=== PATIENT | male | born 1995 | race Caucasian/White ===

== ENCOUNTER 2016-11-01 18:47 | Inpatient (IN) | payer OTHER ==
[~2016-11-01] VITALS: Ht 175.3 cm; Wt 64.5 kg
[2016-11-01] MEDS ORDERED: ACETAMINOPHEN 500 MG TAB PO STA (19:19)
[2016-11-01] MEDS ORDERED: SODIUM CHLORIDE 0.9% 1000ML 1,000 ML IV STA (19:19)
[2016-11-01] MEDS ORDERED: DEXT1LIQ36 PO (19:24)
--- NOTE | 2016-11-01 19:40 | EMERGENCY ROOM VISIT NOTE ---
History First contact with patient: 19:04 Chief Complaint: FEVER Stated Complaint: SWOLLEN FEET History of Present Illness The patient is a 21 year old male who presents to the Emergency Room with complaints of a 4 day history of lower extremity swelling. He noticed that his legs were first swollen on Saturday and have been getting progressively more swollen over the last few days. This afternoon he went to [facility] that found the patient was febrile and recommended he come to the Emergency department. The patient denies any feelings of fever, shortness of breath, chills, chest pain, nausea, vomiting, abdominal pain, muscle pain, diarrhea, dysuria, or any other symptoms. He denies any trauma or abrasions to his feet. He denies any recent travel or sick contacts. The patient was born in [place] and has no history of childhood diseases. Review of Systems See HPI for pertinent positives and negatives. A total of ten systems were reviewed and were otherwise negative. Past Medical/Surgical History Medical Problems: (1) Hypoalbuminemia (2) Neutropenic fever (3) No Known Active Medical Problems Social History Smoking Status: Never Smoker Smokeless Tobacco Use: No Alcohol Use: occasionally Drug Use: none Current/Historical Medications Scheduled PRN Otrcjexsokjnhkid-Fejtffmbko-Ey (Vicks Nyquil Cold & Flu), 1 DOSE PO HS PRN for COLD SYMPTOMS Physical Exam Vital Signs Date Time Temp Pulse Resp B/P (MAP) Pulse Ox O2 Delivery O2 Flow Rate FiO2 11/01/16 22:08 36.9 92 16 99/51 99 Room Air 11/01/16 20:36 37.7 101 18 105/50 99 Room Air 11/01/16 20:05 39.0 11/01/16 18:55 39.5 123 18 110/58 96 Room Air Physical Exam GENERAL: Awake, alert, well-appearing, in no distress HENT: Normocephalic, atraumatic. Oropharynx unremarkable. EYES: Normal conjunctiva. Sclera non-icteric. NECK: Supple. No nuchal rigidity. Trachea midline. RESPIRATORY: Clear to auscultation. CARDIAC: Regular rate, normal rhythm. Extremities warm and well perfused. Pulses equal. ABDOMEN: Soft, non-distended. No tenderness to palpation. No rebound or guarding. No masses. RECTAL: Deferred. MUSCULOSKELETAL: Chest examination reveals no tenderness. The back is symmetrical on inspection without obvious abnormality. There is no CVA tenderness to palpation. No joint edema. LOWER EXTREMITIES: Bilateral extremity swelling, nonpitting edema, warm to touch , no visible abrasions or erythema NEURO: Normal sensorium. No sensory or motor deficits noted. SKIN: No rash or jaundice noted. Medical Decision & Procedures Laboratory Results 11/01/16 19:30 Red Blood Count 2.80, Mean Corpuscular Volume 87.9, Mean Corpuscular Hemoglobin 29.3, Mean Corpuscular Hemoglobin Concent 33.3, Mean Platelet Volume 9.9, Neutrophils (%) (Auto) 53.6, Lymphocytes (%) (Auto) 35.4, Monocytes (%) (Auto) 10.2, Eosinophils (%) (Auto) 0.0, Basophils (%) (Auto) 0.8, Neutrophils # (Auto ) 0.68, Lymphocytes # (Auto) 0.45, Monocytes # (Auto) 0.13, Eosinophils # (Auto ) 0.00, Basophils # (Auto) 0.01 11/01/16 19:30 Test 11/01/16 00:00 11/01/16 19:30 11/01/16 19:35 11/01/16 21:53 Urine Color DK YELLOW Urine Appearance CLEAR (CLEAR) Urine pH 6.5 (4.5-7.5) Urine Specific [place] 1.022 (1.000-1.030) Urine Protein NEG (NEG) Urine Glucose (UA) NEG (NEG) Urine Ketones TRACE (NEG) Urine Occult Blood NEG (NEG) Urine Nitrite NEG (NEG) Urine Bilirubin NEG (NEG) Urine Urobilinogen POS (NEG) Urine Leukocyte Esterase NEG (NEG) Urine WBC (Auto) 0 /hpf (0-5) Urine RBC (Auto) 0-4 /hpf (0-4) Urine Hyaline Casts (Auto) 0 /lpf (0-5) Urine Epithelial Cells (Auto) 5-10 /lpf (0-5) Urine Bacteria (Auto) NEG (NEG) White Blood Count 1.27 K/uL (4.8-10.8) Red Blood Count 2.80 M/uL (4.7-6.1) Hemoglobin 8.2 g/dL (14.0-18.0) Hematocrit 24.6 % (42-52) Mean Corpuscular Volume 87.9 fL (80-100) Mean Corpuscular Hemoglobin 29.3 pg (25-34) Mean Corpuscular Hemoglobin Concent 33.3 g/dl (32-36) Platelet Count 130 K/uL (130-400) Mean Platelet Volume 9.9 fL (7.4-10.4) Neutrophils (%) (Auto) 53.6 % Lymphocytes (%) (Auto) 35.4 % Monocytes (%) (Auto) 10.2 % Eosinophils (%) (Auto) 0.0 % Basophils (%) (Auto) 0.8 % Neutrophils # (Auto) 0.68 K/uL (1.4-6.5) Lymphocytes # (Auto) 0.45 K/uL (1.2-3.4) Monocytes # (Auto) 0.13 K/uL (0.11-0.59) Eosinophils # (Auto) 0.00 K/uL (0-0.5) Basophils # (Auto) 0.01 K/uL (0-0.2) RDW Standard Deviation 57.5 fL (36.4-46.3) RDW Coefficient of Variation 17.8 % (11.5-14.5) Immature Granulocyte % (Auto) 0.0 % Immature Granulocyte # (Auto) 0.00 K/uL (0.00-0.02) Nucleated RBC Absolute Count (auto) 0.02 K/uL (0-0) Nucleated Red Blood Cells % 1.3 % Large Platelets 1+ Polychromasia 1+ Hypochromasia PRESENT Ovalocytes 1+ Erythrocyte Sedimentation Rate 2 mm/hr (0-14) Prothrombin Time 15.7 SECONDS (9.0-12.0) Prothromb Time International Ratio 1.4 (0.9-1.1) Activated Partial Thromboplast Time 31.3 SECONDS (21.0-31.0) Partial Thromboplastin Ratio 1.2 Anion Gap 8.0 mmol/L (3-11) Est Creatinine Clear Calc Drug Dose 96.3 ml/min Estimated GFR () 109.1 Estimated GFR (Non- 94.1 BUN/Creatinine Ratio 12.1 (10-20) Calcium Level 7.4 mg/dl (8.5-10.1) Total Bilirubin 1.6 mg/dl (0.2-1) Direct Bilirubin 0.8 mg/dl (0-0.2) Aspartate Amino Transf (AST/SGOT) 121 U/L (15-37) Alanine Aminotransferase (ALT/SGPT) 110 U/L (12-78) Alkaline Phosphatase 64 U/L (45-117) Total Creatine Kinase 66 U/L (39-308) Creatine Kinase MB < 0.5 ng/ml (0.5-3.6) Creatine Kinase MB Ratio (0-3.0) Troponin I < 0.015 ng/ml (0-0.045) C-Reactive Protein 1.55 mg/dl (0-0.29) Total Protein 6.6 gm/dl (6.4-8.2) Albumin 3.0 gm/dl (3.4-5.0) Lipase 126 U/L (73-393) Lyme Disease IgG Antibody NEG (NEG) Lyme Disease IgM Antibody NEG (NEG) Hepatitis B Surface Antigen NEG (NEG) Hepatitis C Antibody NEG (NEG) Influenza Type A Antigen Neg for Influ A (NEG) Influenza Type B Antigen Neg for Influ B (NEG) Test 11/01/16 22:02 Medications Administered Medications (Trade) Dose Ordered Sig/Ahsan Route Start Time Stop Time Status Last Admin Dose Admin Sodium Chloride 1,000 ml @ 999 mls/hr Q1H1M STAT IV 11/01/16 19:19 11/01/16 20:19 DC 11/01/16 19:19 999 MLS/HR Acetaminophen (Tylenol Tab) 1,000 mg NOW STAT PO 11/01/16 19:19 11/01/16 19:21 DC 11/01/16 19:31 1,000 MG Piperacillin Sod/ Tazobactam Sod (Zosyn Iv) 4.5 gm NOW STAT IV 11/01/16 21:23 11/01/16 21:24 DC 11/01/16 22:06 4.5 GM Medical Decision Patient is a 21 year old male that presents with a 4 day history of lower extremity swelling Differential Diagnosis: Cellulitis, Influenza Virus, Viral Illness, Myocarditis , Pericarditis, Bacterial Infection, Renal Disease Labs Ordered: Blood Culture, CBC, BMP, Liver Profile, ESR, CRP, Lyme, Troponin, CKMB, CK Imaging: Chest Xray, EKG - CBC - Low WBC, RBC, Hgb and Neutropenic - Elevated liver function tests including AST, ALT, and Bili Based on findings discussed case with Dr. Jain who agreed to see the patient and evaluate Impression Primary Impression: Neutropenic fever Additional Impressions: Swelling of lower extremity Elevated liver enzymes Departure Information Dispostion Admitted as an inpatient Condition FAIR Referrals No Doctor, Assigned (PCP) Patient Instructions [facility] Problem Qualifiers
--- NOTE | 2016-11-01 20:01 | DIAGNOSTIC IMAGING REPORT ---
CHEST ONE VIEW PORTABLE HISTORY: Evaluate Fever/Sepsis COMPARISON: None. FINDINGS: The lungs are clear. Cardiac silhouette is normal in size. No pleural effusions. No pneumothorax. IMPRESSION: No acute process. Electronically signed by: Nasir Laboy M.D. 11/01/2016 8:00 PM Dictated Date/Time: 11/01/2016 7:58 PM
[2016-11-01 20:11] LABS: HEMATOCRIT 24.6 % (42-52); MEAN CELL VOLUME 87.9 fL (80-100); MEAN CORPUSCULAR HEMOGLOBIN 29.3 pg (25-34); MEAN CORPUSCULAR HGB CONC 33.3 g/dl (32-36); MEAN PLATELET VOLUME 9.9 fL (7.4-10.4); PLATELET COUNT 130 K/uL (130-400); WHITE BLOOD COUNT 1.27 K/uL (4.8-10.8)
[2016-11-01 20:14] LABS: INR 1.4 (0.9-1.1); PARTIAL THROMBOPLASTIN RATIO 1.2; PROTHROMBIN TIME (PATIENT) 15.7 SECONDS (9.0-12.0)
[2016-11-01 20:19] LABS: BUN/CREATININE RATIO 12.1 (10-20); CALCIUM 7.4 mg/dl (8.5-10.1); CREATININE 1.1 mg/dl (0.60-1.40)
[2016-11-01 20:45] LABS: BASO % 0.8 %; BASO ABS # 0.01 K/uL (0-0.2); COMPLETE YES; HYPOCHROMIA PRESENT; LARGE PLATELETS 1+; LYMPH % 35.4 %; LYMPH ABS # 0.45 K/uL (1.2-3.4); MONO % 10.2 %; NEUT % 53.6 %; OVALOCYTES 1+; POLYCHROMASIA 1+
[2016-11-01 20:54] LABS: LYME DISEASE AB IGG NEG (NEG); LYME DISEASE AB IGM NEG (NEG)
[2016-11-01 20:59] LABS: C-REACTIVE PROTEIN 1.55 mg/dl (0-0.29)
[2016-11-01 21:06] LABS: URINE APPEARANCE CLEAR (CLEAR); URINE BILIRUBIN NEG (NEG); URINE COLOR DK YELLOW; URINE NITRITE NEG (NEG); URINE PH 6.5 (4.5-7.5); URINE SPECIFIC GRAVITY 1.022 (1.000-1.030); UROBILINOGEN POS (NEG); ZZUR CULT IF INDIC CLEAN CATCH NO
[2016-11-01 21:10] LABS: MANUAL MICROSCOPIC REQUIRED? NO; REVIEW REQ? NO
[2016-11-01] MEDS ORDERED: PIPERACILLIN/TAZOBACTAM 3.375 GM/100ML D5W IV STA (21:19)
[2016-11-01] MEDS ORDERED: PIPERACILLIN/TAZOBACTAM 4.5 GM/100ML D5W IV STA (21:23)
[2016-11-01] MEDS ORDERED: MAGNESIUM HYDROXIDE SUSP 30 ML UDC PO PRN (22:00)
[2016-11-01] MEDS ORDERED: ALUMINUM/MAGNESIUM/SIMETH (MAALOX MAX) 30 ML UDC PO PRN (22:00)
[2016-11-01] MEDS ORDERED: ONDANSETRON INJ 2 MG/ML 2 ML VIAL IV PRN (22:00)
[2016-11-01 22:28] LABS: MAGNESIUM 2.3 mg/dl (1.8-2.4); PHOSPHORUS 2.6 mg/dl (2.5-4.9)
[2016-11-01] MEDS ORDERED: PATIENT'S ALLERGY INFO NEEDS ENTERED SCH (22:30)
[2016-11-01 23:24] VITALS: BP 11/67; PULSE 98; TEMP 36.8; O2SAT 99; Ht 175.3 cm; Wt 64.5 kg
[2016-11-02] VITALS (7 sets, daily range): BP systolic 110–111; BP diastolic 62–71; PULSE 97–100; TEMP 36.8–38.3; O2SAT 96–100
[2016-11-02] MEDS: LEVOFLOXACIN / D5W 750 MG in PREMIXED IN D5W 150 ML IV SCH ×2 (00:09→22:27)
--- NOTE | 2016-11-02 01:59 | History and Physical ---
History & Physical Date & Time of Service: Nov 02, 2016 at 01:40 Chief Complaint: Hypoalbuminemia, Neutropenic Fever Primary Care Physician: No Doctor, Assigned History of Present Illness Source: patient This is a 21 yo m with a f[place] background that it presenting to us with bilat LE edema. He states that on Saturday he started to notice this lower extremity edema. Initially it would improve however more recently it has sustained and it concerned him so he came to the ED for evaluation. While here he was found to be febrile, pancytopenic and with +4 bilat LE edema. He was unaware of the fever. He denies chest pain, SOB, presyncope, headache, tinnitus, myalgias, change in urine or bowel habits. 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 He is originally from [place]. No recent changes at home except he recently ended a relationship. He does not know of any blood disorders in the family and denies any medical problems. Very occasional alcohol use and denies using any supplements or drugs. Past Medical/Surgical History NIl Family History Patient reports no known family medical history. Social History Smoking Status: Never Smoker Smokeless Tobacco Use: No Alcohol Use: occasionally Drug Use: none Marital Status: single Occupational Status: [employer] student Allergies Coded Allergies: No Known Allergies (Unverified , 11/01/16) Home Medications Scheduled PRN Citsffuyndfislje-Ptgacbszey-Wq (Vicks Nyquil Cold & Flu), 1 DOSE PO HS PRN for COLD SYMPTOMS Review of Systems Constitutional: + fever, No chills Eyes: No worsening of vision ENT: No hearing loss Respiratory: No cough, No sputum, No wheezing, No shortness of breath, No dyspnea on exertion, No dyspnea at rest Cardiovascular: No chest pain Abdomen: No pain, No nausea, No vomiting, No diarrhea, No constipation Musculoskeletal: + swelling (bilat LE edema), No joint pain, No muscle pain Genitourinary - Male: No hematuria, No dysuria Neurologic: No weakness, No numbness/tingling, No balance problems Psychiatric: No depression symptoms Endocrine: No fatigue Hematologic / Lymphatic: No abnormal bleeding/bruising Integumentary: No rash Physical Exam Vital Signs Date Time Temp Pulse Resp B/P (MAP) Pulse Ox O2 Delivery O2 Flow Rate FiO2 11/01/16 23:24 36.8 98 18 11/ 99 Room Air 11/01/16 22:42 37.2 92 20 107/66 100 Room Air 11/01/16 22:08 36.9 92 16 99/51 99 Room Air 11/01/16 20:36 37.7 101 18 105/50 99 Room Air 11/01/16 20:05 39.0 11/01/16 18:55 39.5 123 18 110/58 96 Room Air General Appearance: no apparent distress, + thin Head: normocephalic, atraumatic Eyes: normal inspection ENT: normal ENT inspection Neck: supple Respiratory/Chest: normal breath sounds, no respiratory distress, no accessory muscle use Cardiovascular: regular rate, rhythm, no murmur Abdomen/GI: normal bowel sounds, non tender, soft Extremities/Musculoskelatal: normal inspection, no calf tenderness, + pedal edema (+4 bilat pedal edema, warm to touch but no erythema) Neurologic/Psych: alert, normal mood/affect, oriented x 3 Skin: normal color, warm/dry, no rash Lymphatic: no adenopathy Diagnostics Laboratory Results Results Past 24 Hours Test 11/01/16 19:30 11/01/16 19:35 11/01/16 22:20 11/02/16 00:00 Range/Units White Blood Count 1.27 4.8-10.8 K/uL Red Blood Count 2.80 4.7-6.1 M/uL Hemoglobin 8.2 14.0-18.0 g/dL Hematocrit 24.6 42-52 % Mean Corpuscular Volume 87.9 80-100 fL Mean Corpuscular Hemoglobin 29.3 25-34 pg Mean Corpuscular Hemoglobin Concent 33.3 32-36 g/dl Platelet Count 130 130-400 K/uL Mean Platelet Volume 9.9 7.4-10.4 fL Neutrophils (%) (Auto) 53.6 % Lymphocytes (%) (Auto) 35.4 % Monocytes (%) (Auto) 10.2 % Eosinophils (%) (Auto) 0.0 % Basophils (%) (Auto) 0.8 % Neutrophils # (Auto) 0.68 1.4-6.5 K/uL Lymphocytes # (Auto) 0.45 1.2-3.4 K/uL Monocytes # (Auto) 0.13 0.11-0.59 K/uL Eosinophils # (Auto) 0.00 0-0.5 K/uL Basophils # (Auto) 0.01 0-0.2 K/uL RDW Standard Deviation 57.5 36.4-46.3 fL RDW Coefficient of Variation 17.8 11.5-14.5 % Immature Granulocyte % (Auto) 0.0 % Immature Granulocyte # (Auto) 0.00 0.00-0.02 K/uL Nucleated RBC Absolute Count (auto) 0.02 0-0 K/uL Nucleated Red Blood Cells % 1.3 % Large Platelets 1+ Polychromasia 1+ Hypochromasia PRESENT Ovalocytes 1+ Erythrocyte Sedimentation Rate 2 0-14 mm/hr Absolute Reticulocyte Count 0.08 0.02-0.10 10^6/uL Percent Reticulocyte Count 3.0 0.5-2.0 % Prothrombin Time 15.7 9.0-12.0 SECONDS Prothromb Time International Ratio 1.4 0.9-1.1 Activated Partial Thromboplast Time 31.3 21.0-31.0 SECONDS Partial Thromboplastin Ratio 1.2 Sodium Level 134 136-145 mmol/L Potassium Level 4.0 3.5-5.1 mmol/L Chloride Level 99 98-107 mmol/L Carbon Dioxide Level 27 21-32 mmol/L Anion Gap 8.0 3-11 mmol/L Blood Urea Nitrogen 13 7-18 mg/dl Creatinine 1.10 0.60-1.40 mg/dl Est Creatinine Clear Calc Drug Dose 96.3 ml/min Estimated GFR () 109.1 Estimated GFR (Non- 94.1 BUN/Creatinine Ratio 12.1 10-20 Random Glucose 92 70-99 mg/dl Calcium Level 7.4 8.5-10.1 mg/dl Phosphorus Level 2.6 2.5-4.9 mg/dl Magnesium Level 2.3 1.8-2.4 mg/dl Total Bilirubin 1.6 0.2-1 mg/dl Direct Bilirubin 0.8 0-0.2 mg/dl Aspartate Amino Transf (AST/SGOT) 121 15-37 U/L Alanine Aminotransferase (ALT/SGPT) 110 12-78 U/L Alkaline Phosphatase 64 45-117 U/L Total Creatine Kinase 66 39-308 U/L Creatine Kinase MB < 0.5 0.5-3.6 ng/ml Creatine Kinase MB Ratio 0-3.0 Troponin I < 0.015 0-0.045 ng/ml C-Reactive Protein 1.55 0-0.29 mg/dl Total Protein 6.6 6.4-8.2 gm/dl Albumin 3.0 3.4-5.0 gm/dl Lipase 126 73-393 U/L Lyme Disease IgG Antibody NEG NEG Lyme Disease IgM Antibody NEG NEG Hepatitis B Surface Antigen NEG NEG Hepatitis C Antibody NEG NEG Influenza Type A Antigen Neg for Influ A NEG Influenza Type B Antigen Neg for Influ B NEG Monoscreen NEG NEG Acetaminophen Level 10 10-30 ug/ml Microbiology Results 11/01/16 Blood Culture, Received Pending 11/01/16 Blood Culture, Received Pending Diagnostic Radiology [~ rep ct add3]] CHEST ONE VIEW PORTABLE HISTORY: Evaluate Fever/Sepsis COMPARISON: None. FINDINGS: The lungs are clear. Cardiac silhouette is normal in size. No pleural effusions. No pneumothorax. IMPRESSION: No acute process. Impression Assessment and Plan This is a 21 yo m suffering from pancytopenia, neutropenic fever, elevated liver enzymes and bilat LE edema Pancytopenia; neutropenic fever - viral vs malignancy vs toxin - medsurg admission with neutropenic cautions - Zosyn/ Levaquin empirically - Tylenol for fever control - There is some thought that considering his [facility] background he is potentially sickle celled and if this was secondary to parvovirus - Parvovirus, CMV, EBV, hepatitis and Lyme - consider sickle w/u after clinical improvement - hem/ onc consult - lead levels - peripheral smear - ID consult Elevated LFT; hypoalbuminemia and Coag - USG of abd - consider CT abd if USG is equivocal and worsening LFT - Follow coag closely DVT Prophylaxis - Elevated INR, will use SCD FULL CODE Please call parents with updates: Mother- Carolyn [phone] Father- Angelo - [phone] Level of Care Med/Surg Advanced Directives Existing Living Will: No Existing Power of Windows Consultant: No Resuscitation Status FULL RESUSCITATION VTE Prophylaxis VTE Risk Assessment Done? Y/N: Yes Risk Level: Low Given or contraindicated: SCD's Social Service Consult None Apply Note Total Time: Critical Care 30 - 74 minutes Assessment and Plan Attending Addendum: I have physically seen and examined this patient, have directed their medical care, have supervised the medical residents activities, and agree with the H&P as noted above, with the following changes: NONE
[2016-11-02] MEDS ORDERED: PIPERACILL/TAZOBAC IV 4.5 GM in DEXTROSE 5% 100ML 100 ML IV SCH (02:00)
--- NOTE | 2016-11-02 07:55 | DIAGNOSTIC IMAGING REPORT ---
ABDOMEN COMPLETE (US) CLINICAL HISTORY: Neutropenia and elevated liver function tests. COMPARISON STUDY: No previous studies for comparison. FINDINGS: The liver is mildly enlarged and heterogeneous. No well-defined hepatic lesions are present but small hepatic lesions would be difficult to exclude on this study. There is a small amount of abdominal ascites. There is no biliary ductal dilatation. Moderate gallbladder wall thickening is noted. There was no sonographic Horne sign. A small amount of pericholecystic fluid is noted. Echogenic nonmobile structures adherent to the gallbladder wall suggest polyps. There is no pancreatic ductal dilatation. Peripancreatic hypoechoic structures likely reflect enlarged lymph nodes which measure up to 4.2 x 1.2 x 3.3 cm. Enlarged lymph nodes within the splenic hilum are noted as well as within the holly hepatis. The spleen is moderately enlarged, measuring 16.9 cm in maximal dimension. There is an equivocal 4 cm splenic lesion. There are innumerable hypoechoic splenic lesions which measure up to 8 mm. There is no hydronephrosis. The right kidney measures 10.9 x 4.2 x 6.5 cm and left measures 11.5 x 5.6 x 3.8 cm. The caliber of the abdominal aorta is normal. IMPRESSION: 1. Moderate hepatosplenomegaly with innumerable small splenic lesions and possible small hepatic lesions. Apparent 4 cm splenic mass may reflect a portion of the spleen. Moderate abdominal lymphadenopathy. Overall, an infectious process is favored. However, lymphoma/leukemia could appear similar. 2. Trace abdominal ascites. 3. Moderate gallbladder wall thickening, a nonspecific finding. No convincing evidence for acute cholecystitis. Multiple small gallbladder polyps. No shadowing gallstones. Electronically signed by: Otto Guzman M.D. 11/02/2016 7:54 AM Dictated Date/Time: 11/02/2016 7:36 AM
[2016-11-02 08:35] LABS: INR 1.6 (0.9-1.1); PARTIAL THROMBOPLASTIN RATIO 1.4; PROTHROMBIN TIME (PATIENT) 16.9 SECONDS (9.0-12.0)
[2016-11-02] MEDS: ACETAMINOPHEN 325 MG TAB PO PRN ×3 (08:49→22:27)
[2016-11-02 08:52] LABS: BUN/CREATININE RATIO 11.4 (10-20); CREATININE 0.96 mg/dl (0.60-1.40); POTASSIUM 3.6 mmol/L (3.5-5.1)
[2016-11-02 08:55] LABS: ALB/GLOB RATIO 0.7 (0.9-2); CALCIUM 7.4 mg/dl (8.5-10.1)
--- NOTE | 2016-11-02 09:06 | ONCOLOGY CONSULTATION ---
DATE OF CONSULTATION: 11/02/2016 REASON FOR CONSULTATION: Pancytopenia. HISTORY OF PRESENT ILLNESS: Carson is a pleasant 21-year-old gentleman with patient background, who presented to the Emergency Room with subacute onset bilateral lower extremity edema. For the most part had felt well, but he noticed on Saturday of this week, increased swelling of his feet. He had contacted his parents seeking advice. Interestingly, he is asymptomatic otherwise, continued to work at the [employer] without difficulty. 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 He denies any recent travels. He recently became sexually active, but is no longer in relations with that partner. He admits to protected sex. On admission, his physical exam was remarkable for lower extremity edema. Laboratory results on admission reflect pancytopenia and elevated liver transaminases and hypoalbuminemia. Ultrasound of the abdomen confirmed hepatosplenomegaly with multiple splenic lesions. Regional lymph nodes were also noted. PAST MEDICAL HISTORY: Negative. FAMILY HISTORY: Negative. MEDICATIONS: Was utilizing Nyquil p.r.n. for cold symptoms. ALLERGIES: No known drug allergies. SOCIAL HISTORY: Again, he is single, [employer] student. Occasionally consumes alcohol. Nonsmoker and non-illicit drug user. REVIEW OF SYSTEMS: Positive for low grade fever. He denies weight loss or anorexia. HEENT: Negative for headaches, lightheadedness or dizziness. No dysphagia or sore throat. No sinus symptoms notable. LYMPH: Positive for axillary lymphadenopathy. CARDIAC: Negative for coronary artery disease. No current angina or palpitations. PULMONARY: Negative for COPD. No shortness of breath, dyspnea or orthopnea. No cough or hemoptysis. GASTROINTESTINAL: Negative for abdominal pain, nausea, vomiting, diarrhea or constipation, hematochezia or melena stools. GENITOURINARY: No hematuria, dysuria, urinary incontinence. PSYCHIATRIC: Negative for anxiety or depression by history. ENDOCRINE: Negative for diabetes or thyroid by history. NEUROLOGIC: Negative for seizure, stroke, or migraine headaches by history. HEMATOLOGIC: Positive for pancytopenia. PHYSICAL EXAMINATION: GENERAL: Very pleasant 21-year-old gentleman, in no acute distress. VITAL SIGNS: Temperature of 37.9, pulse 100, respirations 18, blood pressure 111/62. SKIN: Without rash or lesion. No evidence of petechiae or ecchymosis. HEAD: Atraumatic, normocephalic. EYES: PERRLA, EOMI. Sclerae nonicteric. No conjunctival injection. Nares are patent without rhinorrhea or discharge. Throat is clear. Tongue is midline. Mucous membranes are moist. NECK: Supple without JVD or thyromegaly. LYMPH: Palpable right-sided axillary lymphadenopathy. HEART: Regular rate and rhythm. No clicks, rubs, murmurs or gallops. LUNGS: Clear to auscultation bilaterally. ABDOMEN: Palpable hepatosplenomegaly. No rigidity or guarding. Bowel sounds are active. EXTREMITIES: Equal strength and pulses. Clearly, there is 1-2+ peripheral edema of his lower extremities. NEUROLOGICALLY: The patient is awake, alert, and oriented x3. Cranial nerves II-XII are intact. There are no motor or sensory deficits. LABORATORY DATA: From admission, WBC count 1270, hemoglobin 8.2, platelet count 130,000, absolute neutrophil count 680. His reticulocytes 3%. Sodium 134, potassium 4.0, chloride 99, carbon dioxide 27, BUN 13, creatinine 1.1, AST 121, ALT 110. Direct bili 0.8, total bili 1.6, albumin 3. IMAGING: Ultrasound of the abdomen confirms moderate hepatosplenomegaly with innumerable small splenic lesions and possible small hepatic lesions. A 4 cm splenic mass thought to reflect portion of the spleen, moderate abdominal lymphadenopathy is also noted. Moderate gallbladder wall thickening, and trace abdominal ascites. IMPRESSION: 1. Pancytopenia. 2. Hypoalbuminemia. 3. Elevated liver transaminases. 4. Neutropenic fever. PLAN: I had the pleasure of visiting with Renataael at bedside. I am amazed that he is not more symptomatic based on his radiographic and laboratory findings. I believe his myelosuppression is most likely due to an infectious (viral) process. I agree with the current workup and empiric antibiotics. I will take the liberty of ordering a CT scan of the chest, abdomen and pelvis to further characterize lymphadenopathy. There is a palpable axillary lymph node which could be removed for analysis, if believed he may be suffering from a lymphoproliferative process. With the subacute onset, however, I would favor an infectious etiology versus neoplastic. He is asymptomatic at present. I will recommend monitoring his counts on a daily basis and review titer results as they become available. Thank you very much for allowing me to participate in his care. If you have any questions or concerns, feel free to contact me at any time. YE
[2016-11-02] MEDS ORDERED: VANCOMYCIN CONSULT ACTIVE PRN (09:15)
[2016-11-02] MEDS ORDERED: PIPERACILL/TAZOBAC CONSULT ACTIVE PRN (09:15)
[2016-11-02] MEDS ORDERED: VANCOMYCIN INJ 1,600 MG in SODIUM CHLORIDE 0.9% 500ML 500 ML IV ONE (09:30)
[2016-11-02 09:39] LABS: HEMATOCRIT 23.2 % (42-52); MEAN CELL VOLUME 88.5 fL (80-100); MEAN CORPUSCULAR HEMOGLOBIN 27.5 pg (25-34); MEAN PLATELET VOLUME 9.6 fL (7.4-10.4); PLATELET COUNT 126 K/uL (130-400); RED BLOOD COUNT 2.62 M/uL (4.7-6.1); WHITE BLOOD COUNT 0.97 K/uL (4.8-10.8)
[2016-11-02] MEDS: PIPERACILL/TAZOBAC IV 3.375 GM in DEXTROSE 5% 100ML IV SCH ×2 (09:40→18:26)
[2016-11-02 10:37] LABS: BASO ABS # 0.01 K/uL (0-0.2); COMPLETE YES; LYMPH ABS # 0.31 K/uL (1.2-3.4); MONO % 9.3 %; NEUT % 56.7 %
[2016-11-02 10:44] LABS: ANISOCYTOSIS PRESENT; GIANT PLATELETS 1+; LARGE PLATELETS 2+; POIKILOCYTOSIS PRESENT
[2016-11-02 11:11] LABS: FERRITIN 4428.6 ng/ml (8.0-388.0); THYROID STIMULATING HORMONE 2.44 uIu/ml (0.300-4.500)
--- NOTE | 2016-11-02 12:12 | Progress Note ---
Progress Note Date of Service Nov 02, 2016. Progress Note ID Consult Dictated # [id number] A/P: 1. Febrile neutropenia - infectious vs heme source 2. Transaminitis -continue abx for now, will add doxy ? tick borne illness -Check tick borne serologies, lyme screen negative -Parvo pending, cmv, ebv pending, add toxo -HIV negative, doubt acute retroviral syndrome -ct abd/pelvis, follow results -will follow, thank you
--- NOTE | 2016-11-02 12:27 | Family Medicine Progress Note ---
Progress Note Date of Service Nov 02, 2016. Subjective Pt evaluation today including: conversation w/ patient, physical exam, chart review, lab review Pain: None PO Intake: Good Voiding: no voiding problems Doing well at this time Re-capped patient history. Has had 2 days of lower extremity swelling. No pain. No recent travel or immobility. Denies chest pain or orthopnea. Denies any coughing or sputum production. Weight has been stable. No constitutional symptoms. This has never happened to him before. First sexual encounter 1 month ago, wore condom. No other sexual contacts. Denies drug use. No issues since admission. Constitutional: No fever, No sweats Eyes: No worsening of vision, No eye pain, No redness ENT: No hearing loss, No unusual epistaxis, No nasal symptoms, No sore throat Respiratory: No cough, No sputum, No wheezing, No shortness of breath Cardiovascular: No chest pain, No orthopnea, No palpitations Abdomen: No pain, No nausea, No vomiting, No diarrhea, No constipation Male : No dysuria, No urinary frequency, No incontinence Neurologic: No weakness, No numbness/tingling, No vertigo Heme: No clotting problems, No swollen lymph nodes Endo: No fatigue, No excessive thirst, No excessive urination Skin: No rash, No new/changing skin lesions, No color change All Other Systems: Reviewed and Negative Medications Current Inpatient Medications Medications (Trade) Dose Ordered Sig/Ahsan Route Start Time Stop Time Status Last Admin Dose Admin Acetaminophen (Tylenol Tab) 650 mg Q4H PRN PO 11/01/16 22:00 12/01/16 21:59 11/02/16 08:49 650 MG Al Hydrox/Mg Hydrox/Simethicone (Maalox Max Susp) 15 ml Q4H PRN PO 11/01/16 22:00 12/01/16 21:59 Magnesium Hydroxide (Milk Of Magnesia Susp) 30 ml Q6H PRN PO 11/01/16 22:00 12/01/16 21:59 Ondansetron HCl (Zofran Inj) 4 mg Q6H PRN IV 11/01/16 22:00 12/01/16 21:59 Levofloxacin 750 mg/Prmx 150 ml @ 100 mls/hr Q24H IV 11/01/16 23:00 11/03/16 22:59 11/02/16 00:09 100 MLS/HR Vancomycin HCl (Consult) 1 ea UD PRN N/A 11/02/16 09:15 12/02/16 09:14 Piperacillin Sod/ Tazobactam Sod (Consult) 1 ea UD PRN N/A 11/02/16 09:15 12/02/16 09:14 Piperacillin Sod/ Tazobactam Sod 3.375 gm/Dextrose 115 ml @ 28.75 mls/ hr Q8@0200,1000,1800 IV 11/02/16 10:00 11/04/16 01:59 11/02/16 09:40 28.75 MLS/HR Vancomycin HCl 1000 mg/Sodium Chloride 270 ml @ 125 mls/hr Q8@0200,1000,1800 IV 11/02/16 18:00 11/04/16 09:59 Objective Vital Signs Date Time Temp Pulse Resp B/P (MAP) Pulse Ox O2 Delivery O2 Flow Rate FiO2 11/02/16 08:30 100 Room Air 11/02/16 07:21 37.9 100 18 111/62 (78) 100 Room Air 11/01/16 23:24 36.8 98 18 11/67 99 Room Air 11/01/16 22:42 37.2 92 20 107/66 100 Room Air 11/01/16 22:08 36.9 92 16 99/51 99 Room Air 11/01/16 20:36 37.7 101 18 105/50 99 Room Air 11/01/16 20:05 39.0 11/01/16 18:55 39.5 123 18 110/58 96 Room Air Physical Exam General Appearance: WD/WN, no apparent distress, + thin Eyes: normal inspection, EOMI ENT: hearing grossly normal, pharynx normal Neck: supple, no adenopathy, no JVD Respiratory/Chest: lungs clear, no respiratory distress Cardiovascular: regular rate, rhythm, no gallop, no murmur Abdomen: non tender, soft, + hepatomegaly Extremities: non-tender, + swelling (1+ pitting, a third way up legs bilaterlly ; non-tender, negative kristine') Neurologic/Psychiatric: alert, normal mood/affect, oriented x 3 Skin: normal color, warm/dry, no rash Laboratory Results Last 24 Hours Test 11/01/16 19:30 11/01/16 19:35 11/01/16 22:20 11/02/16 00:00 White Blood Count 1.27 K/uL Red Blood Count 2.80 M/uL Hemoglobin 8.2 g/dL Hematocrit 24.6 % Mean Corpuscular Volume 87.9 fL Mean Corpuscular Hemoglobin 29.3 pg Mean Corpuscular Hemoglobin Concent 33.3 g/dl Platelet Count 130 K/uL Mean Platelet Volume 9.9 fL Neutrophils (%) (Auto) 53.6 % Lymphocytes (%) (Auto) 35.4 % Monocytes (%) (Auto) 10.2 % Eosinophils (%) (Auto) 0.0 % Basophils (%) (Auto) 0.8 % Neutrophils # (Auto) 0.68 K/uL Lymphocytes # (Auto) 0.45 K/uL Monocytes # (Auto) 0.13 K/uL Eosinophils # (Auto) 0.00 K/uL Basophils # (Auto) 0.01 K/uL RDW Standard Deviation 57.5 fL RDW Coefficient of Variation 17.8 % Immature Granulocyte % (Auto) 0.0 % Immature Granulocyte # (Auto) 0.00 K/uL Nucleated RBC Absolute Count (auto) 0.02 K/uL Nucleated Red Blood Cells % 1.3 % Large Platelets 1+ Polychromasia 1+ Hypochromasia PRESENT Ovalocytes 1+ Peripheral Blood Smear Path Consult Erythrocyte Sedimentation Rate 2 mm/hr Absolute Reticulocyte Count 0.08 10^6/uL Percent Reticulocyte Count 3.0 % Prothrombin Time 15.7 SECONDS Prothromb Time International Ratio 1.4 Activated Partial Thromboplast Time 31.3 SECONDS Partial Thromboplastin Ratio 1.2 Sodium Level 134 mmol/L Potassium Level 4.0 mmol/L Chloride Level 99 mmol/L Carbon Dioxide Level 27 mmol/L Anion Gap 8.0 mmol/L Blood Urea Nitrogen 13 mg/dl Creatinine 1.10 mg/dl Est Creatinine Clear Calc Drug Dose 96.3 ml/min Estimated GFR () 109.1 Estimated GFR (Non- 94.1 BUN/Creatinine Ratio 12.1 Random Glucose 92 mg/dl Calcium Level 7.4 mg/dl Phosphorus Level 2.6 mg/dl Magnesium Level 2.3 mg/dl Total Bilirubin 1.6 mg/dl Direct Bilirubin 0.8 mg/dl Aspartate Amino Transf (AST/SGOT) 121 U/L Alanine Aminotransferase (ALT/SGPT) 110 U/L Alkaline Phosphatase 64 U/L Total Creatine Kinase 66 U/L Creatine Kinase MB < 0.5 ng/ml Creatine Kinase MB Ratio Troponin I < 0.015 ng/ml C-Reactive Protein 1.55 mg/dl Total Protein 6.6 gm/dl Albumin 3.0 gm/dl Lipase 126 U/L Lyme Disease IgG Antibody NEG Lyme Disease IgM Antibody NEG Hepatitis B Surface Antigen NEG Hepatitis C Antibody NEG Influenza Type A Antigen Neg for Influ A Influenza Type B Antigen Neg for Influ B Monoscreen NEG Acetaminophen Level 10 ug/ml Test 11/02/16 07:54 11/02/16 09:36 11/02/16 12:12 White Blood Count 0.97 K/uL Red Blood Count 2.62 M/uL Hemoglobin 7.2 g/dL Hematocrit 23.2 % Mean Corpuscular Volume 88.5 fL Mean Corpuscular Hemoglobin 27.5 pg Mean Corpuscular Hemoglobin Concent 31.0 g/dl Platelet Count 126 K/uL Mean Platelet Volume 9.6 fL Neutrophils (%) (Auto) 56.7 % Lymphocytes (%) (Auto) 32.0 % Monocytes (%) (Auto) 9.3 % Eosinophils (%) (Auto) 1.0 % Basophils (%) (Auto) 1.0 % Neutrophils # (Auto) 0.55 K/uL Lymphocytes # (Auto) 0.31 K/uL Monocytes # (Auto) 0.09 K/uL Eosinophils # (Auto) 0.01 K/uL Basophils # (Auto) 0.01 K/uL RDW Standard Deviation 58.4 fL RDW Coefficient of Variation 18.0 % Immature Granulocyte % (Auto) 0.0 % Immature Granulocyte # (Auto) 0.00 K/uL Large Platelets 2+ Giant Platelets 1+ Poikilocytosis PRESENT Anisocytosis PRESENT Prothrombin Time 16.9 SECONDS Prothromb Time International Ratio 1.6 Activated Partial Thromboplast Time 36.4 SECONDS Partial Thromboplastin Ratio 1.4 Sodium Level 136 mmol/L Potassium Level 3.6 mmol/L Chloride Level 100 mmol/L Carbon Dioxide Level 26 mmol/L Anion Gap 10.0 mmol/L Blood Urea Nitrogen 11 mg/dl Creatinine 0.96 mg/dl Est Creatinine Clear Calc Drug Dose 109.2 ml/min Estimated GFR () 128.6 Estimated GFR (Non- 111.0 BUN/Creatinine Ratio 11.4 Random Glucose 88 mg/dl Calcium Level 7.4 mg/dl Total Bilirubin 1.5 mg/dl Aspartate Amino Transf (AST/SGOT) 98 U/L Alanine Aminotransferase (ALT/SGPT) 93 U/L Alkaline Phosphatase 48 U/L Total Protein 5.7 gm/dl Albumin 2.4 gm/dl Globulin 3.3 gm/dl Albumin/Globulin Ratio 0.7 Iron Level 44 mcg/dl Total Iron Binding Capacity 145 mcg/dl Ferritin 4428.6 ng/ml Vitamin B12 Level 299 pg/mL Folate 15.27 ng/mL Thyroid Stimulating Hormone (TSH) 2.440 uIu/ml HIV (1&2) Ab and P24 Ag, 4th Gener NEG Assessment and Plan 21 year old male presenting with new onset lower extremity edema bilaterally x 2 days. Evaluation in the ER reveals neutropenia and anemia. He is admitted for further work-up. Pancytopenia - Neutropenia with Normocytic Anemia - DDx: Hematological malignancy vs BM suppression 2/2 self-limited viral infection - Keep on Neutropenic precautions - Empiric antibiotics: Zosyn, Levaquin and Vancomycin - Hematological evaluation Peripheral smear pending; elevated bilirubin may suggest hemolysis Elevated reticulocyte count suggesting increasing BM output and expected elevated RDW Abdominal US suggests liver and splenic lesions: these favor infective process, though malignancy process could not be excluded Per Hematology, CT scan of chest and abdomen/pelvis pending - Infection Panel evaluation CMV, Parvovirus and EBV serologies are pending HIV is negative - Other infection: Lyme pending, influenza negative - Rheumatological evaluation AMADEO pending ESR normal - Nutritional Evaluation Iron studies: normal iron, elevated ferritin and TIBC Normal B12 and Folate - Endocrine Normal TSH - Toxic: pending lead level Elevated LFT; hypoalbuminemia and Coag - Liver U/S notes innumerable hepatic and splenic lesions - INR increased to 1.6 this morning - T bili 1.5 this morning - Mild transaminitis resolving - Per Hematology/Oncology; CT pending, will further characterize hepatosplenic lesions Bilateral pedal edema - ? sec to hypoalbuminemia. follow. - No protein in urine DVT Prophylaxis - SCD - Physiologically anticoagulated at this time; no pharmacological prophylaxis Disposition - Med/Surg - Needs to remain in hospital due to neutropenia and need for CBC monitoring and neutropenic precautiosn Continued [facility] stay due to: other (immunosuppressed) Discharge planning: home Reviewed: Pt Seen/Exam by Me History 21 y/o admitted overnight for fever and noted to be neutropenic denies any other concerns EENTM: denies: eye pain, blurred vision Respiratory: negative: short of breath Cardiovascular: denies chest pain Gastrointestinal/Abdominal: negative: abdominal pain Musculoskeletal: negative: back pain Neurological/Psych: negative: headache General Appearance: no apparent distress Respiratory: lungs clear, no respiratory distress Cardiovascular: regular rate, rhythm Gastrointestinal: normal bowel sounds, non tender, soft Extremities: pedal edema Neurologic/Psychiatric: alert, oriented x 3 Skin Characteristics: warm/dry Assessment/Plan I have reviewed the medical record and performed a history and physical examination of this patient today. I have discussed the case with Dr Cates. The above note reflects my findings, conclusions, and recommendations.
[2016-11-02] MEDS ORDERED: OPTIRAY 320 IV PRN (12:45)
--- NOTE | 2016-11-02 12:46 | DIAGNOSTIC IMAGING REPORT ---
CT OF THE CHEST WITH IV CONTRAST CLINICAL HISTORY: lymph node enlargement COMPARISON STUDY: Chest x-ray dated 11/01/2016 TECHNIQUE: Following the IV administration of 93 mL of Optiray-320, CT of the thorax was performed from the thoracic inlet to the lung bases. Images are reviewed in the axial, sagittal, and coronal planes. IV contrast was administered without complication. CT DOSE: 501.21 mGy.cm FINDINGS: Thyroid: Imaged portions of the thyroid gland are normal in appearance. Thoracic aorta: The thoracic aorta is normal in course and caliber, noting standard 3-vessel arch anatomy. No aneurysm or dissection is seen. Pulmonary vasculature: The pulmonary trunk is normal in caliber. There are no central filling defects identified to suggest pulmonary embolus. Note that this examination was not protocoled for the evaluation of pulmonary emboli. HEART: The heart is normal in size and configuration, without pericardial effusion. Lungs and pleural spaces: There is a small right pleural effusion and trace left pleural effusion. There are minor right basilar atelectatic changes. There are no areas of parenchymal consolidation to indicate a pneumonia. Mediastinum: There is no mediastinal lymphadenopathy. Teena: Clear. Axilla: There is moderate right axillary lymphadenopathy. There is a borderline-enlarged left subclavicular lymph node. Upper abdomen: There is heterogeneous hepatic enhancement. The spleen appears enlarged with multiple splenic nodules. Skeletal structures: There are no lytic or blastic osseous lesions. IMPRESSION: 1. Small right pleural effusion and trace left pleural effusion 2. Moderate right axillary lymphadenopathy 3. No evidence of focal parenchymal consolidation. No suspicious pulmonary masses. 4. Heterogeneous hepatic enhancement 5. Splenomegaly. Multiple splenic nodules. Electronically signed by: Srikanth Hester M.D. 11/02/2016 12:45 PM Dictated Date/Time: 11/02/2016 12:39 PM
--- NOTE | 2016-11-02 13:09 | DIAGNOSTIC IMAGING REPORT ---
ABDOMEN AND PELVIS CT WITH IV AND ORAL CONTRAST CT DOSE: HISTORY: Lymphadenopathy TECHNIQUE: Multiaxial CT images of the abdomen and pelvis were performed following the use of intravenous and oral contrast. COMPARISON STUDY: None. FINDINGS: Small right pleural effusion. Trace left pleural effusion. The liver is diffusely heterogeneous. This is likely due to multiple small hepatic lesions. These lesions are subcentimeter in size with the largest in the right hepatic lobe measuring 9 mm. The spleen is enlarged measuring 16 cm in length. The liver measures 21 cm in length. The main portal vein and hepatic veins are patent. The gallbladder is decompressed. The spleen is also heterogeneous. There appear to be a multiple scattered splenic hypodense lesions. Dominant lesion anteriorly measures 2.9 cm. An 8 mm hypodense lesion within the right kidney is too small to characterize. Normal left kidney. Small amount of ascites. Normal bladder. No bowel wall thickening or obstruction. The pancreas is unremarkable. Periportal lymphadenopathy. Dominant periportal lymph node measures 2.6 cm. A few mildly enlarged right anterior diaphragmatic lymph nodes measuring 11 mm. IMPRESSION: 1. Hepatosplenomegaly with multiple scattered lesions seen throughout the liver and spleen. This can be seen in the setting of leukemia/lymphoma or an atypical infectious process. 2. Periportal lymphadenopathy. There are few mildly enlarged right anterior diaphragmatic lymph nodes. 3. Small amount of ascites. 4. Small right and trace left pleural effusion. Electronically signed by: Nasir Laboy M.D. 11/02/2016 1:07 PM Dictated Date/Time: 11/02/2016 12:56 PM
--- NOTE | 2016-11-02 13:13 | Pharmacy Progress Note ---
Pharmacy Abx Initial Consult Date of Service Nov 02, 2016. Pharmacy Dosing Scope Date of Consult: 11/02/16 Consultation requested by: Dr. Cates Pharmacy is consulted to initiate vancomycin and Zosyn IV dosing therapy, order appropriate labs and adjust drug dose/frequency. Subjective The patient is a 21 year old male admitted on Nov 01, 2016 at 22:00 for pancytopenia, neutropenic fever. No pertinent PMH. Objective Height (Feet): 5 Height (Inches): 9.00 Weight (Kilograms): 64.500 Vital Signs (Past 12Hrs) Vital Signs Past 12 Hours Date Time Temp Pulse Resp B/P (MAP) Pulse Ox O2 Delivery O2 Flow Rate FiO2 11/02/16 08:30 100 Room Air 11/02/16 07:21 37.9 100 18 111/62 (78) 100 Room Air Lab Results (24Hrs) Test 11/01/16 19:30 11/01/16 19:35 11/01/16 22:20 11/02/16 00:00 White Blood Count 1.27 K/uL (4.8-10.8) Red Blood Count 2.80 M/uL (4.7-6.1) Hemoglobin 8.2 g/dL (14.0-18.0) Hematocrit 24.6 % (42-52) Mean Corpuscular Volume 87.9 fL (80-100) Mean Corpuscular Hemoglobin 29.3 pg (25-34) Mean Corpuscular Hemoglobin Concent 33.3 g/dl (32-36) Platelet Count 130 K/uL (130-400) Mean Platelet Volume 9.9 fL (7.4-10.4) Neutrophils (%) (Auto) 53.6 % Lymphocytes (%) (Auto) 35.4 % Monocytes (%) (Auto) 10.2 % Eosinophils (%) (Auto) 0.0 % Basophils (%) (Auto) 0.8 % Neutrophils # (Auto) 0.68 K/uL (1.4-6.5) Lymphocytes # (Auto) 0.45 K/uL (1.2-3.4) Monocytes # (Auto) 0.13 K/uL (0.11-0.59) Eosinophils # (Auto) 0.00 K/uL (0-0.5) Basophils # (Auto) 0.01 K/uL (0-0.2) RDW Standard Deviation 57.5 fL (36.4-46.3) RDW Coefficient of Variation 17.8 % (11.5-14.5) Immature Granulocyte % (Auto) 0.0 % Immature Granulocyte # (Auto) 0.00 K/uL (0.00-0.02) Nucleated RBC Absolute Count (auto) 0.02 K/uL (0-0) Nucleated Red Blood Cells % 1.3 % Large Platelets 1+ Polychromasia 1+ Hypochromasia PRESENT Ovalocytes 1+ Peripheral Blood Smear Path Consult Erythrocyte Sedimentation Rate 2 mm/hr (0-14) Absolute Reticulocyte Count 0.08 10^6/uL (0.02-0.10) Percent Reticulocyte Count 3.0 % (0.5-2.0) Prothrombin Time 15.7 SECONDS (9.0-12.0) Prothromb Time International Ratio 1.4 (0.9-1.1) Activated Partial Thromboplast Time 31.3 SECONDS (21.0-31.0) Partial Thromboplastin Ratio 1.2 Sodium Level 134 mmol/L (136-145) Potassium Level 4.0 mmol/L (3.5-5.1) Chloride Level 99 mmol/L (98-107) Carbon Dioxide Level 27 mmol/L (21-32) Anion Gap 8.0 mmol/L (3-11) Blood Urea Nitrogen 13 mg/dl (7-18) Creatinine 1.10 mg/dl (0.60-1.40) Est Creatinine Clear Calc Drug Dose 96.3 ml/min Estimated GFR () 109.1 Estimated GFR (Non- 94.1 BUN/Creatinine Ratio 12.1 (10-20) Random Glucose 92 mg/dl (70-99) Calcium Level 7.4 mg/dl (8.5-10.1) Phosphorus Level 2.6 mg/dl (2.5-4.9) Magnesium Level 2.3 mg/dl (1.8-2.4) Total Bilirubin 1.6 mg/dl (0.2-1) Direct Bilirubin 0.8 mg/dl (0-0.2) Aspartate Amino Transf (AST/SGOT) 121 U/L (15-37) Alanine Aminotransferase (ALT/SGPT) 110 U/L (12-78) Alkaline Phosphatase 64 U/L (45-117) Total Creatine Kinase 66 U/L (39-308) Creatine Kinase MB < 0.5 ng/ml (0.5-3.6) Creatine Kinase MB Ratio (0-3.0) Troponin I < 0.015 ng/ml (0-0.045) C-Reactive Protein 1.55 mg/dl (0-0.29) Total Protein 6.6 gm/dl (6.4-8.2) Albumin 3.0 gm/dl (3.4-5.0) Lipase 126 U/L (73-393) Lyme Disease IgG Antibody NEG (NEG) Lyme Disease IgM Antibody NEG (NEG) Hepatitis B Surface Antigen NEG (NEG) Hepatitis C Antibody NEG (NEG) Influenza Type A Antigen Neg for Influ A (NEG) Influenza Type B Antigen Neg for Influ B (NEG) Monoscreen NEG (NEG) Acetaminophen Level 10 ug/ml (10-30) Test 11/02/16 07:54 11/02/16 09:36 11/02/16 12:12 White Blood Count 0.97 K/uL (4.8-10.8) Red Blood Count 2.62 M/uL (4.7-6.1) Hemoglobin 7.2 g/dL (14.0-18.0) Hematocrit 23.2 % (42-52) Mean Corpuscular Volume 88.5 fL (80-100) Mean Corpuscular Hemoglobin 27.5 pg (25-34) Mean Corpuscular Hemoglobin Concent 31.0 g/dl (32-36) Platelet Count 126 K/uL (130-400) Mean Platelet Volume 9.6 fL (7.4-10.4) Neutrophils (%) (Auto) 56.7 % Lymphocytes (%) (Auto) 32.0 % Monocytes (%) (Auto) 9.3 % Eosinophils (%) (Auto) 1.0 % Basophils (%) (Auto) 1.0 % Neutrophils # (Auto) 0.55 K/uL (1.4-6.5) Lymphocytes # (Auto) 0.31 K/uL (1.2-3.4) Monocytes # (Auto) 0.09 K/uL (0.11-0.59) Eosinophils # (Auto) 0.01 K/uL (0-0.5) Basophils # (Auto) 0.01 K/uL (0-0.2) RDW Standard Deviation 58.4 fL (36.4-46.3) RDW Coefficient of Variation 18.0 % (11.5-14.5) Immature Granulocyte % (Auto) 0.0 % Immature Granulocyte # (Auto) 0.00 K/uL (0.00-0.02) Large Platelets 2+ Giant Platelets 1+ Poikilocytosis PRESENT Anisocytosis PRESENT Prothrombin Time 16.9 SECONDS (9.0-12.0) Prothromb Time International Ratio 1.6 (0.9-1.1) Activated Partial Thromboplast Time 36.4 SECONDS (21.0-31.0) Partial Thromboplastin Ratio 1.4 Sodium Level 136 mmol/L (136-145) Potassium Level 3.6 mmol/L (3.5-5.1) Chloride Level 100 mmol/L (98-107) Carbon Dioxide Level 26 mmol/L (21-32) Anion Gap 10.0 mmol/L (3-11) Blood Urea Nitrogen 11 mg/dl (7-18) Creatinine 0.96 mg/dl (0.60-1.40) Est Creatinine Clear Calc Drug Dose 109.2 ml/min Estimated GFR () 128.6 Estimated GFR (Non- 111.0 BUN/Creatinine Ratio 11.4 (10-20) Random Glucose 88 mg/dl (70-99) Calcium Level 7.4 mg/dl (8.5-10.1) Total Bilirubin 1.5 mg/dl (0.2-1) Aspartate Amino Transf (AST/SGOT) 98 U/L (15-37) Alanine Aminotransferase (ALT/SGPT) 93 U/L (12-78) Alkaline Phosphatase 48 U/L (45-117) Total Protein 5.7 gm/dl (6.4-8.2) Albumin 2.4 gm/dl (3.4-5.0) Globulin 3.3 gm/dl (2.5-4.0) Albumin/Globulin Ratio 0.7 (0.9-2) Iron Level 44 mcg/dl (35-175) Total Iron Binding Capacity 145 mcg/dl (250-450) Ferritin 4428.6 ng/ml (8.0-388.0) Vitamin B12 Level 299 pg/mL (211-911) Folate 15.27 ng/mL (>5.38) Thyroid Stimulating Hormone (TSH) 2.440 uIu/ml (0.300-4.500) HIV (1&2) Ab and P24 Ag, 4th Gener NEG (NEG) Micro Results Date/Time Source Procedure Growth Status 11/02/16 12:12 Blood Acid Fast Stain Pending Ordered 11/02/16 12:12 Blood Mycobacterial Culture Pending Ordered 11/01/16 19:45 Blood Blood Culture Pending Received 11/01/16 19:30 Blood Blood Culture Pending Received Assessment & Plan Assessment 21 year old male with neutropenic fever, started on broad-spectrum antibiotics ( vancomycin + Levaquin + Zosyn) Empiric 48hr dosing for all 3 at this point so will need to re-evaluate if they will be continued past 48 hours Plan Vancomycin IV * Loading dose: 1600 mg (25 mg/kg) * Maintenance dose: 1000 mg IV (15 mg/kg) every 8 hours * Goal trough level for neutropenic fever : 15 to 20 mcg/mL * Trough level ordered for 11/03/16 prior to the 10 am dose Piperacillin/tazobactam * 4.5 g bolus administered over 30 minutes (was given last evening), then 3.375 g IV extended infusion every 8 hours for CrCl greater than 20 mL/min OR every 12 hours for CrCl 20 mL/min or less and dialysis. Pharmacy will continue to follow and will adjust dose/frequency as necessary. Thank you.
[2016-11-02] MEDS: DOXYCYCLINE HYCLATE 100 MG CAP PO SCH ×2 (14:21→20:00)
[2016-11-02] MEDS: VANCOMYCIN INJ 1,000 MG in SODIUM CHLORIDE 0.9% 250ML 250 ML IV SCH (18:26)
--- NOTE | 2016-11-02 18:53 | INFECT. DISEASE CONSULTATION ---
DATE OF CONSULTATION: 11/02/2016 REQUESTING PHYSICIAN: Dr. Gibbs. HISTORY OF PRESENT ILLNESS: This is a 21-year-old gentleman who was admitted with lower extremity edema which was worsening as an outpatient. He was found to be febrile upon admission to the hospital with pancytopenia. However, according to ER records, he was unaware of his fever. He currently is a student at [employer] and also is employed by the [employer]. He is of descent and is permanently located in [place] at this time. On my examination, he is mailing on the phone with his mother who I have spoken to regarding his illness. Because of his neutropenia and fevers he was placed on broad-spectrum antibiotics and he appears to be tolerating these well. He is stating to his mother that he does feel that he should be prepared for discharge within the next day. He did have a T-max of 39.5. His current temperature is 37.9. He is comfortable. Per the H&P, there is no family history of any known blood disorders or any other significant family history that the patient is aware of. The patient does not report any past medical or surgical history. There is no known family history. SOCIAL HISTORY: Negative for tobacco use and drug use. He drinks occasionally. He is a student at [employer]. Remaining social history as above. ALLERGIES: No known drug allergies. CURRENT MEDICATIONS: Include vancomycin, Zosyn, levofloxacin, Tylenol, Maalox, milk of magnesia and Zofran. PHYSICAL EXAMINATION: VITAL SIGNS: Current temperature is 37.9, T-max was 39.5 on admission to the hospital; pulse 100, respiratory rate 18, blood pressure is 111/62, oxygen saturation is 100% on room air. GENERAL: The patient is awake, alert and oriented x3, he does not appear to be in any distress. HEENT: Mucous membranes are moist. Extraocular muscles are intact. There is no jaundice. He is moving all extremities without difficulty. SKIN: With rash. There is no discoloration. I am unable to perform the remaining physical exam as the patient prefers to discuss his case with family members. LABORATORY STUDIES: CBC today reveals a white blood cell count of 0.97, hemoglobin 7.2, hematocrit 23.2 and platelets are 126. Yesterday, white blood cell count was 1.27 with an ANC of 680. Chemistry panel was most recently done this morning, sodium 136, potassium 3.6, chloride 100, bicarbonate 26, BUN is 11, creatinine 0.9, glucose is 88. Iron studies are abnormal, ferritin level is 4428, total bilirubin is 1.5, AST 98, ALT 93. CRP is mildly elevated at 1.5. LFTs have improved since admission. Initially AST was 121, ALT was 110. Urinalysis is unremarkable. Lyme titers are negative, hepatitis B and C screens are negative. Parvovirus is pending. Flu swab is negative. HIV is negative. Glascock is negative. CMV and Shameka-Ibanez are pending. Blood cultures are pending. Abdominal ultrasound shows moderate hepatosplenomegaly with small splenic lesions and possible small hepatic lesions. A 4 cm splenic mass may reflect portion of the spleen. There is abdominal lymphadenopathy, infectious processes is favored, Lymphoma leukemia could appear the same. Chest x-ray shows clear lungs and no acute process. ASSESSMENT AND PLAN: 1. Febrile neutropenia, certainly this could be an infectious process, parvovirus certainly could be likely. Lyme is pending. 05:57 will be checked as well, although there is no known history of recent tick bite. However, the patient has been here recently as a student and I will add doxycycline to our current antibiotics. Blood cultures are pending. I will follow the results of those. A CAT scan of the abdomen and pelvis are pending as well and I will follow the results of those. If there is a large splenic lesion, biopsy may be indicated. A blood culture for AFB will be done as well, and QuantiFERON will be checked, a toxoplasmosis antibody will be checked as well as this can cause an acute mononucleosis like syndrome. We will follow along with you. Thank you for this consultation. YE
[2016-11-03] VITALS (16 sets, daily range): BP systolic 89–128; BP diastolic 48–80; PULSE 85–119; TEMP 36.4–39; O2SAT 96–100
[2016-11-03] MEDS: PIPERACILL/TAZOBAC IV 3.375 GM in DEXTROSE 5% 100ML IV SCH ×3 (02:12→18:02)
[2016-11-03] MEDS: VANCOMYCIN INJ 1,000 MG in SODIUM CHLORIDE 0.9% 250ML 250 ML IV SCH ×3 (02:12→18:02)
[2016-11-03 07:00] LABS: INR 1.5 (0.9-1.1); PARTIAL THROMBOPLASTIN RATIO 1.4; PROTHROMBIN TIME (PATIENT) 16.4 SECONDS (9.0-12.0)
[2016-11-03 07:23] LABS: BUN/CREATININE RATIO 11.2 (10-20); CALCIUM 7.1 mg/dl (8.5-10.1); CREATININE 0.77 mg/dl (0.60-1.40)
[2016-11-03 07:26] LABS: ALB/GLOB RATIO 0.8 (0.9-2)
[2016-11-03 07:28] LABS: MEAN CORPUSCULAR HGB CONC 31.4 g/dl (32-36); MEAN PLATELET VOLUME 9.2 fL (7.4-10.4); PLATELET COUNT 108 K/uL (130-400)
[2016-11-03 07:42] LABS: HEMATOCRIT 20.7 % (42-52); MEAN CELL VOLUME 88.1 fL (80-100); MEAN CORPUSCULAR HEMOGLOBIN 27.7 pg (25-34); RED BLOOD COUNT 2.35 M/uL (4.7-6.1); WHITE BLOOD COUNT 0.84 K/uL (4.8-10.8)
[2016-11-03 07:45] LABS: ANISOCYTOSIS PRESENT; BASO % 1.2 %; BASO ABS # 0.01 K/uL (0-0.2); COMPLETE YES; EOS % 1.2 %; LYMPH % 35.7 %; MONO % 9.5 %; NEUT % 52.4 %; POIKILOCYTOSIS PRESENT; STOMATOCYTE 2+; TEAR DROP CELLS 1+
[2016-11-03] MEDS: DOXYCYCLINE HYCLATE 100 MG CAP PO SCH ×2 (07:55→19:53)
[2016-11-03] MEDS: ACETAMINOPHEN 325 MG TAB PO PRN ×4 (07:56→23:24)
[2016-11-03] MEDS ORDERED: VANCOMYCIN TROUGH SCH (09:30)
[2016-11-03] MEDS ORDERED: ACYCLOVIR SOD INJ 500 MG in DEXTROSE 5% 100ML 100 ML IV SCH (11:00)
--- NOTE | 2016-11-03 12:02 | HEME/ONC PROGRESS NOTE ---
DATE: 11/03/2016 DATE: 11/03/2016. DIAGNOSES: 1. Pancytopenia. 2. Hyperferritinemia. 3. Elevated liver transaminases. 4. Edema bilateral extremities. HOSPITAL COURSE: Carson is a pleasant 21-year-old gentleman I met via consultation yesterday with subacute onset bilateral lower extremity edema and pancytopenia. Viral titers are pending. He does admit to me today he did travel to [facility] last summer. I also spoke to his father who plans on flying to [employer] from [place], [place]. He continues to be relatively asymptomatic with the exception of intermittent low-grade fever. I spoke to the primary team today and collectively we will continue to observe him and provide transfusional support. I have also suggested initiating granulocyte colony stimulating growth factor. PHYSICAL EXAMINATION: GENERAL: He is in no acute distress. VITAL SIGNS: Temperature 36.8, pulse 107, respiratory rate 16, blood pressure 95/55. SKIN: Without rash or lesion. HEAD, EYES, EARS, NOSE, AND THROAT: Oral mucosa without erythema or ulceration. NECK: Supple. The lymph node previously palpated has gone down in size within the right axilla. HEART: Regular rate and rhythm. LUNGS: Clear to auscultation bilaterally. ABDOMEN: Soft, nontender. Palpable hepatosplenomegaly. EXTREMITIES: Trace peripheral edema bilaterally. NEUROLOGIC EXAMINATION: Grossly intact. LABORATORY DATA: WBC count 840, hemoglobin 6.5, platelet count 108,000, absolute neutrophil count 440. Chemistries -- sodium 136, potassium 4.0, chloride 103, carbon dioxide 25, BUN 9, creatinine 0.77. Ferritin 4,428. Total bilirubin down slightly to 1.4. AST down slightly from 98 to 81, total protein 5.1, albumin 2.2. IMPRESSIONS: 1. Neutropenic fever. 2. Pancytopenia. 3. Hypoalbuminemia. 4. Elevated liver transaminases. 5. Lymphadenopathy. ASSESSMENT AND PLAN: Again, visited with Carson at bedside today. Amazingly seems to be doing well clinically with the exception of intermittent low-grade fever. Infectious disease is on consult; however, unfortunately return of titer results is slow in coming. I still believe an underlying viral syndrome is the running diagnosis, but certainly lymphoproliferative process is not exclusively ruled out. Recommend transfusional support to begin with administration of 2 units packed RBCs. We will also incorporate Neupogen 480 mcg subQ daily x2. The patient's father is flying in from [facility]. If clinically possible would hold off on transfer unless he deteriorates rapidly. I will continue to follow him closely during his hospital stay. I have nothing further to add at this point. Thank you again for allowing me to participate in the care of this very pleasant gentleman.
--- NOTE | 2016-11-03 12:18 | Family Medicine Progress Note ---
Progress Note Date of Service Nov 03, 2016. Subjective Pt evaluation today including: conversation w/ patient, conversation w/ family , physical exam, chart review, lab review, review of studies, conversation w/ digital marketing consultant Pain: 0/10 PO Intake: WNL Voiding: no voiding problems improvement in the LE edema, he continues to feel well with minimal complaints We also discussed the patient's ongoing and worsening pancytopenia and how the patient would benefit from a tertiary center which was discussed with hem/ onc as well. As the father is coming tonight from [place] and if clinically possible we will hope to keep him until tomorrow Constitutional: No fever Eyes: No worsening of vision ENT: No hearing loss Respiratory: No cough, No sputum, No wheezing, No shortness of breath, No dyspnea on exertion Cardiovascular: No chest pain Abdomen: No pain, No nausea, No vomiting, No diarrhea, No constipation Musculoskeletal: + swelling (bilat lE edema), No joint pain, No muscle pain Neurologic: No weakness, No balance problems Psychiatric: No depression symptoms Endo: No fatigue Skin: No rash Medications Medications Administered Medications (Trade) Dose Ordered Sig/Ahsan Route Start Time Stop Time Status Last Admin Dose Admin Sodium Chloride 1,000 ml @ 999 mls/hr Q1H1M STAT IV 11/01/16 19:19 11/01/16 20:19 DC 11/01/16 19:19 999 MLS/HR Acetaminophen (Tylenol Tab) 1,000 mg NOW STAT PO 11/01/16 19:19 11/01/16 19:21 DC 11/01/16 19:31 1,000 MG Piperacillin Sod/ Tazobactam Sod (Zosyn Iv) 4.5 gm NOW STAT IV 11/01/16 21:23 11/01/16 21:24 DC 11/01/16 22:06 4.5 GM Acetaminophen (Tylenol Tab) 650 mg Q4H PRN PO 11/01/16 22:00 12/01/16 21:59 11/03/16 07:56 650 MG Piperacillin Sod/ Tazobactam Sod 4.5 gm/Dextrose 120 ml @ 30 mls/hr Q8H IV 11/02/16 02:00 11/02/16 09:10 DC 11/02/16 01:46 30 MLS/HR Levofloxacin 750 mg/Prmx 150 ml @ 100 mls/hr Q24H IV 11/01/16 23:00 11/03/16 22:59 11/02/16 22:27 100 MLS/HR Vancomycin HCl 1600 mg/Sodium Chloride 532 ml @ 200 mls/hr TODAY@0930 ONCE IV 11/02/16 09:30 11/02/16 12:09 DC 11/02/16 09:40 200 MLS/HR Piperacillin Sod/ Tazobactam Sod 3.375 gm/Dextrose 115 ml @ 28.75 mls/ hr Q8@0200,1000,1800 IV 11/02/16 10:00 11/04/16 01:59 11/03/16 09:25 28.75 MLS/HR Vancomycin HCl 1000 mg/Sodium Chloride 270 ml @ 125 mls/hr Q8@0200,1000,1800 IV 11/02/16 18:00 11/04/16 09:59 11/03/16 09:24 125 MLS/HR Doxycycline Hyclate (Vibramycin Cap) 100 mg BID PO 11/02/16 13:00 11/12/16 12:59 11/03/16 07:55 100 MG Acyclovir Sodium 500 mg/Dextrose 110 ml @ 110 mls/hr Q8H IV 11/03/16 11:00 11/05/16 10:59 11/03/16 11:33 110 MLS/HR Objective Vital Signs Date Time Temp Pulse Resp B/P (MAP) Pulse Ox O2 Delivery O2 Flow Rate FiO2 11/03/16 09:05 36.8 107 16 95/55 (68) 11/03/16 08:00 100 Room Air 11/03/16 07:51 39.0 119 18 98/48 (65) 97 Room Air 11/03/16 00:10 36.9 101 20 97/61 (73) 100 Room Air 11/02/16 23:59 Room Air 11/02/16 20:55 38.3 11/02/16 18:40 37.8 11/02/16 16:00 100 Room Air 11/02/16 15:35 36.8 97 18 110/71 (84) 96 Room Air Physical Exam General Appearance: no apparent distress Eyes: normal inspection ENT: normal ENT inspection Neck: supple Respiratory/Chest: normal breath sounds, no respiratory distress, no accessory muscle use Cardiovascular: regular rate, rhythm, no murmur Abdomen: normal bowel sounds, non tender, soft Extremities: normal range of motion, non-tender, normal inspection, no calf tenderness, + pedal edema (+2 pedal edema) Neurologic/Psychiatric: alert, normal mood/affect, oriented x 3 Skin: normal color, warm/dry, no rash Lymphatic: no adenopathy Laboratory Results Results Past 24 Hours Test 11/02/16 14:55 11/03/16 06:27 11/03/16 09:22 11/03/16 09:59 Range/Units White Blood Count 0.84 4.8-10.8 K/uL Red Blood Count 2.35 4.7-6.1 M/uL Hemoglobin 6.5 14.0-18.0 g/dL Hematocrit 20.7 42-52 % Mean Corpuscular Volume 88.1 80-100 fL Mean Corpuscular Hemoglobin 27.7 25-34 pg Mean Corpuscular Hemoglobin Concent 31.4 32-36 g/dl Platelet Count 108 130-400 K/uL Mean Platelet Volume 9.2 7.4-10.4 fL Neutrophils (%) (Auto) 52.4 % Lymphocytes (%) (Auto) 35.7 % Monocytes (%) (Auto) 9.5 % Eosinophils (%) (Auto) 1.2 % Basophils (%) (Auto) 1.2 % Neutrophils # (Auto) 0.44 1.4-6.5 K/uL Lymphocytes # (Auto) 0.30 1.2-3.4 K/uL Monocytes # (Auto) 0.08 0.11-0.59 K/uL Eosinophils # (Auto) 0.01 0-0.5 K/uL Basophils # (Auto) 0.01 0-0.2 K/uL RDW Standard Deviation 59.0 36.4-46.3 fL RDW Coefficient of Variation 18.1 11.5-14.5 % Immature Granulocyte % (Auto) 0.0 % Immature Granulocyte # (Auto) 0.00 0.00-0.02 K/uL Poikilocytosis PRESENT Anisocytosis PRESENT Tear Drop Cells 1+ Stomatocytes 2+ Prothrombin Time 16.4 9.0-12.0 SECONDS Prothromb Time International Ratio 1.5 0.9-1.1 Activated Partial Thromboplast Time 37.3 21.0-31.0 SECONDS Partial Thromboplastin Ratio 1.4 Sodium Level 136 136-145 mmol/L Potassium Level 4.0 3.5-5.1 mmol/L Chloride Level 103 98-107 mmol/L Carbon Dioxide Level 25 21-32 mmol/L Anion Gap 8.0 3-11 mmol/L Blood Urea Nitrogen 9 7-18 mg/dl Creatinine 0.77 0.60-1.40 mg/dl Est Creatinine Clear Calc Drug Dose 136.1 ml/min Estimated GFR () 148.2 Estimated GFR (Non- 127.9 BUN/Creatinine Ratio 11.2 10-20 Random Glucose 88 70-99 mg/dl Calcium Level 7.1 8.5-10.1 mg/dl Total Bilirubin 1.4 0.2-1 mg/dl Aspartate Amino Transf (AST/SGOT) 81 15-37 U/L Alanine Aminotransferase (ALT/SGPT) 77 12-78 U/L Alkaline Phosphatase 49 45-117 U/L Total Protein 5.1 6.4-8.2 gm/dl Albumin 2.2 3.4-5.0 gm/dl Globulin 2.9 2.5-4.0 gm/dl Albumin/Globulin Ratio 0.8 0.9-2 Vancomycin Level Trough 13.4 SEE COMMENT mcg/ml Test 11/03/16 10:06 Range/Units Microbiology Results 11/02/16 Acid Fast Stain, Received Pending 11/02/16 Mycobacterial Culture, Received Pending Assessment and Plan 21 year old male presenting with new onset lower extremity edema bilaterally x 2 days. The patient has ongoing neutropenia and anemia and concerning. He would benefit from tertiary center however if clinically able to will wait until tomorrow so father can arrive. Pancytopenia - DDx: Hematological malignancy vs BM suppression 2/2 self-limited viral infection - Keep on Neutropenic precautions - Empiric antibiotics: Zosyn, Levaquin and Vancomycin - Will initiate Neupogen and transfuse 2 unit PRC irradiated - Hematological evaluation Peripheral smear - essentially pancytopenic with no overt process; elevated bilirubin may suggest hemolysis Elevated reticulocyte count suggesting increasing BM output and expected elevated RDW Abdominal US suggests liver and splenic lesions: these favor infective process, though malignancy process could not be excluded--> CT scan revealed similar findings and malignancy could not be excluded -- ID recommends biopsy of these lesions - Will review further. - Infection Panel evaluation CMV, Parvovirus and EBV serologies are pending AFB culture and gold interferon test pending. Toxoplasma antibody pending HIV is negative - Other infection: Lyme negative, influenza negative - Rheumatological evaluation AMADEO pending ESR normal - Nutritional Evaluation Iron studies: normal iron, elevated ferritin and TIBC Normal B12 and Folate - Endocrine Normal TSH - Toxic: pending lead level Hyperferritinemia - Work up as above Elevated LFT; hypoalbuminemia and Coag - Liver U/S notes innumerable hepatic and splenic lesions as well as CT abd - INR continues to remain slightly elevated - Mild transaminitis resolving - Hepatitis panel results pending Bilateral pedal edema - ? sec to hypoalbuminemia. - No protein in urine - Check prealbumin DVT Prophylaxis - SCD - Physiologically anticoagulated at this time; no pharmacological prophylaxis Disposition - Med/Surg - Needs to remain in hospital due to neutropenia and need for CBC monitoring and neutropenic precautions, pending transfer to tertiary center Continued [facility] stay due to: fever, other Discharge planning: uncertain Reviewed: Pt Seen/Exam by Me History denies any concerns leg edema improved Constitutional: denies: fever Respiratory: negative: short of breath Cardiovascular: denies chest pain Gastrointestinal/Abdominal: negative: abdominal pain General Appearance: no apparent distress Respiratory: lungs clear, no respiratory distress Cardiovascular: regular rate, rhythm Gastrointestinal: normal bowel sounds, non tender, soft Neurologic/Psychiatric: alert, oriented x 3 Skin Characteristics: warm/dry Comments lymphadenopathy on left axilla Assessment/Plan I have reviewed the medical record and performed a history and physical examination of this patient today. I have discussed the case with Dr Jain. The above note reflects my findings, conclusions, and recommendations.
[2016-11-03] MEDS: FILGRASTIM 480 MCG/1.6 ML VIAL SC SCH (12:20)
--- NOTE | 2016-11-03 16:15 | Pharmacy Progress Note ---
Pharmacy Abx Dose Progress Nt Date of Service Nov 03, 2016. Pharmacy Dosing Scope The patient is currently receiving the following antimicrobial agents per Pharmacy consult: Vancomycin & Zosyn IV. Pt is also ordered Acyclovir IV, Levaquin, & Doxycycline. Objective Height (Feet): 5 Height (Inches): 9.00 Weight (Kilograms): 64.500 Vital Signs (Past 12Hrs) Vital Signs Past 12 Hours Date Time Temp Pulse Resp B/P (MAP) Pulse Ox O2 Delivery O2 Flow Rate FiO2 11/03/16 15:57 36.7 93 18 103/60 (74) 99 Room Air 11/03/16 15:55 36.8 92 16 97/61 100 11/03/16 14:45 36.9 92 16 89/54 99 11/03/16 14:30 36.9 96 16 102/58 99 11/03/16 14:14 36.8 100 18 92/56 100 11/03/16 13:45 36.4 94 18 90/51 11/03/16 09:05 36.8 107 16 95/55 (68) 11/03/16 08:00 100 Room Air 11/03/16 07:51 39.0 119 18 98/48 (65) 97 Room Air Lab Results (24Hrs) Test 11/03/16 06:27 11/03/16 09:22 11/03/16 09:59 11/03/16 10:06 White Blood Count 0.84 K/uL (4.8-10.8) Red Blood Count 2.35 M/uL (4.7-6.1) Hemoglobin 6.5 g/dL (14.0-18.0) Hematocrit 20.7 % (42-52) Mean Corpuscular Volume 88.1 fL (80-100) Mean Corpuscular Hemoglobin 27.7 pg (25-34) Mean Corpuscular Hemoglobin Concent 31.4 g/dl (32-36) Platelet Count 108 K/uL (130-400) Mean Platelet Volume 9.2 fL (7.4-10.4) Neutrophils (%) (Auto) 52.4 % Lymphocytes (%) (Auto) 35.7 % Monocytes (%) (Auto) 9.5 % Eosinophils (%) (Auto) 1.2 % Basophils (%) (Auto) 1.2 % Neutrophils # (Auto) 0.44 K/uL (1.4-6.5) Lymphocytes # (Auto) 0.30 K/uL (1.2-3.4) Monocytes # (Auto) 0.08 K/uL (0.11-0.59) Eosinophils # (Auto) 0.01 K/uL (0-0.5) Basophils # (Auto) 0.01 K/uL (0-0.2) RDW Standard Deviation 59.0 fL (36.4-46.3) RDW Coefficient of Variation 18.1 % (11.5-14.5) Immature Granulocyte % (Auto) 0.0 % Immature Granulocyte # (Auto) 0.00 K/uL (0.00-0.02) Poikilocytosis PRESENT Anisocytosis PRESENT Tear Drop Cells 1+ Stomatocytes 2+ Prothrombin Time 16.4 SECONDS (9.0-12.0) Prothromb Time International Ratio 1.5 (0.9-1.1) Activated Partial Thromboplast Time 37.3 SECONDS (21.0-31.0) Partial Thromboplastin Ratio 1.4 Sodium Level 136 mmol/L (136-145) Potassium Level 4.0 mmol/L (3.5-5.1) Chloride Level 103 mmol/L (98-107) Carbon Dioxide Level 25 mmol/L (21-32) Anion Gap 8.0 mmol/L (3-11) Blood Urea Nitrogen 9 mg/dl (7-18) Creatinine 0.77 mg/dl (0.60-1.40) Est Creatinine Clear Calc Drug Dose 136.1 ml/min Estimated GFR () 148.2 Estimated GFR (Non- 127.9 BUN/Creatinine Ratio 11.2 (10-20) Random Glucose 88 mg/dl (70-99) Calcium Level 7.1 mg/dl (8.5-10.1) Total Bilirubin 1.4 mg/dl (0.2-1) Aspartate Amino Transf (AST/SGOT) 81 U/L (15-37) Alanine Aminotransferase (ALT/SGPT) 77 U/L (12-78) Alkaline Phosphatase 49 U/L (45-117) Total Protein 5.1 gm/dl (6.4-8.2) Albumin 2.2 gm/dl (3.4-5.0) Globulin 2.9 gm/dl (2.5-4.0) Albumin/Globulin Ratio 0.8 (0.9-2) Vancomycin Level Trough 13.4 mcg/ml (SEE COMMENT) Test 11/03/16 15:00 Micro Results Date/Time Source Procedure Growth Status 11/02/16 14:55 Blood Acid Fast Stain Pending Received 11/02/16 14:55 Blood Mycobacterial Culture Pending Received 11/01/16 19:45 Blood Blood Culture - Preliminary NO GROWTH TO DATE. Resulted 11/01/16 19:30 Blood Blood Culture - Preliminary NO GROWTH TO DATE. Resulted Assessment & Plan Assessment 21 year old male receiving Vancomycin, Acyclovir, Levaquin, Zosyn, and Doxycycline for treatment of neutropenia/fever of unknown source. Day # 2 of antimicrobial therapy - abx indication is "empiric" but per provider pt to receive 10 day course of abx unless otherwise specified. Plan Vancomycin IV * Trough level of 13.4 mcg/mL is near-therapeutic/slightly subtherapeutic. However, this level was drawn prior to steady state. Likely, vancomycin will accumulate with repeated dosing. * Continue dose of 1,000 mg IV every 8 hours * Goal trough level for fever/neutropenia : 15 to 20 mcg/mL * Trough or random level ordered for: 11/05/16 @ 0200 Piperacillin/tazobactam * Continue 3.375 g IV extended infusion every 8 hours for CrCl greater than 20 mL/min Abx not per pharmacy consult: * Acyclovir 700mg (10mg/kg IBW) IV Q8hrs * Levaquin 750mg IV Q24hrs * Doxycycline 100mg PO BID Pharmacy will continue to follow and will adjust dose/frequency as necessary. Thank you.
[2016-11-03] MEDS: ACYCLOVIR SOD IV SCH (19:54)
[2016-11-03] MEDS: DEXTROSE 5% IV SCH (19:54)
[2016-11-03 20:00] LABS: HEMATOCRIT 30.4 % (42-52)
[2016-11-03 20:04] LABS: IMMUNOGLOBULN M 31.6 mg/dL (40-230)
[2016-11-03] MEDS: LEVOFLOXACIN / D5W 750 MG in PREMIXED IN D5W 150 ML IV SCH (23:24)
[2016-11-04 00:03] VITALS: BP 94/57; PULSE 101; TEMP 37.6; O2SAT 99
[2016-11-04 00:39] VITALS: O2SAT 100
[2016-11-04] MEDS: VANCOMYCIN INJ 1,000 MG in SODIUM CHLORIDE 0.9% 250ML 250 ML IV SCH ×3 (01:41→19:23)
[2016-11-04] MEDS: PIPERACILL/TAZOBAC IV 3.375 GM in DEXTROSE 5% 100ML IV SCH ×3 (01:41→19:23)
[2016-11-04] MEDS: ACYCLOVIR SOD IV SCH ×3 (03:20→20:28)
[2016-11-04] MEDS: DEXTROSE 5% IV SCH ×3 (03:20→20:28)
[2016-11-04 05:52] LABS: HEMATOCRIT 23.3 % (42-52); MEAN CELL VOLUME 86.9 fL (80-100); MEAN CORPUSCULAR HEMOGLOBIN 30.2 pg (25-34); MEAN CORPUSCULAR HGB CONC 34.8 g/dl (32-36); RED BLOOD COUNT 2.68 M/uL (4.7-6.1); WHITE BLOOD COUNT 2.53 K/uL (4.8-10.8)
[2016-11-04 06:20] LABS: BUN/CREATININE RATIO 10.1 (10-20); CREATININE 0.94 mg/dl (0.60-1.40); POTASSIUM 4.3 mmol/L (3.5-5.1)
[2016-11-04 06:28] LABS: ALB/GLOB RATIO 0.8 (0.9-2)
[2016-11-04 07:14] LABS: MEAN PLATELET VOLUME 9.9 fL (7.4-10.4); PLATELET COUNT 94 K/uL (130-400)
[2016-11-04 07:15] LABS: ANISOCYTOSIS PRESENT; BASO % 0.4 %; BASO ABS # 0.01 K/uL (0-0.2); COMPLETE YES; EOS % 0.4 %; IG% 0.8 %; LYMPH % 20.9 %; LYMPH ABS # 0.53 K/uL (1.2-3.4); NEUT % 73.5 %; OVALOCYTES 1+; TEAR DROP CELLS OCCASIONAL
[2016-11-04] MEDS: FILGRASTIM 480 MCG/1.6 ML VIAL SC SCH (07:48)
[2016-11-04] MEDS: DOXYCYCLINE HYCLATE 100 MG CAP PO SCH ×2 (07:48→20:25)
[2016-11-04 08:00] VITALS: O2SAT 100
[2016-11-04 08:02] VITALS: BP 103/58; PULSE 113; TEMP 38.9; O2SAT 96
--- NOTE | 2016-11-04 09:04 | Progress Note ---
Subjective Date of Service: Nov 04, 2016. Subjective Pt evaluation today including: conversation w/ patient, physical exam, chart review, lab review pt seen in followup, feeling well. has no complaints. wbc continued to drop, h/ h also. was given g csf and wbc increased to 2.5 today, ANC >1000. remains on multiple abx for neutropenic fever. blood cultures negative to date. Isolated fever last night, min shakes assoc with this. He is overall feeling better. tolerating abx, eating well. Denies abd pain, no n/v/d. no cp, no sob, no cough. Born in [place], has traveled to [facility] with family, last trip one year ago for 2 weeks. No known TB contacts. no previous testing, IGRA pending. No other travel, has been student for 3 years. No known tick bites/rashes. serologies pending, lyme screen negative, on doxy emperically. ct chest abd/ pelvis reviewed, multiple nodules in liver and spleen, axillary lymph nodes noted as well. No complaints this am. remaining ros reviewed. LFTS improving, counts improving but was given g csf. cultures negative to date. Fever curve improving. Problem List Medical Problems: (1) Elevated liver enzymes Status: Acute (2) Swelling of lower extremity Status: Acute Objective Vital Signs Date Time Temp Pulse Resp B/P (MAP) Pulse Ox O2 Delivery O2 Flow Rate FiO2 11/04/16 08:02 38.9 113 16 103/58 (73) 96 Room Air 11/04/16 00:39 100 Room Air 11/04/16 00:03 37.6 101 18 94/57 (69) 99 Room Air 11/03/16 20:35 100 Room Air 11/03/16 19:38 36.8 101 18 128/80 (96) 96 Room Air 11/03/16 17:00 36.8 87 16 99/64 100 11/03/16 16:35 36.7 91 18 103/64 97 11/03/16 16:20 36.7 85 18 108/70 100 11/03/16 16:00 100 Room Air 11/03/16 15:57 36.7 93 18 103/60 (74) 99 Room Air 11/03/16 15:55 36.8 92 16 97/61 100 11/03/16 14:45 36.9 92 16 89/54 99 11/03/16 14:30 36.9 96 16 102/58 99 11/03/16 14:14 36.8 100 18 92/56 100 11/03/16 13:45 36.4 94 18 90/51 11/03/16 09:05 36.8 107 16 95/55 (68) Physical Exam General Appearance: WD/WN, no apparent distress Eyes: normal inspection, EOMI ENT: pharynx normal Neck: supple Respiratory/Chest: lungs clear, normal breath sounds, no respiratory distress Cardiovascular: regular rate, rhythm, no edema Abdomen: non tender, soft Extremities: non-tender, normal inspection, no pedal edema Neurologic/Psychiatric: alert, oriented x 3 Skin: normal color Laboratory Results Item Value Date Time Blood Culture - Preliminary Resulted 11/01/161944 Blood NO GROWTH TO DATE. Blood Culture - Preliminary Resulted 11/01/161929 Blood NO GROWTH TO DATE. Last 24 Hours Test 11/03/16 09:22 11/03/16 19:02 11/04/16 05:22 Vancomycin Level Trough 13.4 mcg/ml Hemoglobin 9.9 g/dL 8.1 g/dL Hematocrit 30.4 % 23.3 % Prealbumin 5.1 mg/dl Immunoglobulin G 1500.0 mg/dL Immunoglobulin A 188.0 mg/dL Immunoglobulin M 31.6 mg/dL White Blood Count 2.53 K/uL Red Blood Count 2.68 M/uL Mean Corpuscular Volume 86.9 fL Mean Corpuscular Hemoglobin 30.2 pg Mean Corpuscular Hemoglobin Concent 34.8 g/dl Platelet Count 94 K/uL Mean Platelet Volume 9.9 fL Neutrophils (%) (Auto) 73.5 % Lymphocytes (%) (Auto) 20.9 % Monocytes (%) (Auto) 4.0 % Eosinophils (%) (Auto) 0.4 % Basophils (%) (Auto) 0.4 % Neutrophils # (Auto) 1.86 K/uL Lymphocytes # (Auto) 0.53 K/uL Monocytes # (Auto) 0.10 K/uL Eosinophils # (Auto) 0.01 K/uL Basophils # (Auto) 0.01 K/uL RDW Standard Deviation 57.0 fL RDW Coefficient of Variation 18.0 % Immature Granulocyte % (Auto) 0.8 % Immature Granulocyte # (Auto) 0.02 K/uL Anisocytosis PRESENT Tear Drop Cells OCCASIONAL Ovalocytes 1+ Sodium Level 136 mmol/L Potassium Level 4.3 mmol/L Chloride Level 103 mmol/L Carbon Dioxide Level 27 mmol/L Anion Gap 6.0 mmol/L Blood Urea Nitrogen 10 mg/dl Creatinine 0.94 mg/dl Est Creatinine Clear Calc Drug Dose 111.5 ml/min Estimated GFR () 131.9 Estimated GFR (Non- 113.8 BUN/Creatinine Ratio 10.1 Random Glucose 92 mg/dl Calcium Level 7.0 mg/dl Total Bilirubin 2.2 mg/dl Aspartate Amino Transf (AST/SGOT) 88 U/L Alanine Aminotransferase (ALT/SGPT) 72 U/L Alkaline Phosphatase 64 U/L Total Protein 4.9 gm/dl Albumin 2.1 gm/dl Globulin 2.8 gm/dl Albumin/Globulin Ratio 0.8 Assessment and Plan (1) Neutropenic fever Assessment & Plan: neutropenia resolved. will continue IV abx for additional 24 hours, if cultures remain negative and wbc remains elevated, will stop. will continue doxy pending tick borne serologies. IGRA pending, parvo pending. lyme negative, hepatitis negative. No clear risk for TB. AFB blood cultures pending as well. Unfortunately, may take time to receive results from these tests. Blood born malignancy also to be considered, ? biopsy of axillary nodes, if so would send for routine, afb, fungal culture, as well as cytology. will continue to follow. (2) Elevated liver enzymes Continued [facility] stay due to: fever, other Discharge planning: uncertain
[2016-11-04] MEDS: ACETAMINOPHEN 325 MG TAB PO PRN ×2 (09:38→23:42)
--- NOTE | 2016-11-04 10:02 | HEME/ONC PROGRESS NOTE ---
DATE: 11/04/2016 DIAGNOSES: 1. Pancytopenia. 2. Hyperferritinemia. 3. Elevated liver transaminases. 4. Bilateral lower extremity edema. 5. Lymphadenopathy. HOSPITAL COURSE: Carson is a pleasant 21-year-old gentleman who is now in hospital day #3 with subacute onset bilateral lower extremity edema and pancytopenia. Viral titers are pending. Reviewed the most recent hospitalist and infectious disease notes. The patient received Neupogen 480 mcg subQ q., along with 2 units of packed RBCs. Peripheral counts today reflect those interventions. Platelet count continues to fall modestly; however, not in a critical state presently. The patient still feels relatively well except for some mild nausea, I suspect brought on by antimicrobial therapy. Nursing reports no overnight issues. PHYSICAL EXAMINATION: GENERAL: He is in no acute distress. VITAL SIGNS: His fever is up a bit today 38.9, pulse 113, respirations 16, blood pressure 103/58. SKIN: Without rash or lesion. HEENT: Oral mucosa without erythema or ulceration. NECK: Supple. HEART: Regular rate and rhythm. No clicks, rubs or murmurs. LUNGS: Clear to auscultation bilaterally. ABDOMEN: Soft, nontender, nondistended, palpable hepatomegaly, splenic tip is also felt on palpation. EXTREMITIES: Edema seems to be a bit better in his lower extremities bilaterally. NEUROLOGIC: Grossly intact. LABORATORY DATA: WBC count 2530, hemoglobin 8.1, platelet count 94,000, absolute neutrophil count 1.86. Occasional teardrops and ovalocytes are seen on peripheral smear. Chemistries 136, potassium 4.3, chloride 103, carbon dioxide 27, BUN 10, creatinine 0.94, AST 88, total bilirubin 2.2, albumin 2.1. IMPRESSION: 1. Neutropenic fever. 2. Pancytopenia. 3. Hypoalbuminemia. 4. Elevated liver transaminases. 5. Hyperbilirubinemia. 6. Lymphadenopathy. PLAN: Again, examined Carson at bedside today. Seems to be holding his own clinically; however, I do note his fever is up a bit today. I spoke with infectious disease and running diagnosis remains possible infection (viral syndrome). He received Neupogen and packed RBCs yesterday, both reflected in today's result. However, his bilirubin and transaminases seemed to be on the rise again. Again, I will defer the medical team regarding transferring to a tertiary center. Clearly establishing the diagnosis locally may prove to be daunting. I will leave the hospitalist service and sign out Stacey Martina to Dr. Bunn who will take over Saturday. Thank you again for allowing us to participate in the care of this very interesting gentleman.
--- NOTE | 2016-11-04 10:49 | Family Medicine Progress Note ---
Progress Note Date of Service Nov 04, 2016. Subjective Pt evaluation today including: conversation w/ patient, physical exam, chart review, lab review, review of studies, conversation w/ organizational effectiveness consultant Pain: 0/10 PO Intake: WNL Voiding: no voiding problems Patient continues to feel well however ongoing spike of fever in the am His father will be here at approx 1430 this afternoon Constitutional: + fever (38.9 this am) Eyes: No worsening of vision ENT: No hearing loss Respiratory: No cough, No sputum, No wheezing, No shortness of breath, No dyspnea on exertion Cardiovascular: No chest pain Abdomen: No pain, No nausea, No vomiting, No diarrhea, No constipation Musculoskeletal: + swelling (ongoing improvement in swellng), No joint pain , No muscle pain Neurologic: No weakness, No balance problems Psychiatric: No depression symptoms Heme: No abnormal bleeding/bruising Endo: No fatigue Skin: No rash Medications Medications Administered Medications (Trade) Dose Ordered Sig/Ahsan Route Start Time Stop Time Status Last Admin Dose Admin Sodium Chloride 1,000 ml @ 999 mls/hr Q1H1M STAT IV 11/01/16 19:19 11/01/16 20:19 DC 11/01/16 19:19 999 MLS/HR Acetaminophen (Tylenol Tab) 1,000 mg NOW STAT PO 11/01/16 19:19 11/01/16 19:21 DC 11/01/16 19:31 1,000 MG Piperacillin Sod/ Tazobactam Sod (Zosyn Iv) 4.5 gm NOW STAT IV 11/01/16 21:23 11/01/16 21:24 DC 11/01/16 22:06 4.5 GM Acetaminophen (Tylenol Tab) 650 mg Q4H PRN PO 11/01/16 22:00 12/01/16 21:59 11/04/16 09:38 650 MG Piperacillin Sod/ Tazobactam Sod 4.5 gm/Dextrose 120 ml @ 30 mls/hr Q8H IV 11/02/16 02:00 11/02/16 09:10 DC 11/02/16 01:46 30 MLS/HR Levofloxacin 750 mg/Prmx 150 ml @ 100 mls/hr Q24H IV 11/01/16 23:00 11/11/16 22:59 11/03/16 23:24 100 MLS/HR Vancomycin HCl 1600 mg/Sodium Chloride 532 ml @ 200 mls/hr TODAY@0930 ONCE IV 11/02/16 09:30 11/02/16 12:09 DC 11/02/16 09:40 200 MLS/HR Piperacillin Sod/ Tazobactam Sod 3.375 gm/Dextrose 115 ml @ 28.75 mls/ hr Q8@0200,1000,1800 IV 11/02/16 10:00 11/11/16 09:59 11/04/16 09:37 28.75 MLS/HR Vancomycin HCl 1000 mg/Sodium Chloride 270 ml @ 125 mls/hr Q8@0200,1000,1800 IV 11/02/16 18:00 11/12/16 17:59 11/04/16 09:37 125 MLS/HR Doxycycline Hyclate (Vibramycin Cap) 100 mg BID PO 11/02/16 13:00 11/12/16 12:59 11/04/16 07:48 100 MG Acyclovir Sodium 500 mg/Dextrose 110 ml @ 110 mls/hr Q8H IV 11/03/16 11:00 11/03/16 16:08 DC 11/03/16 11:33 110 MLS/HR Filgrastim (Neupogen Sq) 480 mcg TODAY@0800,1200 SC 11/03/16 12:00 11/04/16 09:00 DC 11/04/16 07:48 480 MCG Acyclovir Sodium 700 mg/Dextrose 114 ml @ 110 mls/hr Q8H IV 11/03/16 19:00 11/13/16 18:59 11/04/16 03:20 110 MLS/HR Objective Vital Signs Date Time Temp Pulse Resp B/P (MAP) Pulse Ox O2 Delivery O2 Flow Rate FiO2 11/04/16 08:02 38.9 113 16 103/58 (73) 96 Room Air 11/04/16 08:00 100 Room Air 11/04/16 00:39 100 Room Air 11/04/16 00:03 37.6 101 18 94/57 (69) 99 Room Air 11/03/16 20:35 100 Room Air 11/03/16 19:38 36.8 101 18 128/80 (96) 96 Room Air 11/03/16 17:00 36.8 87 16 99/64 100 11/03/16 16:35 36.7 91 18 103/64 97 6/3/17 16:20 36.7 85 18 108/70 100 11/03/16 16:00 100 Room Air 11/03/16 15:57 36.7 93 18 103/60 (74) 99 Room Air 11/03/16 15:55 36.8 92 16 97/61 100 11/03/16 14:45 36.9 92 16 89/54 99 11/03/16 14:30 36.9 96 16 102/58 99 11/03/16 14:14 36.8 100 18 92/56 100 11/03/16 13:45 36.4 94 18 90/51 Physical Exam General Appearance: no apparent distress Eyes: normal inspection ENT: normal ENT inspection Neck: supple Respiratory/Chest: normal breath sounds, no respiratory distress, no accessory muscle use Cardiovascular: regular rate, rhythm, no murmur Abdomen: normal bowel sounds, non tender, soft Extremities: non-tender, normal inspection, no calf tenderness, + pedal edema ( +2 bilat R>L) Neurologic/Psychiatric: alert, normal mood/affect, oriented x 3 Skin: normal color, warm/dry, no rash Laboratory Results Results Past 24 Hours Test 11/03/16 19:02 11/04/16 05:22 11/04/16 09:44 Range/Units Hemoglobin 9.9 8.1 14.0-18.0 g/dL Hematocrit 30.4 23.3 42-52 % Prealbumin 5.1 20-40 mg/dl Immunoglobulin G 1500.0 700-1600 mg/dL Immunoglobulin A 188.0 70-400 mg/dL Immunoglobulin M 31.6 40-230 mg/dL White Blood Count 2.53 4.8-10.8 K/uL Red Blood Count 2.68 4.7-6.1 M/uL Mean Corpuscular Volume 86.9 80-100 fL Mean Corpuscular Hemoglobin 30.2 25-34 pg Mean Corpuscular Hemoglobin Concent 34.8 32-36 g/dl Platelet Count 94 130-400 K/uL Mean Platelet Volume 9.9 7.4-10.4 fL Neutrophils (%) (Auto) 73.5 % Lymphocytes (%) (Auto) 20.9 % Monocytes (%) (Auto) 4.0 % Eosinophils (%) (Auto) 0.4 % Basophils (%) (Auto) 0.4 % Neutrophils # (Auto) 1.86 1.4-6.5 K/uL Lymphocytes # (Auto) 0.53 1.2-3.4 K/uL Monocytes # (Auto) 0.10 0.11-0.59 K/uL Eosinophils # (Auto) 0.01 0-0.5 K/uL Basophils # (Auto) 0.01 0-0.2 K/uL RDW Standard Deviation 57.0 36.4-46.3 fL RDW Coefficient of Variation 18.0 11.5-14.5 % Immature Granulocyte % (Auto) 0.8 % Immature Granulocyte # (Auto) 0.02 0.00-0.02 K/uL Anisocytosis PRESENT Tear Drop Cells OCCASIONAL Ovalocytes 1+ Sodium Level 136 136-145 mmol/L Potassium Level 4.3 3.5-5.1 mmol/L Chloride Level 103 98-107 mmol/L Carbon Dioxide Level 27 21-32 mmol/L Anion Gap 6.0 3-11 mmol/L Blood Urea Nitrogen 10 7-18 mg/dl Creatinine 0.94 0.60-1.40 mg/dl Est Creatinine Clear Calc Drug Dose 111.5 ml/min Estimated GFR () 131.9 Estimated GFR (Non- 113.8 BUN/Creatinine Ratio 10.1 10-20 Random Glucose 92 70-99 mg/dl Calcium Level 7.0 8.5-10.1 mg/dl Total Bilirubin 2.2 0.2-1 mg/dl Aspartate Amino Transf (AST/SGOT) 88 15-37 U/L Alanine Aminotransferase (ALT/SGPT) 72 12-78 U/L Alkaline Phosphatase 64 45-117 U/L Total Protein 4.9 6.4-8.2 gm/dl Albumin 2.1 3.4-5.0 gm/dl Globulin 2.8 2.5-4.0 gm/dl Albumin/Globulin Ratio 0.8 0.9-2 Bartonella henselae IgG Ab Titer Bartonella henselae IgM Ab Titer Bartonella anglin IgG Ab Titer Bartonella anglin IgM Ab Titer Assessment and Plan 21 year old male presenting with new onset lower extremity edema bilaterally x 2 days. The patient has ongoing neutropenia and anemia and concerning. Pancytopenia - DDx: Hematological malignancy vs BM suppression 2/2 self-limited viral infection - After addition of Neupogen there is improvement, can d/c neutropenic precautions for now - Empiric antibiotics: Zosyn, Levaquin and Vancomycin, plan to d/c if neutrophils remain elevated tomorrow - received 2 units of prbc - Hematological evaluation Peripheral smear - essentially pancytopenic with no overt process; elevated bilirubin may suggest hemolysis Elevated reticulocyte count suggesting increasing BM output and expected elevated RDW Abdominal US suggests liver and splenic lesions: these favor infective process, though malignancy process could not be excluded--> CT scan revealed similar findings and malignancy could not be excluded -- ID recommends biopsy of these lesions/ axillary node - Will review further. - Infection Panel evaluation CMV, Parvovirus and EBV serologies are pending AFB culture and gold interferon test pending. Toxoplasma antibody pending B. henselae pending - hepatitis neg HIV is negative - Other infection: Lyme negative, influenza negative - Rheumatological evaluation AMADEO pending ESR normal - IgM low, IgG WNL - Nutritional Evaluation Iron studies: normal iron, elevated ferritin and TIBC Normal B12 and Folate - Endocrine Normal TSH - Toxic: pending lead level Hyperferritinemia - Work up as above Elevated LFT; hypoalbuminemia and Coag - Liver U/S notes innumerable hepatic and splenic lesions as well as CT abd, may need splenic biopsy - INR continues to remain slightly elevated - Mild transaminitis increasing - Hepatitis panel negative Bilateral pedal edema- improving - ? sec to hypoalbuminemia. - No protein in urine - prealbumin- low DVT Prophylaxis - SCD - Physiologically anticoagulated at this time; no pharmacological prophylaxis Disposition - Med/Surg - Needs to remain in hospital due to neutropenia and need for CBC monitoring and neutropenic precautions, pending potential transfer to tertiary center. After transfusion which was per hem/ onc there was some improvement however continues to decrease. Discussed transfer with attending and ID/ Hemm onc and plan per them is to hold until tomorrow and potentially transfer tomorrow. Family was agreeable to this. Continued [facility] stay due to: other Discharge planning: uncertain Reviewed: Pt Seen/Exam by Me History denies any concerns Constitutional: denies: fever Respiratory: negative: short of breath Cardiovascular: denies chest pain Gastrointestinal/Abdominal: negative: abdominal pain, nausea General Appearance: no apparent distress (sitting in bed comfortably) Respiratory: lungs clear, no respiratory distress Cardiovascular: regular rate, rhythm Gastrointestinal: normal bowel sounds, non tender, soft Neurologic/Psychiatric: alert, oriented x 3 Assessment/Plan I have reviewed the medical record and performed a history and physical examination of this patient today. I have discussed the case with Dr Jain. The above note reflects my findings, conclusions, and recommendations.
[2016-11-04 13:26] LABS: BENZODIAZEPINE, URINE NEG (NEG); COCAINE,URINE NEG (NEG); PHENCYCLIDINE, URINE NEG (NEG)
[2016-11-04 15:14] VITALS: BP 100/65; PULSE 88; TEMP 36.6; O2SAT 99
--- NOTE | 2016-11-04 18:30 | Gastroenterology Progress Note ---
Progress Note Date of Service: Nov 04, 2016 Subjective Pt evaluation today including: conversation w/ patient, conversation w/ family (father), physical exam, chart review (no Genie chart could be found), lab review, review of studies, review of inpatient medication list Medications Current Inpatient Medications Medications (Trade) Dose Ordered Sig/Ahsan Route Start Time Stop Time Status Last Admin Dose Admin Acetaminophen (Tylenol Tab) 650 mg Q4H PRN PO 11/01/16 22:00 12/01/16 21:59 11/04/16 09:38 650 MG Al Hydrox/Mg Hydrox/Simethicone (Maalox Max Susp) 15 ml Q4H PRN PO 11/01/16 22:00 12/01/16 21:59 Magnesium Hydroxide (Milk Of Magnesia Susp) 30 ml Q6H PRN PO 11/01/16 22:00 12/01/16 21:59 Ondansetron HCl (Zofran Inj) 4 mg Q6H PRN IV 11/01/16 22:00 12/01/16 21:59 Levofloxacin 750 mg/Prmx 150 ml @ 100 mls/hr Q24H IV 11/01/16 23:00 11/11/16 22:59 11/03/16 23:24 100 MLS/HR Vancomycin HCl (Consult) 1 ea UD PRN N/A 11/02/16 09:15 12/02/16 09:14 Piperacillin Sod/ Tazobactam Sod (Consult) 1 ea UD PRN N/A 11/02/16 09:15 12/02/16 09:14 Piperacillin Sod/ Tazobactam Sod 3.375 gm/Dextrose 115 ml @ 28.75 mls/ hr Q8@0200,1000,1800 IV 11/02/16 10:00 11/11/16 09:59 11/04/16 09:37 28.75 MLS/HR Vancomycin HCl 1000 mg/Sodium Chloride 270 ml @ 125 mls/hr Q8@0200,1000,1800 IV 11/02/16 18:00 11/12/16 17:59 11/04/16 09:37 125 MLS/HR Doxycycline Hyclate (Vibramycin Cap) 100 mg BID PO 11/02/16 13:00 11/12/16 12:59 11/04/16 07:48 100 MG Ioversol (Optiray 320) 111 ml UD PRN IV 11/02/16 12:45 11/06/16 12:44 Acyclovir Sodium 700 mg/Dextrose 114 ml @ 110 mls/hr Q8H IV 11/03/16 19:00 11/13/16 18:59 11/04/16 10:56 110 MLS/HR Objective Vital Signs Date Time Temp Pulse Resp B/P (MAP) Pulse Ox O2 Delivery O2 Flow Rate FiO2 11/04/16 16:00 Room Air 11/04/16 15:14 36.6 88 18 100/65 (77) 99 Room Air 11/04/16 08:02 38.9 113 16 103/58 (73) 96 Room Air 11/04/16 08:00 100 Room Air 11/04/16 00:39 100 Room Air 11/04/16 00:03 37.6 101 18 94/57 (69) 99 Room Air 11/03/16 20:35 100 Room Air 11/03/16 19:38 36.8 101 18 128/80 (96) 96 Room Air Physical Exam Abdomen: normal bowel sounds, non tender, soft Laboratory Results Last 24 Hours Test 11/03/16 19:02 11/04/16 00:00 11/04/16 05:22 11/04/16 09:44 Hemoglobin 9.9 g/dL 8.1 g/dL Hematocrit 30.4 % 23.3 % Prealbumin 5.1 mg/dl Immunoglobulin G 1500.0 mg/dL Immunoglobulin A 188.0 mg/dL Immunoglobulin M 31.6 mg/dL Urine Random Microalbumin < 5.0 mg/L Urine Opiates Screen NEG Urine Methadone, Qualitative NEG Urine Barbiturates NEG Urine Phencyclidine (PCP) Level NEG Ur Amphetamine/Methamphetamine NEG MDMA (Ecstasy) Screen NEG Urine Benzodiazepines Screen NEG Urine Cocaine Metabolite NEG Urine Marijuana (THC) NEG White Blood Count 2.53 K/uL Red Blood Count 2.68 M/uL Mean Corpuscular Volume 86.9 fL Mean Corpuscular Hemoglobin 30.2 pg Mean Corpuscular Hemoglobin Concent 34.8 g/dl Platelet Count 94 K/uL Mean Platelet Volume 9.9 fL Neutrophils (%) (Auto) 73.5 % Lymphocytes (%) (Auto) 20.9 % Monocytes (%) (Auto) 4.0 % Eosinophils (%) (Auto) 0.4 % Basophils (%) (Auto) 0.4 % Neutrophils # (Auto) 1.86 K/uL Lymphocytes # (Auto) 0.53 K/uL Monocytes # (Auto) 0.10 K/uL Eosinophils # (Auto) 0.01 K/uL Basophils # (Auto) 0.01 K/uL RDW Standard Deviation 57.0 fL RDW Coefficient of Variation 18.0 % Immature Granulocyte % (Auto) 0.8 % Immature Granulocyte # (Auto) 0.02 K/uL Anisocytosis PRESENT Tear Drop Cells OCCASIONAL Ovalocytes 1+ Sodium Level 136 mmol/L Potassium Level 4.3 mmol/L Chloride Level 103 mmol/L Carbon Dioxide Level 27 mmol/L Anion Gap 6.0 mmol/L Blood Urea Nitrogen 10 mg/dl Creatinine 0.94 mg/dl Est Creatinine Clear Calc Drug Dose 111.5 ml/min Estimated GFR () 131.9 Estimated GFR (Non- 113.8 BUN/Creatinine Ratio 10.1 Random Glucose 92 mg/dl Calcium Level 7.0 mg/dl Total Bilirubin 2.2 mg/dl Aspartate Amino Transf (AST/SGOT) 88 U/L Alanine Aminotransferase (ALT/SGPT) 72 U/L Alkaline Phosphatase 64 U/L Total Protein 4.9 gm/dl Albumin 2.1 gm/dl Globulin 2.8 gm/dl Albumin/Globulin Ratio 0.8 Bartonella henselae IgG Ab Titer Bartonella henselae IgM Ab Titer Bartonella anglin IgG Ab Titer Bartonella anglin IgM Ab Titer Assessment and Plan GI consult dictated, [id number] Elevated LFTS--TB worse since admit but AST and ALT overall better. I suspect the overall process is infectious or lymphoproliferative with secondary involvement of the liver versus a primary liver process. Caldwell is negative but awaiting EBV and CMV which can cause systemic process and elevated LFTs. While a primary liver process is in the differential I would suspect AST/ALT in 500 range or above in acute hepatitis. Coagulopathy--elevated PT could be secondary to diffuse liver process--follow Liver and spleen lesions--likely from infectious of lymphoproliferative process elevated ferritin 4428--Fe sat normal--definitely needs followed as outpt to make sure just acute phase reactant At this point no additional testing recommended from GI standpoint but would follow LFT and PT. Further workup of infectious or lymphoproliferative process per ID and oncology. Will follow. I am going off service tomorrow 11/05/16 at 0800 and will be signing out to DR Garcia.
[2016-11-04 19:15] LABS: HEMATOCRIT 25.6 % (42-52); MEAN CELL VOLUME 86.2 fL (80-100); MEAN CORPUSCULAR HEMOGLOBIN 29.3 pg (25-34); MEAN PLATELET VOLUME 9.3 fL (7.4-10.4); PLATELET COUNT 106 K/uL (130-400); RED BLOOD COUNT 2.97 M/uL (4.7-6.1); WHITE BLOOD COUNT 2.88 K/uL (4.8-10.8)
[2016-11-04 19:30] LABS: INR 1.4 (0.9-1.1); PROTHROMBIN TIME (PATIENT) 15.2 SECONDS (9.0-12.0)
[2016-11-04 20:02] LABS: BASO % 0.3 %; BASO ABS # 0.01 K/uL (0-0.2); COMPLETE YES; HYPOCHROMIA PRESENT; IG% 0.7 %; LYMPH % 18.1 %; LYMPH ABS # 0.52 K/uL (1.2-3.4); MONO % 2.8 %; NEUT % 78.1 %; OVALOCYTES 1+; POLYCHROMASIA 1+
[2016-11-04] MEDS: LEVOFLOXACIN / D5W 750 MG in PREMIXED IN D5W 150 ML IV SCH (22:48)
[2016-11-04 23:55] VITALS: BP 91/50; PULSE 116; TEMP 39.5; O2SAT 100
[2016-11-05 00:47] VITALS: TEMP 37
[2016-11-05] MEDS ORDERED: VANCOMYCIN TROUGH SCH (01:30)
[2016-11-05] MEDS: VANCOMYCIN INJ 1,000 MG in SODIUM CHLORIDE 0.9% 250ML 250 ML IV SCH ×2 (02:02→09:56)
[2016-11-05] MEDS: PIPERACILL/TAZOBAC IV 3.375 GM in DEXTROSE 5% 100ML IV SCH ×2 (02:02→09:56)
[2016-11-05] MEDS: DEXTROSE 5% IV SCH ×2 (03:20→12:15)
[2016-11-05] MEDS: ACYCLOVIR SOD IV SCH ×2 (03:20→12:15)
[2016-11-05 05:47] LABS: HEMATOCRIT 25.9 % (42-52); MEAN CELL VOLUME 87.8 fL (80-100); MEAN CORPUSCULAR HEMOGLOBIN 28.5 pg (25-34); MEAN CORPUSCULAR HGB CONC 32.4 g/dl (32-36); MEAN PLATELET VOLUME 9.4 fL (7.4-10.4); PLATELET COUNT 103 K/uL (130-400); RED BLOOD COUNT 2.95 M/uL (4.7-6.1); WHITE BLOOD COUNT 2.78 K/uL (4.8-10.8)
[2016-11-05 06:00] LABS: INR 1.4 (0.9-1.1); PROTHROMBIN TIME (PATIENT) 15.5 SECONDS (9.0-12.0)
[2016-11-05 06:19] LABS: BUN/CREATININE RATIO 10.9 (10-20); CALCIUM 7.2 mg/dl (8.5-10.1); CREATININE 0.83 mg/dl (0.60-1.40)
[2016-11-05 06:21] LABS: ALB/GLOB RATIO 0.8 (0.9-2)
[2016-11-05 06:27] LABS: BASO % 0.4 %; BASO ABS # 0.01 K/uL (0-0.2); COMPLETE YES; DOHLE BODIES 3+; EOS % 0.4 %; IG% 2.5 %; LYMPH % 16.5 %; LYMPH ABS # 0.46 K/uL (1.2-3.4); MONO % 6.1 %; NEUT % 74.1 %; OVALOCYTES 1+; POLYCHROMASIA 1+; TEAR DROP CELLS OCCASIONAL; VACUOLIZATION 2+
[2016-11-05 07:35] VITALS: BP 111/65; PULSE 107; TEMP 39.1; O2SAT 100
--- NOTE | 2016-11-05 07:56 | GASTROINTESTINAL CONSULTATION ---
DATE OF CONSULTATION: 11/04/2016 CONSULTATION REQUESTED BY: Dr. Gisele Jain CHIEF COMPLAINT: The patient has lower extremity swelling. HISTORY OF PRESENT ILLNESS: The patient went to [facility] last summer and did ostensibly fine during that trip and afterwards. Apparently, around May he had some flu-like illness, muscle aches, pains and maybe a couple of bouts of that. He did not think otherwise of having any particular problems although he recently noted to have lower extremity swelling and presented to the Emergency Room for that, was subsequently admitted and noted to have neutropenia, fever and anemia . Also was noted to have some elevated LFTs with normal alkaline phosphatase, AST 121, ALT 110 and total bilirubin 1.6. Today his total bilirubin is higher at 2.2, but AST better at 81 and ALT 72. The patient has had no bloody stools or black stools. No abdominal pain, no change in bowels, no dysphagia, no change in his weight. No nausea, vomiting, no GERD. No other GI diagnosis. No liver disease. He states he may have had blood work about a year or so ago as a physical, that was normal, but he does not know if liver tests were included in that. PAST MEDICAL HISTORY: ALLERGIES: Negative. MEDICATIONS ON ADMISSION: P.r.n. Vicks Nyquil; flu. PROBLEMS AND SURGERY: Negative. FAMILY HISTORY: Negative for liver disease. SOCIAL HISTORY: Tobacco negative, ethanol negative. REVIEW OF SYSTEMS: Constitutional, eyes, ears, nose, mouth, throat, cardiovascular, respiratory, genitourinary, musculoskeletal, integumentary, neurologic, psych, endocrine, hematologic and allergic negative except as noted above. PHYSICAL EXAMINATION: GENERAL: Male, appears stated age, in no acute distress. VITAL SIGNS: Most recent vital signs in the chart; temp 36.6, pulse 88, respirations 18, BP 100/65 and O2 saturation 99% on room air. EYES: Conjunctivae and lids normal. NECK: Without obvious mass or thyroid enlargement. RESPIRATORY: Normal effort. Clear to auscultation. CARDIOVASCULAR: Regular rate and rhythm. EXTREMITIES: Without edema. ABDOMEN: Positive bowel sounds, soft, nontender, no obvious organomegaly or masses are appreciated. RECTAL: Not done. LYMPH: No obvious neck or supraclavicular, axillary or groin nodes. NEUROLOGIC: Cranial nerves are intact. Sensation intact. PSYCHIATRIC: Recent and remote memory good. Insight and judgment good. DATA: ESR was 2. PT INR slightly elevated at 1.4 on admission, acetaminophen level was 10 on 11/02/2016. Tox screen was negative. HIV was negative. Ferritin was elevated at 4428, but iron sat was normal at 30%, HIV was negative. Lyme disease, acute hepatitis panel negative. [place] screen negative. Influenza negative. B12, folate, TSH was normal. Chest CT; moderate right axillary lymphadenopathy. Spleen; nodules noted. Chest x-ray; negative. Abdominal ultrasound; hepatomegaly, small ascites, gallbladder thickening and gallbladder polyps. Enlarged spleen, splenic lesions peripancreatic nodes. Abdomen and pelvic CT scan; liver and spleen lesions, splenomegaly, periportal adenopathy, small ascites. Pending tests rather are lead, AMADEO, CMV, EBV, PARVO, TOXO AND BARTONELLA. IMPRESSION AND PLAN: 1. Elevated liver function tests. Total bilirubin is worse, but AST and ALT are better, alkaline phosphatase is normal. I suspect overall process is infectious or lymphoproliferative with secondary involvement of the liver versus a primary liver process. [place] is negative. I will be awaiting EBV and CMV, which can cause a infectious process and elevated LFTs. However, a primary liver process while being the differential, I would suspect an AST and ALT in excess of 500. 2. Coagulopathy elevated protime could be secondary to diffuse liver process. 3. Liver and spleen lesions likely from infectious or lymphoproliferative process. 4. Elevated ferritin, high at 4428 would definitely need to be followed as an outpatient to see whether this is acute phase reactant or not, but iron saturation is normal at 30%. Discussed with patient and father. YE
--- NOTE | 2016-11-05 08:59 | Pharmacy Progress Note ---
Pharmacy Abx Dose Short Note Date of Service Nov 05, 2016. Assessment & Plan Assessment 21 year old male receiving vancomycin, Levaquin, Zosyn, acyclovir, doxycycline for treatment of neutropenic fever Day # 4 of antimicrobial therapy. Per ID's note yesterday, plan to d/c abx in 24 hrs (would be today) if blood cultures remain negative and WBC remains elevated Plan Blood cultures have remained negative and WBC count has been stable - expect that antibiotics (other than doxy) will be d/c'd today per ID Vancomycin * Trough level of 14.1 mcg/mL is just slightly subtherapeutic * Continue 1000 mg IV every 8 hours (can plan to adjust slightly if vancomycin to be continued) * Goal trough level for neutropenic fever : 15 to 20 mcg/mL Zosyn * Continue 3.375 gm q8h Pharmacy not consulted to dose other antibiotics Pharmacy will continue to follow and will adjust dose/frequency as necessary. Thank you.
[2016-11-05 09:16] VITALS: TEMP 37.8
[2016-11-05] MEDS: DOXYCYCLINE HYCLATE 100 MG CAP PO SCH ×2 (09:32→20:07)
--- NOTE | 2016-11-05 10:25 | Hematology/Oncology Prog Note ---
Hematology/Onc Progress Note Date of Service Nov 05, 2016. Diagnoses Fevers Pancytopenia Medications Medications Administered Medications (Trade) Dose Ordered Sig/Ahsan Route Start Time Stop Time Status Last Admin Dose Admin Sodium Chloride 1,000 ml @ 999 mls/hr Q1H1M STAT IV 11/01/16 19:19 11/01/16 20:19 DC 11/01/16 19:19 999 MLS/HR Acetaminophen (Tylenol Tab) 1,000 mg NOW STAT PO 11/01/16 19:19 11/01/16 19:21 DC 11/01/16 19:31 1,000 MG Piperacillin Sod/ Tazobactam Sod (Zosyn Iv) 4.5 gm NOW STAT IV 11/01/16 21:23 11/01/16 21:24 DC 11/01/16 22:06 4.5 GM Acetaminophen (Tylenol Tab) 650 mg Q4H PRN PO 11/01/16 22:00 12/01/16 21:59 11/04/16 23:42 650 MG Piperacillin Sod/ Tazobactam Sod 4.5 gm/Dextrose 120 ml @ 30 mls/hr Q8H IV 11/02/16 02:00 11/02/16 09:10 DC 11/02/16 01:46 30 MLS/HR Levofloxacin 750 mg/Prmx 150 ml @ 100 mls/hr Q24H IV 11/01/16 23:00 11/11/16 22:59 11/04/16 22:48 100 MLS/HR Vancomycin HCl 1600 mg/Sodium Chloride 532 ml @ 200 mls/hr TODAY@0930 ONCE IV 11/02/16 09:30 11/02/16 12:09 DC 11/02/16 09:40 200 MLS/HR Piperacillin Sod/ Tazobactam Sod 3.375 gm/Dextrose 115 ml @ 28.75 mls/ hr Q8@0200,1000,1800 IV 11/02/16 10:00 11/11/16 09:59 11/05/16 02:02 28.75 MLS/HR Vancomycin HCl 1000 mg/Sodium Chloride 270 ml @ 125 mls/hr Q8@0200,1000,1800 IV 11/02/16 18:00 11/12/16 17:59 11/05/16 02:02 125 MLS/HR Doxycycline Hyclate (Vibramycin Cap) 100 mg BID PO 11/02/16 13:00 11/12/16 12:59 11/04/16 20:25 100 MG Acyclovir Sodium 500 mg/Dextrose 110 ml @ 110 mls/hr Q8H IV 11/03/16 11:00 11/03/16 16:08 DC 11/03/16 11:33 110 MLS/HR Filgrastim (Neupogen Sq) 480 mcg TODAY@0800,1200 SC 11/03/16 12:00 11/04/16 09:00 DC 11/04/16 07:48 480 MCG Acyclovir Sodium 700 mg/Dextrose 114 ml @ 110 mls/hr Q8H IV 11/03/16 19:00 11/13/16 18:59 11/05/16 03:20 110 MLS/HR Subjective Mr. Mack feels just fine today. He did have another fever overnight, but his lymphadenopathy continues to resolve. He has no other specific symptoms. He denies any rashes, URI-type symptoms, or hematuria. He had his first-ever sexual encounter about 3 weeks prior to the onset of his symptoms. Review of Systems: Constitutional: + fever, + chills Respiratory: No cough, No shortness of breath Cardiovascular: No chest pain Abdomen: No pain, No nausea, No diarrhea Musculoskeletal: No joint pain, No muscle pain Male : No dysuria Neurologic: No weakness, No numbness/tingling Heme: No abnormal bleeding/bruising Skin: No rash Vital Signs Vital Signs Past 12 Hours Date Time Temp Pulse Resp B/P (MAP) Pulse Ox O2 Delivery O2 Flow Rate FiO2 11/05/16 09:16 37.8 11/05/16 07:35 39.1 107 16 111/65 (80) 100 Room Air 11/05/16 00:47 37.0 11/05/16 00:00 Room Air 11/04/16 23:55 39.5 116 18 91/50 (64) 100 Room Air Physical Exam Constitutional: General Apperance: heathly-appearing Level of Distress: NAD Psychiatric: Mental Status: active & alert Orientation: oriented except where noted ENMT: pertinent finding (no mucositis, sclerae anicteric) Neck: trachea midline Lungs: Respiratory Effort: no dyspnea Auscuitation: breath sounds normal Cardiovascular: Heart Auscultation: RRR Abdomen: Inspection & Palpation: soft, no tenderness, guarding & rebound, pertinent finding (no organomegaly) Extremities: no edema Laboratory Last 24 Hours Test 11/04/16 19:08 11/05/16 01:32 11/05/16 05:09 11/05/16 09:44 White Blood Count 2.88 K/uL 2.78 K/uL Red Blood Count 2.97 M/uL 2.95 M/uL Hemoglobin 8.7 g/dL 8.4 g/dL Hematocrit 25.6 % 25.9 % Mean Corpuscular Volume 86.2 fL 87.8 fL Mean Corpuscular Hemoglobin 29.3 pg 28.5 pg Mean Corpuscular Hemoglobin Concent 34.0 g/dl 32.4 g/dl Platelet Count 106 K/uL 103 K/uL Mean Platelet Volume 9.3 fL 9.4 fL Neutrophils (%) (Auto) 78.1 % 74.1 % Lymphocytes (%) (Auto) 18.1 % 16.5 % Monocytes (%) (Auto) 2.8 % 6.1 % Eosinophils (%) (Auto) 0.0 % 0.4 % Basophils (%) (Auto) 0.3 % 0.4 % Neutrophils # (Auto) 2.25 K/uL 2.06 K/uL Lymphocytes # (Auto) 0.52 K/uL 0.46 K/uL Monocytes # (Auto) 0.08 K/uL 0.17 K/uL Eosinophils # (Auto) 0.00 K/uL 0.01 K/uL Basophils # (Auto) 0.01 K/uL 0.01 K/uL RDW Standard Deviation 55.8 fL 57.5 fL RDW Coefficient of Variation 18.2 % 18.2 % Immature Granulocyte % (Auto) 0.7 % 2.5 % Immature Granulocyte # (Auto) 0.02 K/uL 0.07 K/uL Polychromasia 1+ 1+ Hypochromasia PRESENT Ovalocytes 1+ 1+ Prothrombin Time 15.2 SECONDS 15.5 SECONDS Prothromb Time International Ratio 1.4 1.4 Vancomycin Level Trough 14.1 mcg/ml Toxic Vacuolation 2+ Dohle Bodies 3+ Tear Drop Cells OCCASIONAL Sodium Level 139 mmol/L Potassium Level 4.0 mmol/L Chloride Level 103 mmol/L Carbon Dioxide Level 28 mmol/L Anion Gap 8.0 mmol/L Blood Urea Nitrogen 9 mg/dl Creatinine 0.83 mg/dl Est Creatinine Clear Calc Drug Dose 126.3 ml/min Estimated GFR () 143.7 Estimated GFR (Non- 124.0 BUN/Creatinine Ratio 10.9 Random Glucose 90 mg/dl Calcium Level 7.2 mg/dl Total Bilirubin 1.8 mg/dl Aspartate Amino Transf (AST/SGOT) 97 U/L Alanine Aminotransferase (ALT/SGPT) 78 U/L Alkaline Phosphatase 85 U/L Total Protein 5.2 gm/dl Albumin 2.3 gm/dl Globulin 2.9 gm/dl Albumin/Globulin Ratio 0.8 Assessment & Plan Mr. Mack continues to be febrile, despite broad-spectrum antibiotics. His blood cultures are also negative. He does not clearly have evidence of a hematologic malignancy. I suspect his symptoms reflect an infection of some sort. Whether this represents a zoonotic infection, a virus like CMV or EBV, or some other agent is not yet clear. Importantly, he was negative for HIV. A broad panel of serologies is pending. Given that he is stable, I do not see much need to transfer him at this time, at least until the workup we are capable of performing is negative. If at that time he remains febrile and cytopenic, I would consider transfer to a tertiary center. For now, we can continue with neupogen and transfusion for hemoglobin <7.5
--- NOTE | 2016-11-05 11:27 | Progress Note ---
Subjective Date of Service: Nov 05, 2016. Subjective Pt evaluation today including: conversation w/ patient, physical exam, chart review, lab review pt with fevers again overnight, tmax 39.5, states he felt warm at times but is now feeling better. no pain, no cp,sob, cough, eating well. no n/v/. tolerating abx. wbc at 2.7, g csf x 1 over weekend. also had transfusion. nothing overnight. all cultures negative. LFTs elevated this am. multiple studies remain pending. Problem List Medical Problems: (1) Elevated liver enzymes Status: Acute (2) Swelling of lower extremity Status: Acute Objective Vital Signs Date Time Temp Pulse Resp B/P (MAP) Pulse Ox O2 Delivery O2 Flow Rate FiO2 11/05/16 09:16 37.8 11/05/16 09:00 Room Air 11/05/16 07:35 39.1 107 16 111/65 (80) 100 Room Air 11/05/16 00:47 37.0 11/05/16 00:00 Room Air 11/04/16 23:55 39.5 116 18 91/50 (64) 100 Room Air 11/04/16 20:00 Room Air 11/04/16 16:00 Room Air 11/04/16 15:14 36.6 88 18 100/65 (77) 99 Room Air Physical Exam General Appearance: WD/WN, no apparent distress Eyes: normal inspection, EOMI Neck: supple Respiratory/Chest: lungs clear, normal breath sounds, no respiratory distress Cardiovascular: regular rate, rhythm, no edema Abdomen: non tender, soft Extremities: non-tender, normal inspection, no pedal edema Neurologic/Psychiatric: alert, oriented x 3 Skin: normal color Laboratory Results Item Value Date Time Acid Fast Stain - Final Resulted 11/02/16 1455 Blood Blood Culture - Preliminary Resulted 11/01/16 1945 Blood NO GROWTH TO DATE. Blood Culture - Preliminary Resulted 11/01/16 1930 Blood NO GROWTH TO DATE. Last 24 Hours Test 11/04/16 19:08 11/05/16 01:32 11/05/16 05:09 11/05/16 09:44 White Blood Count 2.88 K/uL 2.78 K/uL Red Blood Count 2.97 M/uL 2.95 M/uL Hemoglobin 8.7 g/dL 8.4 g/dL Hematocrit 25.6 % 25.9 % Mean Corpuscular Volume 86.2 fL 87.8 fL Mean Corpuscular Hemoglobin 29.3 pg 28.5 pg Mean Corpuscular Hemoglobin Concent 34.0 g/dl 32.4 g/dl Platelet Count 106 K/uL 103 K/uL Mean Platelet Volume 9.3 fL 9.4 fL Neutrophils (%) (Auto) 78.1 % 74.1 % Lymphocytes (%) (Auto) 18.1 % 16.5 % Monocytes (%) (Auto) 2.8 % 6.1 % Eosinophils (%) (Auto) 0.0 % 0.4 % Basophils (%) (Auto) 0.3 % 0.4 % Neutrophils # (Auto) 2.25 K/uL 2.06 K/uL Lymphocytes # (Auto) 0.52 K/uL 0.46 K/uL Monocytes # (Auto) 0.08 K/uL 0.17 K/uL Eosinophils # (Auto) 0.00 K/uL 0.01 K/uL Basophils # (Auto) 0.01 K/uL 0.01 K/uL RDW Standard Deviation 55.8 fL 57.5 fL RDW Coefficient of Variation 18.2 % 18.2 % Immature Granulocyte % (Auto) 0.7 % 2.5 % Immature Granulocyte # (Auto) 0.02 K/uL 0.07 K/uL Polychromasia 1+ 1+ Hypochromasia PRESENT Ovalocytes 1+ 1+ Prothrombin Time 15.2 SECONDS 15.5 SECONDS Prothromb Time International Ratio 1.4 1.4 Vancomycin Level Trough 14.1 mcg/ml Toxic Vacuolation 2+ Dohle Bodies 3+ Tear Drop Cells OCCASIONAL Sodium Level 139 mmol/L Potassium Level 4.0 mmol/L Chloride Level 103 mmol/L Carbon Dioxide Level 28 mmol/L Anion Gap 8.0 mmol/L Blood Urea Nitrogen 9 mg/dl Creatinine 0.83 mg/dl Est Creatinine Clear Calc Drug Dose 126.3 ml/min Estimated GFR () 143.7 Estimated GFR (Non- 124.0 BUN/Creatinine Ratio 10.9 Random Glucose 90 mg/dl Calcium Level 7.2 mg/dl Total Bilirubin 1.8 mg/dl Aspartate Amino Transf (AST/SGOT) 97 U/L Alanine Aminotransferase (ALT/SGPT) 78 U/L Alkaline Phosphatase 85 U/L Total Protein 5.2 gm/dl Albumin 2.3 gm/dl Globulin 2.9 gm/dl Albumin/Globulin Ratio 0.8 Assessment and Plan (1) Neutropenic fever Assessment & Plan: no neutropenic currently but remains with fever. will stop abx with expception of doxy as doubt bacterial infection. tick borne panel pending. will check SUNNY level, ? sarcoid Certainly viral infection could present with these symptoms but doubt significant findings of hepatic and splenic lesions with infection, other than MAC which would be unlikely, AFB blood culture pending, smear negative, IGRA pending Discussed with primary and heme/onc, at this point would suggest biopsy of liver vs node vs bone marrow. would check culture, fungal culture, afb culture and cytology. LFTS, liver lesions and significantly elevated ferritin concerning. (2) Elevated liver enzymes Continued [facility] stay due to: other Discharge planning: uncertain
[2016-11-05 12:06] LABS: QUANTIF TB AG-NIL <0.00 IU/ML; QUANTIFERON NIL 1.09 IU/ML
[2016-11-05] MEDS ORDERED: CYANOCOBALAMIN 500 MCG TAB (VIT B-12) PO ONE (12:10)
[2016-11-05] MEDS ORDERED: FILGRASTIM 300 MCG/ML 1 ML VIAL SQ SCH (14:00)
--- NOTE | 2016-11-05 14:15 | Medical Student: [facility] ---
Med Student Progress Note Date of Service Nov 05, 2016. Subjective This is a 21 year old [place] male with no significant pmh who has been admitted for pancytopenia, neutropenic fever, and lower extremity edema. Overall , he feels well today with no complaints. He has had a fever since last night that did not resolve with ibuprofen. Infectious disease panels still pending. The patient has been receiving Neupogen 280 mcg subQ shots, and has had 2 units of packed RBCs transfused. Peripheral counts have remained stable. He denies headaches, nausea, vomiting, diarrhea, chills, night sweats, abdominal pain, dysuria. He denies any recent travel or illness. He does note that he may have lost some weight in the last few months. Review of Systems Constitutional: No chills Respiratory: No cough, No wheezing, No shortness of breath, No dyspnea on exertion Cardiac: No chest pain Abdomen: No vomiting, No diarrhea Heme: + swollen lymph nodes, No abnormal bleeding/bruising, No night sweats Skin: No rash All Other Systems: Reviewed and Negative Objective Vital Signs Date Time Temp Pulse Resp B/P (MAP) Pulse Ox O2 Delivery O2 Flow Rate FiO2 11/05/16 09:16 37.8 11/05/16 09:00 Room Air 11/05/16 07:35 39.1 107 16 111/65 (80) 100 Room Air 11/05/16 00:47 37.0 11/05/16 00:00 Room Air 11/04/16 23:55 39.5 116 18 91/50 (64) 100 Room Air 11/04/16 20:00 Room Air 11/04/16 16:00 Room Air 11/04/16 15:14 36.6 88 18 100/65 (77) 99 Room Air Physical Exam General Appearance: WD/WN, no apparent distress ENT: pharynx normal Neck: supple, no adenopathy, thyroid normal, no JVD, + pertinent finding ( Axillary lymph node palpable on Right. Has decreased in size compared to previous. Is soft, nontender, and freely mobile. ) Respiratory/Chest: chest non-tender, lungs clear Cardiovascular: regular rate, rhythm Abdomen: normal bowel sounds, non tender, soft, no organomegaly, no pulsatile mass Extremities: normal range of motion, + pedal edema (1+ bilaterally ) Neurologic/Psychiatric: alert, normal mood/affect, oriented x 3 Skin: normal color, warm/dry Laboratory Results Last 24 Hours Test 11/04/16 19:08 11/05/16 00:00 11/05/16 01:32 11/05/16 05:09 White Blood Count 2.88 K/uL 2.78 K/uL Red Blood Count 2.97 M/uL 2.95 M/uL Hemoglobin 8.7 g/dL 8.4 g/dL Hematocrit 25.6 % 25.9 % Mean Corpuscular Volume 86.2 fL 87.8 fL Mean Corpuscular Hemoglobin 29.3 pg 28.5 pg Mean Corpuscular Hemoglobin Concent 34.0 g/dl 32.4 g/dl Platelet Count 106 K/uL 103 K/uL Mean Platelet Volume 9.3 fL 9.4 fL Neutrophils (%) (Auto) 78.1 % 74.1 % Lymphocytes (%) (Auto) 18.1 % 16.5 % Monocytes (%) (Auto) 2.8 % 6.1 % Eosinophils (%) (Auto) 0.0 % 0.4 % Basophils (%) (Auto) 0.3 % 0.4 % Neutrophils # (Auto) 2.25 K/uL 2.06 K/uL Lymphocytes # (Auto) 0.52 K/uL 0.46 K/uL Monocytes # (Auto) 0.08 K/uL 0.17 K/uL Eosinophils # (Auto) 0.00 K/uL 0.01 K/uL Basophils # (Auto) 0.01 K/uL 0.01 K/uL RDW Standard Deviation 55.8 fL 57.5 fL RDW Coefficient of Variation 18.2 % 18.2 % Immature Granulocyte % (Auto) 0.7 % 2.5 % Immature Granulocyte # (Auto) 0.02 K/uL 0.07 K/uL Polychromasia 1+ 1+ Hypochromasia PRESENT Ovalocytes 1+ 1+ Prothrombin Time 15.2 SECONDS 15.5 SECONDS Prothromb Time International Ratio 1.4 1.4 Vancomycin Level Trough 14.1 mcg/ml Toxic Vacuolation 2+ Dohle Bodies 3+ Tear Drop Cells OCCASIONAL Sodium Level 139 mmol/L Potassium Level 4.0 mmol/L Chloride Level 103 mmol/L Carbon Dioxide Level 28 mmol/L Anion Gap 8.0 mmol/L Blood Urea Nitrogen 9 mg/dl Creatinine 0.83 mg/dl Est Creatinine Clear Calc Drug Dose 126.3 ml/min Estimated GFR () 143.7 Estimated GFR (Non- 124.0 BUN/Creatinine Ratio 10.9 Random Glucose 90 mg/dl Calcium Level 7.2 mg/dl Total Bilirubin 1.8 mg/dl Aspartate Amino Transf (AST/SGOT) 97 U/L Alanine Aminotransferase (ALT/SGPT) 78 U/L Alkaline Phosphatase 85 U/L Total Protein 5.2 gm/dl Albumin 2.3 gm/dl Globulin 2.9 gm/dl Albumin/Globulin Ratio 0.8 Test 11/05/16 09:44 Medications Medications Administered Medications (Trade) Dose Ordered Sig/Ahsan Route Start Time Stop Time Status Last Admin Dose Admin Sodium Chloride 1,000 ml @ 999 mls/hr Q1H1M STAT IV 11/01/16 19:19 11/01/16 20:19 DC 11/01/16 19:19 999 MLS/HR Acetaminophen (Tylenol Tab) 1,000 mg NOW STAT PO 11/01/16 19:19 11/01/16 19:21 DC 11/01/16 19:31 1,000 MG Piperacillin Sod/ Tazobactam Sod (Zosyn Iv) 4.5 gm NOW STAT IV 11/01/16 21:23 11/01/16 21:24 DC 11/01/16 22:06 4.5 GM Acetaminophen (Tylenol Tab) 650 mg Q4H PRN PO 11/01/16 22:00 12/01/16 21:59 11/04/16 23:42 650 MG Piperacillin Sod/ Tazobactam Sod 4.5 gm/Dextrose 120 ml @ 30 mls/hr Q8H IV 11/02/16 02:00 11/02/16 09:10 DC 11/02/16 01:46 30 MLS/HR Levofloxacin 750 mg/Prmx 150 ml @ 100 mls/hr Q24H IV 11/01/16 23:00 11/05/16 13:32 DC 11/04/16 22:48 100 MLS/HR Vancomycin HCl 1600 mg/Sodium Chloride 532 ml @ 200 mls/hr TODAY@0930 ONCE IV 11/02/16 09:30 11/02/16 12:09 DC 11/02/16 09:40 200 MLS/HR Piperacillin Sod/ Tazobactam Sod 3.375 gm/Dextrose 115 ml @ 28.75 mls/ hr Q8@0200,1000,1800 IV 11/02/16 10:00 11/05/16 13:32 DC 11/05/16 09:56 28.75 MLS/HR Vancomycin HCl 1000 mg/Sodium Chloride 270 ml @ 125 mls/hr Q8@0200,1000,1800 IV 11/02/16 18:00 11/05/16 13:32 DC 11/05/16 09:56 125 MLS/HR Doxycycline Hyclate (Vibramycin Cap) 100 mg BID PO 11/02/16 13:00 11/12/16 12:59 11/05/16 09:32 100 MG Acyclovir Sodium 500 mg/Dextrose 110 ml @ 110 mls/hr Q8H IV 11/03/16 11:00 11/03/16 16:08 DC 11/03/16 11:33 110 MLS/HR Filgrastim (Neupogen Sq) 480 mcg TODAY@0800,1200 SC 11/03/16 12:00 11/04/16 09:00 DC 11/04/16 07:48 480 MCG Acyclovir Sodium 700 mg/Dextrose 114 ml @ 110 mls/hr Q8H IV 11/03/16 19:00 11/05/16 13:32 DC 11/05/16 12:15 110 MLS/HR Cyanocobalamin (Vitamin B-12 Tab) 1,000 mcg 1210 ONCE PO 11/05/16 12:10 11/05/16 13:02 DC 11/05/16 14:04 1,000 MCG Filgrastim (Neupogen Sq) 300 mcg DAILY@1400 SQ 11/05/16 14:00 12/05/16 13:59 11/05/16 14:06 300 MCG Assessment and Plan Assessment and Plan: This is a 21 y/o male with neutropenic fever and pancytopenia. He continues to be pancytopenic with intermittent fevers in spite of broad spectrum antibiotic coverage. However, his lower extremity edema and axillary lymph node swelling have significantly gone down. AMADEO, Parvovirus, Toxo, CMV, Bartonella, and other titers are all still pending. Differential still includes hematologic malignancy vs. infectious etiology vs. congenital/acquired illness. Infectious etiologies are still being highly entertained as the cause of the patient's pancytopenia; a biopsy of one of the liver lesions or lymph nodes may further assist in diagnosis and management. 1. Pancytopenia and Neutropenic Fever -Continue broad spectrum antibiotics: Zosyn, Vancomycin, Levaquin, Doxycycline -Continue Acyclovir -ID titers pending (CMV, Parvovirus, EBV serologies. AFB culture and gold interferon test; Toxoplasma antibody, B. henselae pending) -Hepatitis negative; HIV negative; Lyme negative; Monospot negative; influenza negative. -Rheumatologic eval demonstratres normal ESR, low IgM, IgG wnl. -Continue Neupogen SubQ -Monitor CBC -Abdominal imaging demonstrates hepatosplenomegaly with innumerable splenic and hepatic lesions. May bring into question if granulomatous disease is playing a role. -Consult radiology to consider CT-guided liver biopsy. 2. B12 Deficiency -Administer B12 1000mg 3. Elevated LFTs, hypoalbuminemia -Liver U/S demonstrates several lesions - Hepatitis panel negative -Total bilirubin increased, AST, ALT decreasing. -Continue to monitor liver enzymes Attending Attestation: Pt seen/examined, chart reviewed, care plan d/w MS4 Jackeline Myrick; I agree with the escudero components of her documentation except he has hepatosplenomegaly on physical exam. Emre Daigle MD Continued [facility] stay due to: other
[2016-11-05 15:28] VITALS: BP 101/62; PULSE 110; TEMP 39.4; O2SAT 100
[2016-11-05] MEDS: ACETAMINOPHEN 325 MG TAB PO PRN (15:40)
--- NOTE | 2016-11-05 16:28 | PROGRESS NOTE ---
DATE: 11/05/2016 REASON FOR EVALUATION: Fever of unknown origin. SUBJECTIVE: The patient continues to be afebrile with temperature of 39.4 today despite multiple antibiotics. His white count is 2.78 today, hemoglobin 8.4, platelets 103,000 with 2 plus toxic granulation and Dohle bodies polychromasia, teardrop cells and ovalocytes on his peripheral smear suggesting some kind of a toxic process. He does have some right axillary adenopathy and hepatosplenomegaly with a heterogeneous pattern. Multiple studies are pending at this time. I think the abnormal liver tests are probably part of a broader process and the AST is elevated, but the ALT is not indicating that the transaminase elevations are probably coming from a source other than his liver alone. At this point I think it might be prudent to consider doing a biopsy of either his axillary lymph node which would be more easily accessible or his liver under imaging guidance to get some tissue to help see if it will help establish a diagnosis. We will let the infectious disease specialist determine what they would prefer to do. At this point no specific GI intervention is necessary. We will continue to follow the patient during his hospital stay. YE
[2016-11-05 17:50] VITALS: PULSE 100; TEMP 37.1; O2SAT 95
--- NOTE | 2016-11-05 19:08 | Family Medicine Progress Note ---
Progress Note Date of Service Nov 05, 2016. Subjective Pt evaluation today including: conversation w/ patient, physical exam, chart review, lab review Pain: None PO Intake: Good Voiding: no voiding problems Fever overnight 39.5 No symptoms, feels otherwise well Swelling in legs improving Father at bedside Additional Comments: A 10 point review of systems was negative unless stated above. Medications Current Inpatient Medications Medications (Trade) Dose Ordered Sig/Ahsan Route Start Time Stop Time Status Last Admin Dose Admin Acetaminophen (Tylenol Tab) 650 mg Q4H PRN PO 11/01/16 22:00 12/01/16 21:59 11/05/16 15:40 650 MG Al Hydrox/Mg Hydrox/Simethicone (Maalox Max Susp) 15 ml Q4H PRN PO 11/01/16 22:00 12/01/16 21:59 Magnesium Hydroxide (Milk Of Magnesia Susp) 30 ml Q6H PRN PO 11/01/16 22:00 12/01/16 21:59 Ondansetron HCl (Zofran Inj) 4 mg Q6H PRN IV 11/01/16 22:00 12/01/16 21:59 Doxycycline Hyclate (Vibramycin Cap) 100 mg BID PO 11/02/16 13:00 11/12/16 12:59 11/05/16 09:32 100 MG Ioversol (Optiray 320) 111 ml UD PRN IV 11/02/16 12:45 11/06/16 12:44 Cyanocobalamin (Vitamin B-12 Tab) 1,000 mcg QAM PO 11/06/16 08:00 12/06/16 07:59 Filgrastim (Neupogen Sq) 300 mcg DAILY@1400 SQ 11/05/16 14:00 12/05/16 13:59 11/05/16 14:06 300 MCG Objective Vital Signs Date Time Temp Pulse Resp B/P (MAP) Pulse Ox O2 Delivery O2 Flow Rate FiO2 11/05/16 17:50 37.1 100 95 Room Air 11/05/16 16:00 Room Air 11/05/16 15:28 39.4 110 18 101/62 (75) 100 Room Air 11/05/16 09:16 37.8 11/05/16 09:00 Room Air 11/05/16 07:35 39.1 107 16 111/65 (80) 100 Room Air 11/05/16 00:47 37.0 11/05/16 00:00 Room Air 11/04/16 23:55 39.5 116 18 91/50 (64) 100 Room Air 11/04/16 20:00 Room Air Physical Exam General Appearance: WD/WN, no apparent distress Eyes: normal inspection, EOMI ENT: hearing grossly normal, pharynx normal Neck: supple, no adenopathy, no JVD Respiratory/Chest: lungs clear, no respiratory distress Cardiovascular: regular rate, rhythm, no gallop, no murmur Abdomen: normal bowel sounds, + hepatomegaly, + splenomegaly Extremities: + pertinent finding (absence of right axillary lymphadenopathy previously noted) Neurologic/Psychiatric: alert, normal mood/affect, oriented x 3 Skin: normal color, warm/dry, no rash Lymphatic: no adenopathy Laboratory Results Last 24 Hours Test 11/04/16 19:08 11/05/16 00:00 11/05/16 01:32 11/05/16 05:09 White Blood Count 2.88 K/uL 2.78 K/uL Red Blood Count 2.97 M/uL 2.95 M/uL Hemoglobin 8.7 g/dL 8.4 g/dL Hematocrit 25.6 % 25.9 % Mean Corpuscular Volume 86.2 fL 87.8 fL Mean Corpuscular Hemoglobin 29.3 pg 28.5 pg Mean Corpuscular Hemoglobin Concent 34.0 g/dl 32.4 g/dl Platelet Count 106 K/uL 103 K/uL Mean Platelet Volume 9.3 fL 9.4 fL Neutrophils (%) (Auto) 78.1 % 74.1 % Lymphocytes (%) (Auto) 18.1 % 16.5 % Monocytes (%) (Auto) 2.8 % 6.1 % Eosinophils (%) (Auto) 0.0 % 0.4 % Basophils (%) (Auto) 0.3 % 0.4 % Neutrophils # (Auto) 2.25 K/uL 2.06 K/uL Lymphocytes # (Auto) 0.52 K/uL 0.46 K/uL Monocytes # (Auto) 0.08 K/uL 0.17 K/uL Eosinophils # (Auto) 0.00 K/uL 0.01 K/uL Basophils # (Auto) 0.01 K/uL 0.01 K/uL RDW Standard Deviation 55.8 fL 57.5 fL RDW Coefficient of Variation 18.2 % 18.2 % Immature Granulocyte % (Auto) 0.7 % 2.5 % Immature Granulocyte # (Auto) 0.02 K/uL 0.07 K/uL Polychromasia 1+ 1+ Hypochromasia PRESENT Ovalocytes 1+ 1+ Prothrombin Time 15.2 SECONDS 15.5 SECONDS Prothromb Time International Ratio 1.4 1.4 Vancomycin Level Trough 14.1 mcg/ml Toxic Vacuolation 2+ Dohle Bodies 3+ Tear Drop Cells OCCASIONAL Sodium Level 139 mmol/L Potassium Level 4.0 mmol/L Chloride Level 103 mmol/L Carbon Dioxide Level 28 mmol/L Anion Gap 8.0 mmol/L Blood Urea Nitrogen 9 mg/dl Creatinine 0.83 mg/dl Est Creatinine Clear Calc Drug Dose 126.3 ml/min Estimated GFR () 143.7 Estimated GFR (Non- 124.0 BUN/Creatinine Ratio 10.9 Random Glucose 90 mg/dl Calcium Level 7.2 mg/dl Total Bilirubin 1.8 mg/dl Aspartate Amino Transf (AST/SGOT) 97 U/L Alanine Aminotransferase (ALT/SGPT) 78 U/L Alkaline Phosphatase 85 U/L Total Protein 5.2 gm/dl Albumin 2.3 gm/dl Globulin 2.9 gm/dl Albumin/Globulin Ratio 0.8 Test 11/05/16 09:44 Assessment and Plan 21 year old male presenting with new onset lower extremity edema bilaterally and pancytopenic at presentation. Our plan for him is as follows Pancytopenia - DDx: Lymphoproliferative disorder vs viral suppression vs inflammatory/ autoimmune etiologies currently being considered - Continue daily Neupogen injections, 300 mg s.c daily WBC improving; trend daily; ANC does not indicate patient to be on contact precautions at this time - S/p 2 units of PRBCs; Hb in the 8.4; monitor daily; indication to transfuse if < 6.5 or if symptoms of anemia - Continue antibiotics: Zosyn, Levaquin, and Vancomycin. Acyclovir added for viral coverage - Hematological evaluation Peripheral smear - essentially pancytopenic with no overt process; elevated bilirubin may suggest hemolysis Elevated reticulocyte count suggesting increasing BM output and expected elevated RDW Abdominal US suggests liver and splenic lesions: these favor infective process, though malignancy process could not be excluded--> CT scan revealed similar findings and Patient under consideration for possible biopsy of axillary node vs liver tomorrow. Will do U/S right axilla to evaluate size of LN, which cannot be palpated now, as this would be a safer site to biopsy - Infection Panel evaluation Pending Evaluations: CMV, Parvovirus and EBV serologies Quantiferon testing negative; AFB culture pending Toxoplasma antibody pending; B. henselae pending, Anaplasmosis pending, Ehrlichiosis panel HIV is negative; Hepatitis Negative Other infection: Lyme negative, influenza negative - Rheumatological evaluation AMADEO negative ESR normal IgM low, IgG WNL Serum SUNNY for evaluation of sarcoidosis; biopsy would ultimately be required to diagnosed non-caseating granulomas - Nutritional Evaluation Iron studies: normal iron, elevated ferritin and TIBC; ferritin elevation may reflect acute phase reactant Normal B12 and Folate - Endocrine Normal TSH - Toxic: pending lead level Hyperferritinemia - Work up as above - Likely to reflect acute phase reactant Elevated LFT; hypoalbuminemia and Coag - Liver U/S notes innumerable hepatic and splenic lesions - INR continues to remain slightly elevated at 1.4 but stable - Mild transaminitis stable currently - Hepatitis panel negative - Possible liver biopsy tomorrow Bilateral pedal edema- improving - Improving - Low pre-albumin - Possibly 2/2 acute hepatic dysfunction DVT Prophylaxis - SCD - Physiologically anticoagulated at this time; no pharmacological prophylaxis Disposition - Med/Surg - Needs to remain in hospital due to neutropenia and need for CBC monitoring - At this point the patient can remain here for continued evaluation. No indication to transfer to tertiary care centre. Discussion currently underway regarding biopsy of right axillary node (difficult to detect now) or the liver. Resident Physician Supervision Note: I was present with PGY2 Dr. Caden Cates during the history and exam. I discussed the case with the resident and agree with the findings and plan as documented in the note. Any exceptions or clarifications are listed here: none. Pt with ongoing fever but denies feeling poorly. Denies sore throat, cough, congestion, n/v/d, abd pain. Denies myalgias. Admits to some element of weight loss for some time previous to this hospitalization. Also admits to lack of optimal diet due to finances, etc. VSS except ongoing fever gen - thin but nontoxic appearing mouth - no mucositis neck - no lymphadenopathy axillae - right axillary lymphadenopathy present heart - tachy, s1, s2 lungs - CTA b/l abd - hepatosplenomegaly present, no ascites ext - trace edema b/l musculo - no synovitis of any joint labs - numerous viral titers pending blood cx's negative ongoing pancytopenia Cr normal LFTs with hypoalbuminemia; minimal elevation t. bili, minimal elevation AST A/P: 1. pancytopenia - extensive eval to date unrevealing but unlikely due to bacterial source. viral cause possible. r/o malignancy, autoimmune, granulomatous disease etiologies. agree with bx of liver or axillary node for definitive dx. will coordinate with radiology. 2. fever - see above. all bacterial causes negative to date. agree with ID to d/c most antibiotics at this time. treat symptoms. agree with SUNNY level for sarcoid. 3. hypoalbuminemia - encourage improved diet; consider boost. 4. low-normal b12 level - doubt cause of #1, but more reflective of selective diet outside of hospital. start b12 1000mcg orally daily. hopefully bx of liver or lymph node in AM. reasonable to hold off on tertiary care center transfer at this time. Emre Daigle MD Continued [facility] stay due to: other (pancytopenia work-up) Discharge planning: uncertain
--- NOTE | 2016-11-05 20:08 | DIAGNOSTIC IMAGING REPORT ---
Ultrasound right axilla EXTREMITY NONVASCULAR LIMITED CLINICAL HISTORY: pli do today as need to determing plan for axillary vs liver biopsy lymph nodes TECHNIQUE: Ultrasound COMPARISON STUDY: None FINDINGS: Ultrasonic evaluation of the right axilla confirms the presence of several enlarged lymph nodes. Largest measures approximately 4 x 3 cm. IMPRESSION: Significant right axillary adenopathy. Largest smith dimension is 4 x 3 cm. Electronically signed by: Azeem Macias M.D. 11/05/2016 8:07 PM Dictated Date/Time: 11/05/2016 8:06 PM
[2016-11-06] VITALS (8 sets, daily range): BP systolic 101–111; BP diastolic 59–83; PULSE 111–129; TEMP 36.8–39.9; O2SAT 95–100
[2016-11-06] MEDS: ACETAMINOPHEN 325 MG TAB PO PRN ×4 (00:09→21:07)
[2016-11-06 05:58] LABS: HEMATOCRIT 24.9 % (42-52); MEAN CELL VOLUME 89.9 fL (80-100); MEAN CORPUSCULAR HEMOGLOBIN 29.6 pg (25-34); MEAN CORPUSCULAR HGB CONC 32.9 g/dl (32-36); RED BLOOD COUNT 2.77 M/uL (4.7-6.1); WHITE BLOOD COUNT 2.28 K/uL (4.8-10.8)
[2016-11-06 06:00] LABS: MEAN PLATELET VOLUME 9.9 fL (7.4-10.4); PLATELET COUNT 91 K/uL (130-400)
[2016-11-06 06:23] LABS: INR 1.4 (0.9-1.1); PROTHROMBIN TIME (PATIENT) 15.4 SECONDS (9.0-12.0)
[2016-11-06 06:32] LABS: BUN/CREATININE RATIO 13.1 (10-20); CALCIUM 7.4 mg/dl (8.5-10.1); CREATININE 0.85 mg/dl (0.60-1.40); POTASSIUM 4.1 mmol/L (3.5-5.1)
[2016-11-06 06:34] LABS: ALB/GLOB RATIO 0.8 (0.9-2)
[2016-11-06 07:10] LABS: BASO % 0.4 %; BASO ABS # 0.01 K/uL (0-0.2); COMPLETE YES; DOHLE BODIES 3+; EOS % 0.4 %; GIANT PLATELETS 1+; IG% 0.4 %; LYMPH % 17.5 %; MONO % 8.3 %; OVALOCYTES 1+; POLYCHROMASIA 1+; SMUDGE CELLS PRESENT; VACUOLIZATION 2+
[2016-11-06] MEDS: CYANOCOBALAMIN 500 MCG TAB (VIT B-12) PO SCH (07:56)
[2016-11-06] MEDS: DOXYCYCLINE HYCLATE 100 MG CAP PO SCH ×2 (07:56→19:35)
--- NOTE | 2016-11-06 10:01 | Family Medicine Progress Note ---
Progress Note Date of Service Nov 06, 2016. Subjective Pt evaluation today including: conversation w/ patient, physical exam, chart review, lab review Pain: None PO Intake: Good Voiding: no voiding problems Continues to have fevers overnight; off antibiotics Father at bedside No other acute issues Patient denies dysuria, urinary frequency No headache, neck stiffness or photophobia No shortness of breath, coughing or wheezing Additional Comments: A 10 point review of systems was negative unless stated above. Medications Current Inpatient Medications Medications (Trade) Dose Ordered Sig/Ahsan Route Start Time Stop Time Status Last Admin Dose Admin Acetaminophen (Tylenol Tab) 650 mg Q4H PRN PO 11/01/16 22:00 12/01/16 21:59 11/06/16 07:55 650 MG Al Hydrox/Mg Hydrox/Simethicone (Maalox Max Susp) 15 ml Q4H PRN PO 11/01/16 22:00 12/01/16 21:59 Magnesium Hydroxide (Milk Of Magnesia Susp) 30 ml Q6H PRN PO 11/01/16 22:00 12/01/16 21:59 Ondansetron HCl (Zofran Inj) 4 mg Q6H PRN IV 11/01/16 22:00 12/01/16 21:59 Doxycycline Hyclate (Vibramycin Cap) 100 mg BID PO 11/02/16 13:00 11/12/16 12:59 11/06/16 07:56 100 MG Ioversol (Optiray 320) 111 ml UD PRN IV 11/02/16 12:45 11/06/16 12:44 Cyanocobalamin (Vitamin B-12 Tab) 1,000 mcg QAM PO 11/06/16 08:00 12/06/16 07:59 11/06/16 07:56 1,000 MCG Filgrastim (Neupogen Sq) 300 mcg DAILY@1400 SQ 11/05/16 14:00 12/05/16 13:59 Future Hold 11/05/16 14:06 300 MCG Acetaminophen 650 mg/Empty Bag 65 ml @ 260 mls/hr Q6H PRN IV 11/05/16 19:15 12/05/16 19:14 Objective Vital Signs Date Time Temp Pulse Resp B/P (MAP) Pulse Ox O2 Delivery O2 Flow Rate FiO2 11/06/16 09:36 Room Air 11/06/16 07:50 38.9 111 18 110/83 (92) 100 Room Air 11/06/16 06:02 37.4 11/06/16 00:11 39.9 123 14 101/59 (73) 95 Room Air 11/05/16 23:59 Room Air 11/05/16 17:50 37.1 100 95 Room Air 11/05/16 16:00 Room Air 11/05/16 15:28 39.4 110 18 101/62 (75) 100 Room Air Physical Exam General Appearance: WD/WN, no apparent distress, + thin Eyes: normal inspection, EOMI ENT: hearing grossly normal, pharynx normal Neck: supple, no adenopathy, no JVD Respiratory/Chest: lungs clear, no respiratory distress Cardiovascular: no gallop, no murmur, + tachycardia Abdomen: normal bowel sounds, non tender, soft, + hepatomegaly, + splenomegaly Extremities: non-tender, no pedal edema Neurologic/Psychiatric: alert, normal mood/affect, oriented x 3 Skin: normal color, warm/dry, no rash Lymphatic: no adenopathy Laboratory Results Last 24 Hours Test 11/06/16 05:24 White Blood Count 2.28 K/uL Red Blood Count 2.77 M/uL Hemoglobin 8.2 g/dL Hematocrit 24.9 % Mean Corpuscular Volume 89.9 fL Mean Corpuscular Hemoglobin 29.6 pg Mean Corpuscular Hemoglobin Concent 32.9 g/dl Platelet Count 91 K/uL Mean Platelet Volume 9.9 fL Neutrophils (%) (Auto) 73.0 % Lymphocytes (%) (Auto) 17.5 % Monocytes (%) (Auto) 8.3 % Eosinophils (%) (Auto) 0.4 % Basophils (%) (Auto) 0.4 % Neutrophils # (Auto) 1.66 K/uL Lymphocytes # (Auto) 0.40 K/uL Monocytes # (Auto) 0.19 K/uL Eosinophils # (Auto) 0.01 K/uL Basophils # (Auto) 0.01 K/uL RDW Standard Deviation 60.0 fL RDW Coefficient of Variation 18.7 % Immature Granulocyte % (Auto) 0.4 % Immature Granulocyte # (Auto) 0.01 K/uL Smudge Cells PRESENT Toxic Vacuolation 2+ Dohle Bodies 3+ Giant Platelets 1+ Polychromasia 1+ Ovalocytes 1+ Prothrombin Time 15.4 SECONDS Prothromb Time International Ratio 1.4 Sodium Level 138 mmol/L Potassium Level 4.1 mmol/L Chloride Level 103 mmol/L Carbon Dioxide Level 30 mmol/L Anion Gap 5.0 mmol/L Blood Urea Nitrogen 11 mg/dl Creatinine 0.85 mg/dl Est Creatinine Clear Calc Drug Dose 123.3 ml/min Estimated GFR () 142.3 Estimated GFR (Non- 122.8 BUN/Creatinine Ratio 13.1 Random Glucose 86 mg/dl Calcium Level 7.4 mg/dl Total Bilirubin 1.5 mg/dl Aspartate Amino Transf (AST/SGOT) 96 U/L Alanine Aminotransferase (ALT/SGPT) 74 U/L Alkaline Phosphatase 87 U/L Total Protein 5.1 gm/dl Albumin 2.2 gm/dl Globulin 2.9 gm/dl Albumin/Globulin Ratio 0.8 Assessment and Plan 21 year old male presenting with new onset lower extremity edema bilaterally and pancytopenic at presentation. He is subjectively feeling well at this time with no new issues though he has remained febrile over the past 24 hours. Etiology is unclear at this time though will get biopsy done today. Our plan for him is as follows: Pancytopenia - DDx: Lymphoproliferative disorder vs viral suppression vs inflammatory/ autoimmune etiologies currently being considered - WBC 2.2 today; slightly reduced from 2.78 yesterday; follow daily - S/p 2 units of PRBCs; Hb in the 8.4; monitor daily; indication to transfuse if < 6.5 or if symptoms of anemia; Hb 8.2 today and stable; no indication to transfuse at this time - Hematological evaluation Right axillary U/S done yesterday showing LNs amenable to U/S guided-FNA; to be done today with radiology Peripheral smear - essentially pancytopenic with no overt process; elevated bilirubin may suggest hemolysis Elevated reticulocyte count suggesting increasing BM output and expected elevated RDW Abdominal US suggests liver and splenic lesions: these favor infective process, though malignancy process could not be excluded--> CT scan revealed similar findings and - Infection Panel evaluation Quantiferon testing negative; AFB culture pending Toxoplasma antibody pending; B. henselae pending, Anaplasmosis pending, Ehrlichiosis panel pending HIV is negative; Hepatitis Negative Lyme negative, influenza negative Pending Evaluations: CMV, Parvovirus and EBV serologies - Rheumatological evaluation AMADEO negative; ESR normal IgM low, IgG WNL Serum SUNNY for evaluation of sarcoidosis pending; biopsy axillary LN as above - Nutritional Evaluation Iron studies: normal iron, elevated ferritin and TIBC; ferritin elevation may reflect acute phase reactant Normal B12 and Folate - Endocrine Normal TSH - Toxic: pending lead level Neutropenic Fever - Discontinued Nupogen at this time Will watch for WBC count to improve without growth factor support - Remains febrile with temperatures of 39.1, 39.4, 39.0 - Discussed case with ID; bacterial etiology unlikely; continue to hold on IV antibiotics - Continue Doxycycline coverage for possible tick-borne illness Hepatic Dysfunction - As noted by Transaminitis; hypoalbuminemia and Hypercoagulability - Infection vs Infiltration (per lesions on CT) - INR 1.4 today stable - Mild transaminitis stable currently; AST 75 and ALT 87 today; unchanged over the past 24 hours - Hepatitis panel negative - Daily CMP Bilateral pedal edema - Improving - Link to pancytopenia unclear at this time juncture; possibly 2/2 hepatic dysfunction DVT Prophylaxis - SCD - Physiologically anticoagulated at this time; no pharmacological prophylaxis Disposition - Med/Surg - Needs to remain in hospital due to neutropenia and need for CBC monitoring - At this point the patient can remain here for continued evaluation. No indication to transfer to tertiary care centre. Labs for infective etiology pending - Will have U/S guided right axillary biopsy today Resident Physician Supervision Note: I was present with PGY2 Dr. Caden Cates during the history and exam. I discussed the case with the resident and agree with the findings and plan as documented in the note. Any exceptions or clarifications are listed here: none. s/p axillary lymph node FNA today. Tolerated well. NO NEW COMPLAINTS (no sore throat, cough, congestion, pains, etc). Still with fever. VSS except ongoing fever and tachycardia gen - thin but nontoxic appearing mouth - no mucositis neck - no lymphadenopathy heart - tachy, s1, s2 lungs - CTA b/l abd - hepatosplenomegaly (mild), no ascites ext - trace edema b/l labs - IgM parvo and EBV negative blood cx's negative ongoing pancytopenia Cr normal LFTs with hypoalbuminemia; minimal elevation t. bili, minimal elevation AST - slightly improved from previous A/P: 1. pancytopenia - extensive eval to date unrevealing but unlikely due to bacterial source. viral cause still possible. r/o malignancy, autoimmune, granulomatous disease etiologies with axillary lymph node FNA today. daily cbc. neupogen as needed. awaiting SUNNY level (literature suggests sarcoid can be rarely associated with pancytopenia). 2. fever - see above. all bacterial causes negative to date. agree with ID to cont off all abx except doxy pending tick-borne disease titers. treat symptoms. agree with SUNNY level for sarcoid. 3. hypoalbuminemia - encourage improved diet. 4. low-normal b12 level - doubt cause of #1, but more reflective of selective diet outside of hospital. cont b12 1000mcg orally daily. reasonable to hold off on tertiary care center transfer at this time. father updated at bedside Emre Daigle MD
--- NOTE | 2016-11-06 13:49 | Medical Student: [facility] ---
Med Student Progress Note Date of Service Nov 06, 2016. Subjective Pt evaluation today including: conversation w/ patient Voiding: no voiding problems This is a 21 year old [place] male being evaluated for pancytopenia and neutropenic fevers. He is feeling well overall today and has no complaints. He continued to have fevers overnights. He has been taken off antibiotics at this point except for Doxy. He is scheduled to undergo lymph node biopsy this afternoon. Review of Systems Constitutional: + fever Respiratory: No cough Cardiac: No chest pain, No orthopnea Musculoskeletal: No joint pain Male : No dysuria Objective Vital Signs Date Time Temp Pulse Resp B/P (MAP) Pulse Ox O2 Delivery O2 Flow Rate FiO2 11/06/16 09:36 Room Air 11/06/16 07:50 38.9 111 18 110/83 (92) 100 Room Air 11/06/16 06:02 37.4 11/06/16 00:11 39.9 123 14 101/59 (73) 95 Room Air 11/05/16 23:59 Room Air 11/05/16 17:50 37.1 100 95 Room Air 11/05/16 16:00 Room Air 11/05/16 15:28 39.4 110 18 101/62 (75) 100 Room Air Physical Exam General Appearance: WD/WN, no apparent distress Neck: supple, no adenopathy, thyroid normal Respiratory/Chest: chest non-tender, lungs clear, normal breath sounds, no respiratory distress Cardiovascular: regular rate, rhythm, no edema, no gallop, no JVD, no murmur Abdomen: normal bowel sounds, non tender, soft, + hepatomegaly, + splenomegaly Extremities: normal range of motion, + pedal edema (bilateral 1+) Neurologic/Psychiatric: no motor/sensory deficits, alert, normal mood/affect, oriented x 3 Laboratory Results Last 24 Hours Test 11/06/16 05:24 White Blood Count 2.28 K/uL Red Blood Count 2.77 M/uL Hemoglobin 8.2 g/dL Hematocrit 24.9 % Mean Corpuscular Volume 89.9 fL Mean Corpuscular Hemoglobin 29.6 pg Mean Corpuscular Hemoglobin Concent 32.9 g/dl Platelet Count 91 K/uL Mean Platelet Volume 9.9 fL Neutrophils (%) (Auto) 73.0 % Lymphocytes (%) (Auto) 17.5 % Monocytes (%) (Auto) 8.3 % Eosinophils (%) (Auto) 0.4 % Basophils (%) (Auto) 0.4 % Neutrophils # (Auto) 1.66 K/uL Lymphocytes # (Auto) 0.40 K/uL Monocytes # (Auto) 0.19 K/uL Eosinophils # (Auto) 0.01 K/uL Basophils # (Auto) 0.01 K/uL RDW Standard Deviation 60.0 fL RDW Coefficient of Variation 18.7 % Immature Granulocyte % (Auto) 0.4 % Immature Granulocyte # (Auto) 0.01 K/uL Smudge Cells PRESENT Toxic Vacuolation 2+ Dohle Bodies 3+ Giant Platelets 1+ Polychromasia 1+ Ovalocytes 1+ Prothrombin Time 15.4 SECONDS Prothromb Time International Ratio 1.4 Sodium Level 138 mmol/L Potassium Level 4.1 mmol/L Chloride Level 103 mmol/L Carbon Dioxide Level 30 mmol/L Anion Gap 5.0 mmol/L Blood Urea Nitrogen 11 mg/dl Creatinine 0.85 mg/dl Est Creatinine Clear Calc Drug Dose 123.3 ml/min Estimated GFR () 142.3 Estimated GFR (Non- 122.8 BUN/Creatinine Ratio 13.1 Random Glucose 86 mg/dl Calcium Level 7.4 mg/dl Total Bilirubin 1.5 mg/dl Aspartate Amino Transf (AST/SGOT) 96 U/L Alanine Aminotransferase (ALT/SGPT) 74 U/L Alkaline Phosphatase 87 U/L Total Protein 5.1 gm/dl Albumin 2.2 gm/dl Globulin 2.9 gm/dl Albumin/Globulin Ratio 0.8 Assessment and Plan Assessment and Plan: This is a 21 year old male being evaluated for pancytopenia and recurrent neutropenic fevers. 1. Pancytopenia and Neutropenic Fever -Antibiotics have been discontinued except for Doxycycline, which will be kept to cover any lyme-borne illnesses such as erlichiosis, anaplasmosis, lymes disease. -Discontinue Acyclovir -ID titers pending (CMV, Parvovirus, EBV serologies. AFB culture and gold interferon test; Toxoplasma antibody, B. henselae pending) -Hepatitis negative; HIV negative; Lyme negative; Monospot negative; influenza negative. -Rheumatologic eval demonstratres normal ESR, low IgM, IgG wnl. -Continue Neupogen SubQ -Monitor CBC -Abdominal imaging demonstrates hepatosplenomegaly with innumerable splenic and hepatic lesions. May bring into question if granulomatous disease is playing a role. Serum SUNNY is pending. - Right axillary lymph node biopsy scheduled for this afternoon. Largest lymph node on U/S is 4x3cm. 2. Elevated LFTs, hypoalbuminemia -Liver U/S demonstrates several lesions - Hepatitis panel negative -AST, ALT, T. Mitesh trending down. -Continue to monitor liver enzymes 3. B12 Deficiency -Continue B12 1000mg Continued [facility] stay due to: other (pancytopenia work-up) Discharge planning: uncertain
[2016-11-06 15:10] LABS: CYTOMEGALOVIRUS IGG AB <0.60 U/ML; EBV EARLY ANTIGEN AB <0.91 INDEX; EPSTEIN BARR VIR CAPSID IGG 4.01 INDEX; PARVOVIRUS IgG INDEX 4.3 (<0.9); PARVOVIRUS IgM INDEX 0.1 (<0.9)
--- NOTE | 2016-11-06 15:31 | DIAGNOSTIC IMAGING REPORT ---
Ultrasound-guided right axillary lymph node biopsy (fine-needle aspiration x3, core biopsy x2) CLINICAL HISTORY: Right axillary lymphadenopathy COMPARISON STUDY: Ultrasound dated 11/05/2016 FINDINGS: A timeout was performed. The risks the procedure were explained the patient and informed consent was obtained. Patient was prepped in sterile fashion. The skin was anesthetized 1% lidocaine. 2 initial passes with a 25-gauge needle under ultrasound guidance were performed into enlarged right axillary lymph nodes. Initial pathologic review indicates material. This reason, 2 20-gauge 1 cm throw ultrasound core biopsies were obtained. Again material was scanned. A third 25-gauge ultrasound-guided fine no aspiration biopsy was performed utilizing tube suction. This final pass yielded more material. The material was sent for flow cytometry. IMPRESSION: Final aspiration biopsy and core biopsies were obtained of enlarged right axillary lymph nodes. Material was scanned. Final pathology is pending. Electronically signed by: Srikanth Hester M.D. 11/06/2016 3:29 PM Dictated Date/Time: 11/06/2016 3:22 PM
--- NOTE | 2016-11-06 15:35 | Progress Note ---
Subjective Date of Service: Nov 06, 2016. Subjective cultures remain negative, still with fevers. for biopsy today. on doxy for ? tick borne illness. afb blood culture negative, IGRA negative as well. Problem List Medical Problems: (1) Elevated liver enzymes Status: Acute (2) Swelling of lower extremity Status: Acute Objective Vital Signs Date Time Temp Pulse Resp B/P (MAP) Pulse Ox O2 Delivery O2 Flow Rate FiO2 11/06/16 09:36 Room Air 11/06/16 07:50 38.9 111 18 110/83 (92) 100 Room Air 11/06/16 06:02 37.4 11/06/16 00:11 39.9 123 14 101/59 (73) 95 Room Air 11/05/16 23:59 Room Air 11/05/16 17:50 37.1 100 95 Room Air 11/05/16 16:00 Room Air Laboratory Results Item Value Date Time Acid Fast Stain - Final Resulted 11/02/16 1455 Blood Blood Culture - Preliminary Resulted 11/01/16 1945 Blood NO GROWTH TO DATE. Blood Culture - Preliminary Resulted 11/01/16 1930 Blood NO GROWTH TO DATE. Last 24 Hours Test 11/06/16 05:24 11/06/16 14:35 White Blood Count 2.28 K/uL Red Blood Count 2.77 M/uL Hemoglobin 8.2 g/dL Hematocrit 24.9 % Mean Corpuscular Volume 89.9 fL Mean Corpuscular Hemoglobin 29.6 pg Mean Corpuscular Hemoglobin Concent 32.9 g/dl Platelet Count 91 K/uL Mean Platelet Volume 9.9 fL Neutrophils (%) (Auto) 73.0 % Lymphocytes (%) (Auto) 17.5 % Monocytes (%) (Auto) 8.3 % Eosinophils (%) (Auto) 0.4 % Basophils (%) (Auto) 0.4 % Neutrophils # (Auto) 1.66 K/uL Lymphocytes # (Auto) 0.40 K/uL Monocytes # (Auto) 0.19 K/uL Eosinophils # (Auto) 0.01 K/uL Basophils # (Auto) 0.01 K/uL RDW Standard Deviation 60.0 fL RDW Coefficient of Variation 18.7 % Immature Granulocyte % (Auto) 0.4 % Immature Granulocyte # (Auto) 0.01 K/uL Smudge Cells PRESENT Toxic Vacuolation 2+ Dohle Bodies 3+ Giant Platelets 1+ Polychromasia 1+ Ovalocytes 1+ Prothrombin Time 15.4 SECONDS Prothromb Time International Ratio 1.4 Sodium Level 138 mmol/L Potassium Level 4.1 mmol/L Chloride Level 103 mmol/L Carbon Dioxide Level 30 mmol/L Anion Gap 5.0 mmol/L Blood Urea Nitrogen 11 mg/dl Creatinine 0.85 mg/dl Est Creatinine Clear Calc Drug Dose 123.3 ml/min Estimated GFR () 142.3 Estimated GFR (Non- 122.8 BUN/Creatinine Ratio 13.1 Random Glucose 86 mg/dl Calcium Level 7.4 mg/dl Total Bilirubin 1.5 mg/dl Aspartate Amino Transf (AST/SGOT) 96 U/L Alanine Aminotransferase (ALT/SGPT) 74 U/L Alkaline Phosphatase 87 U/L Total Protein 5.1 gm/dl Albumin 2.2 gm/dl Globulin 2.9 gm/dl Albumin/Globulin Ratio 0.8 Assessment and Plan (1) Neutropenic fever Assessment & Plan: follow labs/biopsy results. continue doxy for now (2) Elevated liver enzymes Continued [facility] stay due to: other (pancytopenia work-up) Discharge planning: uncertain
--- NOTE | 2016-11-06 17:53 | GASTROENTEROLOGY PROGRESS NOTE ---
DATE: 11/06/2016 SUBJECTIVE: The patient's chart was reviewed in detail. Mr. Mack is a 21-year-old male who was born and raised in [place], although did travel to [facility] 1 year ago for several weeks. The patient was admitted for what was essentially peripheral edema and fever of unknown origin. Today he has had an extensive workup including a CT chest, abdomen and pelvis imaging, extensive laboratory testing. CT imaging of the chest and abdomen essentially reflects adenopathy in the periportal region as well as in the right axillary region and right subdiaphragmatic area. The patient has had a modest weight loss during the onset of these symptoms but actually presents with no specific pain or localizing features other than the peripheral edema described above. Multiple infectious etiologies including TB, HIV and other pathogens have been excluded by serum testing. Blood cultures were unrevealing. Blood cultures showed no growth to date. There is an AFB blood cx for which cultures are pending. The patient denies any features and any time of diarrhea, nausea, vomiting, abdominal pain, food aversion, melena or bright red blood per rectum. He did report that he has reasonable urine output during this event and was not generally aware of any fever, although occasionally he would feel cool over the last several days. MEDICATIONS: He is on several medications including Zofran, doxycycline, Tylenol and B12 orally; however, any antibiotics which included antivirals with acyclovir, Zosyn, vancomycin, and levofloxacin were initially started, but now discontinued. REVIEW OF SYSTEMS: Otherwise noncontributory. PHYSICAL EXAMINATION: VITAL SIGNS: Today he still remains with intermittent fevers. At midnight on November 06 he was 39.9, at 7:00 this morning was 38.9; blood pressure is 110/83; pulse ox 100 on room air; heart rate is 111; respiratory rate is 18. HEART: Normal S1, S2, although slightly tachycardic on exam. LUNGS: Clear to auscultation. ABDOMEN: Soft, minimally distended with minimal tympany. There is no rebound or guarding. I do not appreciate splenomegaly, although liver edge may be palpated. There is no evidence of shifting fluid or tense ascites. EXTREMITIES: Without clubbing, cyanosis. RECTAL: Deferred at this time. The patient is going for right axillary lymph node biopsies this afternoon and hopefully this will shed some light on this case. This pattern of fever of unknown origin along with the peripheral edema that he experienced is presently of undetermined origin. Many of the markers have all returned negative or in process of pending. TB is not identified by quantferon gold. I made the following recommendations. Await the results of the lymph node biopsy and its histology. In the differential remains lymphoma and possibly leukemia process. These may also represent reactive lymph nodes, although a specific infectious etiology is not identified, inflammatory sources such as sarcoid are also being eliminated. If this is unrevealing, consideration for other sources of fever of unknown origin including Q fever (Coxiella) may be needed and ultimately a liver biopsy given the hepatomegaly identified may be useful. In the absence of any significant GI symptoms, I am not sure that upper endoscopy or colonoscopy would be beneficial presently; however, if the fever process continues and the workup remains unrevealing, then upper endoscopy for small bowel biopsies to exclude any sources of protein wasting may be beneficial as well as inflammatory or infiltrative processes. In addition for patient's continued workup, a serum protein electrophoresis, immunoelectrophoresis, and urine immunoelectrophoresis may be helpful. AMADEO is negative and only IgM is slightly decreased. Exclusion of proteinuria . Further recommendation to follow. Will follow along with you. DAMEOND
[2016-11-06] MEDS ORDERED: IBUPROFEN 200 MG TAB PO STA (23:13)
[2016-11-07 05:48] LABS: HEMATOCRIT 24.3 % (42-52); MEAN CORPUSCULAR HEMOGLOBIN 28.6 pg (25-34); MEAN CORPUSCULAR HGB CONC 32.1 g/dl (32-36); RED BLOOD COUNT 2.73 M/uL (4.7-6.1)
[2016-11-07 05:57] LABS: INR 1.4 (0.9-1.1)
[2016-11-07 06:01] LABS: MEAN PLATELET VOLUME 10.3 fL (7.4-10.4); PLATELET COUNT 95 K/uL (130-400)
[2016-11-07 06:19] LABS: BUN/CREATININE RATIO 15.2 (10-20); CALCIUM 7.5 mg/dl (8.5-10.1); CREATININE 0.78 mg/dl (0.60-1.40); POTASSIUM 3.8 mmol/L (3.5-5.1)
[2016-11-07 06:22] LABS: ALB/GLOB RATIO 0.8 (0.9-2)
[2016-11-07 07:07] LABS: LARGE PLATELETS 1+
[2016-11-07 07:08] LABS: BASO % 0.6 %; BASO ABS # 0.01 K/uL (0-0.2); COMPLETE YES; EOS % 1.3 %; IG% 1.3 %; LYMPH % 19.4 %; LYMPH ABS # 0.31 K/uL (1.2-3.4); NEUT % 67.4 %
[2016-11-07 07:18] LABS: HYPOCHROMIA PRESENT; POIKILOCYTOSIS PRESENT; POLYCHROMASIA 1+
[2016-11-07 07:56] VITALS: BP 93/63; PULSE 82; TEMP 36.7; O2SAT 99
[2016-11-07] MEDS: DOXYCYCLINE HYCLATE 100 MG CAP PO SCH ×2 (08:16→19:21)
[2016-11-07] MEDS: CYANOCOBALAMIN 500 MCG TAB (VIT B-12) PO SCH (08:16)
[2016-11-07 12:00] VITALS: TEMP 39.1
[2016-11-07] MEDS ORDERED: NSS + 20MEQ KCL 1000ML 1,000 ML IV ONE (12:00)
[2016-11-07] MEDS: ACETAMINOPHEN 325 MG TAB PO PRN ×2 (12:15→17:34)
[2016-11-07 14:55] LABS: LEAD BLOOD LESS THAN 1 MCG/DL (0-9)
[2016-11-07 15:06] VITALS: BP 91/58; PULSE 104; TEMP 37.3; O2SAT 99
[2016-11-07 16:00] VITALS: O2SAT 99
--- NOTE | 2016-11-07 16:07 | Progress Note ---
Subjective Date of Service: Nov 07, 2016. Subjective s/p lymph node biopsy, aspirate negative, biopsy tissue not consistent with node , suggest repeat. Remains with high grade fevers, tmax 39.9. Remains on doxy pending additional tick borne studies. had g csf yesterday but wbc now 1.6. AST remains elevated at 95.. Bilirubin remains elevated as well. 11/01 blood cultures are negative and final. 11/05 cultures negative to date. AFB blood culture pending but smear negative, IGRA negative. Emperic abx stopped. Bartonella and tick borne serologies pending. Multiple studies for infection performed, to date pt is negative for Lyme, Flu, TB (negative IGRA), HIV, Hepatitis, CMV, toxo , Tyler, EBV IGG +, IGM negative, Parvo IgM negative, blood cultures negative. SUNNY 80, unclear significance. Problem List Medical Problems: (1) Elevated liver enzymes Status: Acute (2) Swelling of lower extremity Status: Acute Objective Vital Signs Date Time Temp Pulse Resp B/P (MAP) Pulse Ox O2 Delivery O2 Flow Rate FiO2 11/07/16 15:06 37.3 104 18 91/58 (69) 99 Room Air 11/07/16 14:05 Room Air 11/07/16 12:00 39.1 11/07/16 07:56 36.7 82 20 93/63 (73) 99 Room Air 11/07/16 00:00 Room Air 11/06/16 23:00 38.1 129 20 103/74 (84) 97 Room Air 11/06/16 21:00 38.2 11/06/16 20:00 Room Air 11/06/16 17:50 37.3 11/06/16 16:11 38.9 112 18 111/67 (82) 99 Room Air Laboratory Results Item Value Date Time Blood Culture - Preliminary Resulted 11/05/161933 Blood NO GROWTH TO DATE. Blood Culture - Preliminary Resulted 11/05/161925 Blood NO GROWTH TO DATE. Acid Fast Stain - Final Resulted 11/02/16 1455 Blood Blood Culture - Final Complete 11/01/16 194 Blood NO GROWTH Blood Culture - Final Complete 11/01/16 1930 Blood NO GROWTH Last 24 Hours Test 11/07/16 05:20 White Blood Count 1.60 K/uL Red Blood Count 2.73 M/uL Hemoglobin 7.8 g/dL Hematocrit 24.3 % Mean Corpuscular Volume 89.0 fL Mean Corpuscular Hemoglobin 28.6 pg Mean Corpuscular Hemoglobin Concent 32.1 g/dl Platelet Count 95 K/uL Mean Platelet Volume 10.3 fL Neutrophils (%) (Auto) 67.4 % Lymphocytes (%) (Auto) 19.4 % Monocytes (%) (Auto) 10.0 % Eosinophils (%) (Auto) 1.3 % Basophils (%) (Auto) 0.6 % Neutrophils # (Auto) 1.08 K/uL Lymphocytes # (Auto) 0.31 K/uL Monocytes # (Auto) 0.16 K/uL Eosinophils # (Auto) 0.02 K/uL Basophils # (Auto) 0.01 K/uL RDW Standard Deviation 59.4 fL RDW Coefficient of Variation 18.7 % Immature Granulocyte % (Auto) 1.3 % Immature Granulocyte # (Auto) 0.02 K/uL Large Platelets 1+ Polychromasia 1+ Hypochromasia PRESENT Poikilocytosis PRESENT Prothrombin Time 15.0 SECONDS Prothromb Time International Ratio 1.4 Sodium Level 138 mmol/L Potassium Level 3.8 mmol/L Chloride Level 102 mmol/L Carbon Dioxide Level 31 mmol/L Anion Gap 5.0 mmol/L Blood Urea Nitrogen 12 mg/dl Creatinine 0.78 mg/dl Est Creatinine Clear Calc Drug Dose 134.4 ml/min Estimated GFR () 147.5 Estimated GFR (Non- 127.2 BUN/Creatinine Ratio 15.2 Random Glucose 89 mg/dl Calcium Level 7.5 mg/dl Total Bilirubin 1.5 mg/dl Aspartate Amino Transf (AST/SGOT) 95 U/L Alanine Aminotransferase (ALT/SGPT) 70 U/L Alkaline Phosphatase 104 U/L Total Protein 5.1 gm/dl Albumin 2.2 gm/dl Globulin 2.9 gm/dl Albumin/Globulin Ratio 0.8 Assessment and Plan (1) Neutropenic fever Assessment & Plan: no clear infectious etiology noted. If tick borne (anaplasma ) would expect rapid resolution of symptoms/pancytopenia with doxy. has had multiple days of doxy with no resolution, in fact counts dropping even with g csf. All infectious workup negative to this point. Additionally, he has had reported wt loss and has a prealbumin of 5 which in unlikely in a 21 year old. Ferritin level markedly elevated and INR mildly elevated at 1.4 which speaks to chronic condition rather than acute viral illness. pt was in [place], could also consider mosquito borne illness, but this is much less likely as travel was one year ago. Nothing infectious noted on perph smear. Spoke with primary, lymph node aspirate unrevealing and tissue not consistent with lymph node. Suggest either liver biopsy or biospy of splenic lesion. bone marrow biopsy consideration as well. will continue on doxy for now but again suspect his symptoms/pancytopenia would resolve by now. Also dont feel acute tick borne illness would cause low prealbumin. (2) Elevated liver enzymes Continued [facility] stay due to: other (pancytopenia work-up) Discharge planning: uncertain
--- NOTE | 2016-11-07 17:06 | Medical Student: [facility] ---
Med Student Progress Note Date of Service Nov 07, 2016. Subjective This is a 21 year old [place] male who has been admitted for pancytopenia and neutropenic fever. He continues to be febrile, and at time of interview was visibly experiencing rigors and had been experiencing chills. However, he states that he does not feel ill. He has been eating and drinking. He has not been ambulating much, but says that he feels well enough to do so. Otherwise, he has no complaints. He denies headache, cough, chest pain, dyspnea, n/v/d, dysuria. Review of Systems Constitutional: + fever, + chills, No sweats, No weight loss, No weakness, No fatigue ENT: No sore throat Respiratory: No cough, No sputum, No wheezing, No shortness of breath Cardiac: No chest pain Abdomen: No pain, No nausea, No vomiting, No diarrhea, No constipation Musculoskeletal: No joint pain, No muscle pain Male : No dysuria Heme: + swollen lymph nodes, No abnormal bleeding/bruising, No clotting problems Skin: No rash, No itch, No new/changing skin lesions, No color change All Other Systems: Reviewed and Negative Objective Vital Signs Date Time Temp Pulse Resp B/P (MAP) Pulse Ox O2 Delivery O2 Flow Rate FiO2 11/07/16 15:06 37.3 104 18 91/58 (69) 99 Room Air 11/07/16 14:05 Room Air 11/07/16 12:00 39.1 11/07/16 07:56 36.7 82 20 93/63 (73) 99 Room Air 11/07/16 00:00 Room Air 11/06/16 23:00 38.1 129 20 103/74 (84) 97 Room Air 11/06/16 21:00 38.2 11/06/16 20:00 Room Air 11/06/16 17:50 37.3 Physical Exam General Appearance: WD/WN, no apparent distress, + thin ENT: pharynx normal Neck: supple, no adenopathy, thyroid normal, no JVD Respiratory/Chest: chest non-tender, lungs clear, normal breath sounds, no respiratory distress, no accessory muscle use Cardiovascular: regular rate, rhythm, no gallop, no JVD, no murmur Abdomen: normal bowel sounds, non tender, soft, + hepatomegaly, + splenomegaly Extremities: normal range of motion, non-tender, normal inspection, no calf tenderness, + pedal edema (slight residual pedal edema bilaterally ) Neurologic/Psychiatric: alert, normal mood/affect, oriented x 3 Skin: normal color, no rash Lymphatic: + pertinent finding (Significant right axillary lymphadenopathy ) Laboratory Results Last 24 Hours Test 11/07/16 05:20 White Blood Count 1.60 K/uL Red Blood Count 2.73 M/uL Hemoglobin 7.8 g/dL Hematocrit 24.3 % Mean Corpuscular Volume 89.0 fL Mean Corpuscular Hemoglobin 28.6 pg Mean Corpuscular Hemoglobin Concent 32.1 g/dl Platelet Count 95 K/uL Mean Platelet Volume 10.3 fL Neutrophils (%) (Auto) 67.4 % Lymphocytes (%) (Auto) 19.4 % Monocytes (%) (Auto) 10.0 % Eosinophils (%) (Auto) 1.3 % Basophils (%) (Auto) 0.6 % Neutrophils # (Auto) 1.08 K/uL Lymphocytes # (Auto) 0.31 K/uL Monocytes # (Auto) 0.16 K/uL Eosinophils # (Auto) 0.02 K/uL Basophils # (Auto) 0.01 K/uL RDW Standard Deviation 59.4 fL RDW Coefficient of Variation 18.7 % Immature Granulocyte % (Auto) 1.3 % Immature Granulocyte # (Auto) 0.02 K/uL Large Platelets 1+ Polychromasia 1+ Hypochromasia PRESENT Poikilocytosis PRESENT Prothrombin Time 15.0 SECONDS Prothromb Time International Ratio 1.4 Sodium Level 138 mmol/L Potassium Level 3.8 mmol/L Chloride Level 102 mmol/L Carbon Dioxide Level 31 mmol/L Anion Gap 5.0 mmol/L Blood Urea Nitrogen 12 mg/dl Creatinine 0.78 mg/dl Est Creatinine Clear Calc Drug Dose 134.4 ml/min Estimated GFR () 147.5 Estimated GFR (Non- 127.2 BUN/Creatinine Ratio 15.2 Random Glucose 89 mg/dl Calcium Level 7.5 mg/dl Total Bilirubin 1.5 mg/dl Aspartate Amino Transf (AST/SGOT) 95 U/L Alanine Aminotransferase (ALT/SGPT) 70 U/L Alkaline Phosphatase 104 U/L Total Protein 5.1 gm/dl Albumin 2.2 gm/dl Globulin 2.9 gm/dl Albumin/Globulin Ratio 0.8 Assessment and Plan Assessment and Plan: This is a 21 year old male being evaluated for pancytopenia and recurrent neutropenic fevers. At this time, he continues to be experiencing fevers and rigors, but still denies feeling overtly sick. While the differential includes but is not limited to infection v. malignancy v. acquired/congenital, it seems that infection is becoming less likely. With elevated SUNNY and disseminated hepatic/splenic lesions, may be worthwhile to consider extrapulmonary sarcoidosis. Other potential, but more rare, illnesses may also be at play, such as Gaucher/lysosomal storage disorders, rheumatologic disorders, etc. 1. Pancytopenia and Neutropenic Fever -Antibiotics have been discontinued except for Doxycycline, which will be kept to cover any lyme-borne illnesses such as erlichiosis, anaplasmosis, lymes disease. -ID titers pending (AFB culture, B. henselae pending) -Hepatitis negative; HIV negative; Lyme negative; Monospot negative; influenza negative, EBV negative, CMV negative, Parvovirus negative, Toxoplasma antibody negative. -Rheumatologic eval demonstratres normal ESR, low IgM, IgG wnl. -RF pending. May consider consulting Rheumatology. -Continue to monitor CBC. -Abdominal imaging demonstrates hepatosplenomegaly with innumerable splenic and hepatic lesions. -Right axillary lymph node core biopsy was non diagnostic. FNA demonstrated T lympocytes that were not monoclonal in etiology. -Bone marrow biopsy scheduled for tomorrow. 2. Elevated LFTs, hypoalbuminemia -Liver U/S demonstrates several lesions - Hepatitis panel negative -AST, ALT, T. Mitesh trending down. -Peripheral smear, LDH, Yohannes to monitor for manifestations of hemolytic anemia. -Continue to monitor liver enzymes 3. Hypoalbuminemia, B12 Deficiency -Continue B12 1000mg -Encourage fluid/food intake Continued [facility] stay due to: other (pancytopenia work-up) Continued [facility] stay due to: other (pancytopenia work-up) Discharge planning: uncertain
--- NOTE | 2016-11-07 17:28 | Hematology/Oncology Prog Note ---
Hematology/Onc Progress Note Date of Service Nov 07, 2016. Diagnoses Fevers Pancytopenia Medications Medications Administered Medications (Trade) Dose Ordered Sig/Ahsan Route Start Time Stop Time Status Last Admin Dose Admin Sodium Chloride 1,000 ml @ 999 mls/hr Q1H1M STAT IV 11/01/16 19:19 11/01/16 20:19 DC 11/01/16 19:19 999 MLS/HR Acetaminophen (Tylenol Tab) 1,000 mg NOW STAT PO 11/01/16 19:19 11/01/16 19:21 DC 11/01/16 19:31 1,000 MG Piperacillin Sod/ Tazobactam Sod (Zosyn Iv) 4.5 gm NOW STAT IV 11/01/16 21:23 11/01/16 21:24 DC 11/01/16 22:06 4.5 GM Acetaminophen (Tylenol Tab) 650 mg Q4H PRN PO 11/01/16 22:00 12/01/16 21:59 11/07/16 12:15 650 MG Piperacillin Sod/ Tazobactam Sod 4.5 gm/Dextrose 120 ml @ 30 mls/hr Q8H IV 11/02/16 02:00 11/02/16 09:10 DC 11/02/16 01:46 30 MLS/HR Levofloxacin 750 mg/Prmx 150 ml @ 100 mls/hr Q24H IV 11/01/16 23:00 11/05/16 13:32 DC 11/04/16 22:48 100 MLS/HR Vancomycin HCl 1600 mg/Sodium Chloride 532 ml @ 200 mls/hr TODAY@0930 ONCE IV 11/02/16 09:30 11/02/16 12:09 DC 11/02/16 09:40 200 MLS/HR Piperacillin Sod/ Tazobactam Sod 3.375 gm/Dextrose 115 ml @ 28.75 mls/ hr Q8@0200,1000,1800 IV 11/02/16 10:00 11/05/16 13:32 DC 11/05/16 09:56 28.75 MLS/HR Vancomycin HCl 1000 mg/Sodium Chloride 270 ml @ 125 mls/hr Q8@0200,1000,1800 IV 11/02/16 18:00 11/05/16 13:32 DC 11/05/16 09:56 125 MLS/HR Doxycycline Hyclate (Vibramycin Cap) 100 mg BID PO 11/02/16 13:00 11/12/16 12:59 11/07/16 08:16 100 MG Acyclovir Sodium 500 mg/Dextrose 110 ml @ 110 mls/hr Q8H IV 11/03/16 11:00 11/03/16 16:08 DC 11/03/16 11:33 110 MLS/HR Filgrastim (Neupogen Sq) 480 mcg TODAY@0800,1200 SC 11/03/16 12:00 11/04/16 09:00 DC 11/04/16 07:48 480 MCG Acyclovir Sodium 700 mg/Dextrose 114 ml @ 110 mls/hr Q8H IV 11/03/16 19:00 11/05/16 13:32 DC 11/05/16 12:15 110 MLS/HR Cyanocobalamin (Vitamin B-12 Tab) 1,000 mcg QAM PO 11/06/16 08:00 12/06/16 07:59 11/07/16 08:16 1,000 MCG Cyanocobalamin (Vitamin B-12 Tab) 1,000 mcg 1210 ONCE PO 11/05/16 12:10 11/05/16 13:02 DC 11/05/16 14:04 1,000 MCG Filgrastim (Neupogen Sq) 300 mcg DAILY@1400 SQ 11/05/16 14:00 12/05/16 13:59 Future Hold 11/05/16 14:06 300 MCG Ibuprofen (Advil Tab) 400 mg NOW STAT PO 11/06/16 23:13 11/06/16 23:20 DC 11/06/16 23:43 400 MG Potassium Chloride/Sodium Chloride 1,000 ml @ 150 mls/hr Q6H40M ONCE IV 11/07/16 12:00 11/07/16 18:39 11/07/16 12:25 150 MLS/HR Subjective Mr. Mack continues to spike fevers and his counts remain low. He denies any other new or worsening symptoms. Review of Systems: Constitutional: + fever, + fatigue Eyes: No worsening of vision ENT: No sore throat Respiratory: No cough, No shortness of breath Cardiovascular: No chest pain Abdomen: No pain, No nausea, No diarrhea Musculoskeletal: No joint pain, No muscle pain, No swelling Male : No dysuria Heme: No abnormal bleeding/bruising, No swollen lymph nodes Skin: No rash Vital Signs Vital Signs Past 12 Hours Date Time Temp Pulse Resp B/P (MAP) Pulse Ox O2 Delivery O2 Flow Rate FiO2 11/07/16 15:06 37.3 104 18 91/58 (69) 99 Room Air 11/07/16 14:05 Room Air 11/07/16 12:00 39.1 11/07/16 07:56 36.7 82 20 93/63 (73) 99 Room Air Physical Exam Constitutional: General Apperance: heathly-appearing Level of Distress: NAD Psychiatric: Mental Status: active & alert Orientation: oriented except where noted ENMT: pertinent finding (no mucositis, sclerae anicteric) Neck: trachea midline Lungs: Respiratory Effort: no dyspnea Auscuitation: breath sounds normal Cardiovascular: Heart Auscultation: RRR Abdomen: Inspection & Palpation: soft, no tenderness, guarding & rebound, pertinent finding (no organomegaly) Extremities: no edema Laboratory Last 24 Hours Test 11/07/16 05:20 11/07/16 17:08 White Blood Count 1.60 K/uL Red Blood Count 2.73 M/uL Hemoglobin 7.8 g/dL Hematocrit 24.3 % Mean Corpuscular Volume 89.0 fL Mean Corpuscular Hemoglobin 28.6 pg Mean Corpuscular Hemoglobin Concent 32.1 g/dl Platelet Count 95 K/uL Mean Platelet Volume 10.3 fL Neutrophils (%) (Auto) 67.4 % Lymphocytes (%) (Auto) 19.4 % Monocytes (%) (Auto) 10.0 % Eosinophils (%) (Auto) 1.3 % Basophils (%) (Auto) 0.6 % Neutrophils # (Auto) 1.08 K/uL Lymphocytes # (Auto) 0.31 K/uL Monocytes # (Auto) 0.16 K/uL Eosinophils # (Auto) 0.02 K/uL Basophils # (Auto) 0.01 K/uL RDW Standard Deviation 59.4 fL RDW Coefficient of Variation 18.7 % Immature Granulocyte % (Auto) 1.3 % Immature Granulocyte # (Auto) 0.02 K/uL Large Platelets 1+ Polychromasia 1+ Hypochromasia PRESENT Poikilocytosis PRESENT Prothrombin Time 15.0 SECONDS Prothromb Time International Ratio 1.4 Sodium Level 138 mmol/L Potassium Level 3.8 mmol/L Chloride Level 102 mmol/L Carbon Dioxide Level 31 mmol/L Anion Gap 5.0 mmol/L Blood Urea Nitrogen 12 mg/dl Creatinine 0.78 mg/dl Est Creatinine Clear Calc Drug Dose 134.4 ml/min Estimated GFR () 147.5 Estimated GFR (Non- 127.2 BUN/Creatinine Ratio 15.2 Random Glucose 89 mg/dl Calcium Level 7.5 mg/dl Total Bilirubin 1.5 mg/dl Aspartate Amino Transf (AST/SGOT) 95 U/L Alanine Aminotransferase (ALT/SGPT) 70 U/L Alkaline Phosphatase 104 U/L Total Protein 5.1 gm/dl Albumin 2.2 gm/dl Globulin 2.9 gm/dl Albumin/Globulin Ratio 0.8 Assessment & Plan Mr. Mack continues to be febrile for an unexplained reason. His titers for CMV and HIV are negative. He is positive for EBV IgG and EBNA but negative for IgM, which is generally consistent with a previous infection. He is also negative by serology for parvovirus, toxoplasma, and viral hepatitis. His serologies for zoonotic infections (anaplasma, erlichia, and bartonella) are still pending, but his continued fevers despite doxycycline argue against this diagnosis. His lymph node core biopsy was non-diagnostic and the FNA revealed increased benign-appearing lymphocytes with a T-cell predominance by flow, but not in a malignant pattern (normal CD4:CD8 ratio, arguing against clonality). At this point, his most markedly abnormal findings are hyperferritinemia, pancytopenia, hepatosplenomegaly with questionable lesions, and his cyclic fevers. Ongoing possibilities include a rheumatic/autoinflammatory illness ( Adult-onset Still's disease, HLH), a hematologic malignancy, or zoonotic infection that is not responding normally to therapy. The next step is likely a bone marrow biopsy. We can send this for pathology, flow, cytogenetics/FISH, and culture. If the marrow is unrevealing, probably he will be best served by transfer to a tertiary care center for further evaluation. We will perform the marrow tomorrow.
[2016-11-07 17:36] VITALS: TEMP 39.1
--- NOTE | 2016-11-07 17:48 | Family Medicine Progress Note ---
Progress Note Date of Service Nov 07, 2016. Subjective Pt evaluation today including: conversation w/ patient, physical exam, chart review, lab review Pain: None Voiding: no voiding problems, no incontinence, tineo catheter in place Continues to have fevers Asymptomatic; no chills, sweats or malaise Has been ambulating halls and using incentive spirometer No intake and voiding issues Additional Comments: A 10 point review of systems was negative unless stated above. Medications Current Inpatient Medications Medications (Trade) Dose Ordered Sig/Ahsan Route Start Time Stop Time Status Last Admin Dose Admin Acetaminophen (Tylenol Tab) 650 mg Q4H PRN PO 11/01/16 22:00 12/01/16 21:59 11/07/16 12:15 650 MG Al Hydrox/Mg Hydrox/Simethicone (Maalox Max Susp) 15 ml Q4H PRN PO 11/01/16 22:00 12/01/16 21:59 Magnesium Hydroxide (Milk Of Magnesia Susp) 30 ml Q6H PRN PO 11/01/16 22:00 12/01/16 21:59 Ondansetron HCl (Zofran Inj) 4 mg Q6H PRN IV 11/01/16 22:00 12/01/16 21:59 Doxycycline Hyclate (Vibramycin Cap) 100 mg BID PO 11/02/16 13:00 11/12/16 12:59 11/07/16 08:16 100 MG Cyanocobalamin (Vitamin B-12 Tab) 1,000 mcg QAM PO 11/06/16 08:00 12/06/16 07:59 11/07/16 08:16 1,000 MCG Filgrastim (Neupogen Sq) 300 mcg DAILY@1400 SQ 11/05/16 14:00 12/05/16 13:59 Future Hold 11/05/16 14:06 300 MCG Acetaminophen 650 mg/Empty Bag 65 ml @ 260 mls/hr Q6H PRN IV 11/05/16 19:15 12/05/16 19:14 Potassium Chloride/Sodium Chloride 1,000 ml @ 150 mls/hr Q6H40M ONCE IV 11/07/16 12:00 11/07/16 18:39 11/07/16 12:25 150 MLS/HR Objective Vital Signs Date Time Temp Pulse Resp B/P (MAP) Pulse Ox O2 Delivery O2 Flow Rate FiO2 11/07/16 16:00 99 Room Air 11/07/16 15:06 37.3 104 18 91/58 (69) 99 Room Air 11/07/16 14:05 Room Air 11/07/16 12:00 39.1 11/07/16 07:56 36.7 82 20 93/63 (73) 99 Room Air 11/07/16 00:00 Room Air 11/06/16 23:00 38.1 129 20 103/74 (84) 97 Room Air 11/06/16 21:00 38.2 11/06/16 20:00 Room Air 11/06/16 17:50 37.3 Physical Exam General Appearance: WD/WN, no apparent distress, + pertinent finding (warm ) Eyes: normal inspection, EOMI ENT: hearing grossly normal, pharynx normal Neck: supple, no adenopathy, no JVD Respiratory/Chest: lungs clear, no respiratory distress Cardiovascular: no gallop, no murmur, + tachycardia Abdomen: normal bowel sounds, non tender, soft Extremities: no pedal edema, + pedal edema (trace pedal; in the lower extremities) Neurologic/Psychiatric: alert, normal mood/affect, oriented x 3 Skin: normal color, warm/dry, no rash Lymphatic: no adenopathy Laboratory Results Last 24 Hours Test 11/07/16 05:20 11/07/16 17:25 White Blood Count 1.60 K/uL Red Blood Count 2.73 M/uL Hemoglobin 7.8 g/dL Hematocrit 24.3 % Mean Corpuscular Volume 89.0 fL Mean Corpuscular Hemoglobin 28.6 pg Mean Corpuscular Hemoglobin Concent 32.1 g/dl Platelet Count 95 K/uL Mean Platelet Volume 10.3 fL Neutrophils (%) (Auto) 67.4 % Lymphocytes (%) (Auto) 19.4 % Monocytes (%) (Auto) 10.0 % Eosinophils (%) (Auto) 1.3 % Basophils (%) (Auto) 0.6 % Neutrophils # (Auto) 1.08 K/uL Lymphocytes # (Auto) 0.31 K/uL Monocytes # (Auto) 0.16 K/uL Eosinophils # (Auto) 0.02 K/uL Basophils # (Auto) 0.01 K/uL RDW Standard Deviation 59.4 fL RDW Coefficient of Variation 18.7 % Immature Granulocyte % (Auto) 1.3 % Immature Granulocyte # (Auto) 0.02 K/uL Large Platelets 1+ Polychromasia 1+ Hypochromasia PRESENT Poikilocytosis PRESENT Prothrombin Time 15.0 SECONDS Prothromb Time International Ratio 1.4 Sodium Level 138 mmol/L Potassium Level 3.8 mmol/L Chloride Level 102 mmol/L Carbon Dioxide Level 31 mmol/L Anion Gap 5.0 mmol/L Blood Urea Nitrogen 12 mg/dl Creatinine 0.78 mg/dl Est Creatinine Clear Calc Drug Dose 134.4 ml/min Estimated GFR () 147.5 Estimated GFR (Non- 127.2 BUN/Creatinine Ratio 15.2 Random Glucose 89 mg/dl Calcium Level 7.5 mg/dl Total Bilirubin 1.5 mg/dl Aspartate Amino Transf (AST/SGOT) 95 U/L Alanine Aminotransferase (ALT/SGPT) 70 U/L Alkaline Phosphatase 104 U/L Total Protein 5.1 gm/dl Albumin 2.2 gm/dl Globulin 2.9 gm/dl Albumin/Globulin Ratio 0.8 Assessment and Plan 21 year old male presenting with new onset lower extremity edema bilaterally and pancytopenic at presentation. Feels well but continues to have fevers. LN aspiration dose not provide any definitive pathological diagnoses and we are now moving to do a BM biopsy tomorrow: Our plan for him is as follows: Pancytopenia - DDx: Lymphoproliferative disorder vs viral suppression vs inflammatory/ autoimmune etiologies currently being considered - WBC 1.6; continues to drop Will continue to hold Nupogen and watch for Aron; discussed with hem/onc - Hb 7.8 today, stable; transfuse if < 6.5 or if symptoms of anemia; no indication to transfuse at this time - Hematological evaluation Right axillary LN did not provide any pathological diagnosis Hem/Onc will do BM biopsy at bedside tomorrow Peripheral smear and LDH will be repeated Elevated reticulocyte count suggesting increasing BM output and expected elevated RDW Abdominal US suggests liver and splenic lesions: these favor infective process, though malignancy process could not be excluded--> CT scan revealed similar findings and - Infection Panel evaluation CMV, Parvovirus and EBV are negative Quantiferon testing negative; AFB culture pending Toxoplasma antibody pending; B. henselae pending, Anaplasmosis pending, Ehrlichiosis panel pending HIV is negative; Hepatitis Negative Lyme negative, influenza negative - Rheumatological evaluation AMADEO negative; ESR normal IgM low, IgG WNL Serum SUNNY elevated at 80 but unclear significant in the absence of pathological diagnosis Will add Rheumatoid factor at this time - Nutritional Evaluation Iron studies: normal iron, elevated ferritin and TIBC; ferritin elevation may reflect acute phase reactant Normal B12 and Folate - Endocrine Normal TSH - Toxic: pending lead level Neutropenic Fever - Hold Nupogen, watch for aron - Tylenol/Motrin for fever - Hold antibiotics as there is no focal bacterial etiology that can be identified - Continue Doxycycline coverage for possible tick-borne illness Hepatic Dysfunction - As noted by Transaminitis; hypoalbuminemia and Hypercoagulability - Infection vs Infiltration (per lesions on CT) - INR 1.4 today stable - Mild transaminitis stable currently; AST 95and ALT 70 today - Hepatitis panel negative - Daily CMP Bilateral pedal edema - Improving - Link to pancytopenia unclear at this time juncture; possibly 2/2 hepatic dysfunction DVT Prophylaxis - SCD - Physiologically anticoagulated at this time; no pharmacological prophylaxis Disposition - Med/Surg - Needs to remain in hospital due to neutropenia and need for CBC monitoring - Pending BM biopsy tomorrow Resident Physician Supervision Note: I was present with PGY2 Dr. Caden Cates during the history and exam. I discussed the case with the resident and agree with the findings and plan as documented in the note. Any exceptions or clarifications are listed here: none. During bedside rounds had severe rigors but denied any new complaints (no cough , no abd pain, no congestion or sore throat, no rash, etc) VSS except ongoing fever and tachycardia gen - looks worse today, having rigors mouth - no mucositis neck - no lymphadenopathy heart - tachy, s1, s2 lungs - CTA b/l abd - hepatosplenomegaly (mild), no ascites ext - trace edema b/l labs - blood cx's negative ongoing pancytopenia Cr normal LFTs with hypoalbuminemia; minimal elevation t. bili, minimal elevation AST - no change from prior A/P: 1. pancytopenia - extensive eval to date unrevealing but unlikely due to bacterial source. viral cause still possible. r/o malignancy, autoimmune, granulomatous disease etiologies. prelim results from axillary lymph node FNA without specific etiology. daily cbc. neupogen as needed. may need bone marrow bx. 2. fever - see above. all bacterial causes negative to date. agree with ID to cont off all abx except doxy pending tick-borne disease titers. treat symptoms. 3. hypoalbuminemia - encourage improved diet. 4. low-normal b12 level - doubt cause of #1, but more reflective of selective diet outside of hospital. cont b12 1000mcg orally daily. 5. elevated SUNNY level - significance unclear. Pancytopenia has been associated w/ sarcoid. Await final bx result. father and mother both updated Emre Daigle MD Continued [facility] stay due to: fever, other (pancytopenia work-up) Discharge planning: home
[2016-11-07 20:00] VITALS: O2SAT 99
--- NOTE | 2016-11-07 20:08 | GASTROENTEROLOGY PROGRESS NOTE ---
DATE: 11/07/2016 SUBJECTIVE: The patient ambulating in the hallway with his mother. The patient underwent lymphnode biopsy yesterday and preliminary results shows a mixed population of lymphocyte cells of small and medium size without any unusual or atypical appearing patterns to the cells harvested. The core biopsy of this did not yield a satisfactory specimen. Flow cytometry is pending. I did discuss the FNA results with the patient and his mother, although I did tell them that the flow cytometry was still pending. The patient did continue to have a fever, although generally feels well. He believes his peripheral edema has diminished. The patient was initially significantly leukopenic, was given a brief trial of Neupogen, which did provide some response; however, on today's labs this morning his white blood cell count is back down to 1.6. Hemoglobin is also low at 7.8, platelets are 95,000. Serum chemistries: BUN and creatinine are 12 and 0.8, total bilirubin is trending downward and is 1.5, AST 95 which may be multifactorial, ALT is normal at 70, alkaline phosphatase 104. The patients SUNNY level is elevated at 80, which is a slight elevation. TSH is normal at 2.4, folate 15.2. B12 was 299. C-reactive protein is elevated at 1.55. Today there are no markers that were positive by serology, AMADEO screen is negative. HIV toxoplasma, TB testing was all negative. Several markers are still pending. PHYSICAL EXAMINATION: VITAL SIGNS: This morning, the patient is afebrile 39.1. At 3:00, he was afebrile at 37.3, blood pressure 91/58, pulse ox 99 on room air, respirations 18, heart rate 104. GENERAL: The patient is awake, alert and oriented. HEART: Normal S1, S2. LUNGS: Clear to auscultation. ABDOMEN: Soft, without rebound or guarding. EXTREMITIES: Without clubbing or cyanosis. There is trace edema pretibially. Pedal edema is markedly diminished compared with a photograph that the patient's mother showed me from her phone. RECTAL: Deferred. IMPRESSION: The patient continues with a fever curve that cycles throughout the day without an obvious source. There does not appear to be atypical lymphocytes or any metastatic involvement of the lymph nodes that were sampled. Nevertheless, the patient's bone marrow continues to delay its recovery and leukopenia is returning. In addition, thrombocytopenia and anemia are present. It may be reasonable to consider a bone marrow biopsy at this time. Liver biopsy, although LFTs are only elevated in a nonspecific pattern may be reasonable. The SUNNY level is slightly elevated, although granulomas were not appreciated on the lymphnode biopsies to suggest sarcoidosis. Will discuss with team regarding possible utility of liver biopsy and/or bone marrow biopsy. At the present time, the patient again reiterates there is no GI symptoms that accompanied or occurred during this illness. Would obtain serum protein electrophoresis, immunoelectrophoresis, and urinary immunoelectrophoresis to rule out protein losing process. If depending on the workup small-bowel biopsy may be beneficial. We will continue to follow. All questions answered for the patient and his mother. DAMEOND
[2016-11-08] VITALS (8 sets, daily range): BP systolic 104–108; BP diastolic 52–65; PULSE 102–121; TEMP 36.5–39.5; O2SAT 94–99
[2016-11-08 06:15] LABS: HEMATOCRIT 23.5 % (42-52); MEAN CELL VOLUME 87.7 fL (80-100); MEAN CORPUSCULAR HEMOGLOBIN 28.4 pg (25-34); MEAN CORPUSCULAR HGB CONC 32.3 g/dl (32-36); MEAN PLATELET VOLUME 9.5 fL (7.4-10.4); PLATELET COUNT 100 K/uL (130-400); RED BLOOD COUNT 2.68 M/uL (4.7-6.1); WHITE BLOOD COUNT 1.81 K/uL (4.8-10.8)
[2016-11-08 06:18] LABS: INR 1.3 (0.9-1.1); PROTHROMBIN TIME (PATIENT) 14.3 SECONDS (9.0-12.0)
[2016-11-08 06:39] LABS: ALB/GLOB RATIO 0.8 (0.9-2); BUN/CREATININE RATIO 15.4 (10-20); C-REACTIVE PROTEIN 1.99 mg/dl (0-0.29); CREATININE 0.88 mg/dl (0.60-1.40); POTASSIUM 4.2 mmol/L (3.5-5.1)
[2016-11-08 07:24] LABS: BASO % 0.6 %; BASO ABS # 0.01 K/uL (0-0.2); COMPLETE YES; EOS % 0.6 %; LYMPH % 35.4 %; LYMPH ABS # 0.64 K/uL (1.2-3.4); MONO % 12.7 %; NEUT % 50.7 %; OVALOCYTES 1+
[2016-11-08 07:32] LABS: DOHLE BODIES 1+; GIANT PLATELETS 1+; TOXIC GRANULATION 2+
[2016-11-08] MEDS ORDERED: SODIUM CHLORIDE 0.9% 1000ML 1,000 ML IV ONE (08:00)
[2016-11-08] MEDS: ACETAMINOPHEN IV 650 MG in EMPTY BAG 0 ML IV PRN ×3 (08:55→20:38)
[2016-11-08] MEDS: DOXYCYCLINE HYCLATE 100 MG CAP PO SCH ×2 (08:55→20:38)
[2016-11-08] MEDS: CYANOCOBALAMIN 500 MCG TAB (VIT B-12) PO SCH (08:55)
--- NOTE | 2016-11-08 12:55 | Oncology Procedure Note ---
Procedure Note Date of Service Nov 08, 2016. Procedure After obtaining consent a bone marrow biopsy and aspirate was obtained from the patient right post. iliac crest after administering 1% lidociane as local anesthetic. The patient tolerated the procedure well. Specimen was sent for histology, flow cytometry, cytogenetics and culture.
--- NOTE | 2016-11-08 13:47 | Family Medicine Progress Note ---
Progress Note Date of Service Nov 08, 2016. Subjective Pt evaluation today including: conversation w/ patient, physical exam, chart review, lab review Pain: None PO Intake: Good Voiding: no voiding problems, no incontinence, tineo catheter in place No complaints No pain No acute issues overnigth; did have fever 39 at midnight Awaiting BM biopsy this morning; mother at beside Additional Comments: A 10 point review of systems was negative unless stated above. Medications Current Inpatient Medications Medications (Trade) Dose Ordered Sig/Ahsan Route Start Time Stop Time Status Last Admin Dose Admin Acetaminophen (Tylenol Tab) 650 mg Q4H PRN PO 11/01/16 22:00 12/01/16 21:59 11/07/16 17:34 650 MG Al Hydrox/Mg Hydrox/Simethicone (Maalox Max Susp) 15 ml Q4H PRN PO 11/01/16 22:00 12/01/16 21:59 Magnesium Hydroxide (Milk Of Magnesia Susp) 30 ml Q6H PRN PO 11/01/16 22:00 12/01/16 21:59 Ondansetron HCl (Zofran Inj) 4 mg Q6H PRN IV 11/01/16 22:00 12/01/16 21:59 Doxycycline Hyclate (Vibramycin Cap) 100 mg BID PO 11/02/16 13:00 11/12/16 12:59 11/08/16 08:55 100 MG Cyanocobalamin (Vitamin B-12 Tab) 1,000 mcg QAM PO 11/06/16 08:00 12/06/16 07:59 11/08/16 08:55 1,000 MCG Filgrastim (Neupogen Sq) 300 mcg DAILY@1400 SQ 11/05/16 14:00 12/05/16 13:59 Future Hold 11/05/16 14:06 300 MCG Acetaminophen 650 mg/Empty Bag 65 ml @ 260 mls/hr Q6H PRN IV 11/05/16 19:15 12/05/16 19:14 11/08/16 12:29 260 MLS/HR Objective Vital Signs Date Time Temp Pulse Resp B/P (MAP) Pulse Ox O2 Delivery O2 Flow Rate FiO2 11/08/16 14:30 36.5 102 18 105/64 (78) 99 Room Air 11/08/16 11:41 36.9 11/08/16 08:20 Room Air 11/08/16 08:10 39.1 11/08/16 07:32 39.5 121 18 104/52 (69) 94 Room Air 11/08/16 00:00 99 Room Air 11/08/16 00:00 39.0 106 18 108/58 (75) 96 Room Air 11/07/16 20:00 99 Room Air Physical Exam General Appearance: WD/WN, no apparent distress Eyes: normal inspection, EOMI ENT: hearing grossly normal, pharynx normal Neck: supple, no adenopathy, no JVD Respiratory/Chest: + pertinent finding (diminished breath sounds at bases R > L ) Cardiovascular: regular rate, rhythm, no gallop, no murmur Abdomen: normal bowel sounds, non tender, soft Extremities: non-tender, no pedal edema Neurologic/Psychiatric: bag presser II-XII nml as tested, alert, normal mood/affect, oriented x 3 Skin: normal color, warm/dry, no rash, + pertinent finding (warm skin) Lymphatic: no adenopathy Laboratory Results Last 24 Hours Test 11/08/16 05:28 11/08/16 12:00 White Blood Count 1.81 K/uL Red Blood Count 2.68 M/uL Hemoglobin 7.6 g/dL Hematocrit 23.5 % Mean Corpuscular Volume 87.7 fL Mean Corpuscular Hemoglobin 28.4 pg Mean Corpuscular Hemoglobin Concent 32.3 g/dl Platelet Count 100 K/uL Mean Platelet Volume 9.5 fL Neutrophils (%) (Auto) 50.7 % Lymphocytes (%) (Auto) 35.4 % Monocytes (%) (Auto) 12.7 % Eosinophils (%) (Auto) 0.6 % Basophils (%) (Auto) 0.6 % Neutrophils # (Auto) 0.92 K/uL Lymphocytes # (Auto) 0.64 K/uL Monocytes # (Auto) 0.23 K/uL Eosinophils # (Auto) 0.01 K/uL Basophils # (Auto) 0.01 K/uL RDW Standard Deviation 57.9 fL RDW Coefficient of Variation 18.5 % Immature Granulocyte % (Auto) 0.0 % Immature Granulocyte # (Auto) 0.00 K/uL Toxic Granulation 2+ Dohle Bodies 1+ Giant Platelets 1+ Ovalocytes 1+ Erythrocyte Sedimentation Rate 2 mm/hr Prothrombin Time 14.3 SECONDS Prothromb Time International Ratio 1.3 Sodium Level 136 mmol/L Potassium Level 4.2 mmol/L Chloride Level 102 mmol/L Carbon Dioxide Level 26 mmol/L Anion Gap 8.0 mmol/L Blood Urea Nitrogen 14 mg/dl Creatinine 0.88 mg/dl Est Creatinine Clear Calc Drug Dose 119.1 ml/min Estimated GFR () 140.3 Estimated GFR (Non- 121.1 BUN/Creatinine Ratio 15.4 Random Glucose 92 mg/dl Calcium Level 7.0 mg/dl Total Bilirubin 1.2 mg/dl Aspartate Amino Transf (AST/SGOT) 114 U/L Alanine Aminotransferase (ALT/SGPT) 76 U/L Alkaline Phosphatase 150 U/L C-Reactive Protein 1.99 mg/dl Total Protein 5.1 gm/dl Albumin 2.2 gm/dl Globulin 2.9 gm/dl Albumin/Globulin Ratio 0.8 Assessment and Plan 21 year old male presenting with new onset lower extremity edema bilaterally and pancytopenic at presentation. Patient had BM Biopsy and pending pathology findings at this time Our plan for him is as follows: Pancytopenia - DDx: Lymphoproliferative disorder vs viral suppression vs inflammatory/ autoimmune etiologies currently being considered - Abnormal CT with innumerable ill define splenic and hepatic lesions - WBC improved slightly to 1.8 but ANC down to 0.98; patient back on contact precautions - Hb 7.6 today, stable; transfuse if < 6.5 or if symptoms of anemia; no indication to transfuse at this time - Hematological evaluation Multiple evaluations without conclusive evidence for etiology. Smear, Retic Count Bone marrow biopsy done today, results pending - Infection Panel evaluation Negative studies include: CMV, Parvovirus, EBV Quantiferon, HIV, Lyme, Bartonella AFB culture pending; Toxoplasma antibody pending; B. henselae pending, Anaplasmosis pending, Ehrlichiosis panel pending - Rheumatological evaluation AMADEO negative; ESR negative x 2 IgM low, IgG WNL Rh Factor pending SUNNY level elevated at 80 without clear significant to presentation - Nutritional Evaluation Iron studies: Ferritin elevation may reflect acute phase reactant Normal B12 and Folate - Endocrine Normal TSH - Toxic: negative lead level Neutropenic Fever - Tylenol/Motrin for fever - No indication for IV antibiotics - Continue Doxycycline coverage for possible tick-borne illness - Continue to have fevers Likely having increased insensible losses; remains slightly tachycardic Will give 1 L NSS bolus today; re-assess tomorrow Hepatic Dysfunction - As noted by Transaminitis; hypoalbuminemia and Hypercoagulability - Infection vs Infiltration (per lesions on CT) - INR 1.3 today - Daily CMP Bilateral pedal edema - Improving - Link to pancytopenia unclear at this time juncture; possibly 2/2 hepatic dysfunction DVT Prophylaxis - SCD - Physiologically anticoagulated at this time; no pharmacological prophylaxis Disposition - Med/Surg - Needs to remain in hospital due to neutropenia and need for CBC monitoring - BM biopsy result pending - If all evaluations negative, need to consider transfer to tertiary care centre to continue work-up. Discussed case with family who are in agreement. At this time we are awaiting results of BM biopsy. Resident Physician Supervision Note: I was present with PGY2 Dr. Caden Cates during the history and exam. I discussed the case with the resident and agree with the findings and plan as documented in the note. Any exceptions or clarifications are listed here: none. No new complaints today. States he is eating better. Fever remains but not as many spikes. VSS except ongoing fever and tachycardia gen - NAD mouth - no mucositis heart - tachy, s1, s2 lungs - CTA b/l abd - hepatosplenomegaly (mild), no ascites ext - trace edema b/l labs - ongoing pancytopenia Cr normal LFTs mildly high but unchanged A/P: 1. pancytopenia - extensive eval to date unrevealing. viral cause still possible. r/o malignancy, autoimmune, granulomatous disease etiologies. results from axillary lymph node FNA without specific etiology. daily cbc. neupogen as needed. bone marrow bx today. 2. fever - see above. all bacterial causes negative to date. agree with ID to cont off all abx except doxy pending tick-borne disease titers. treat symptoms. 3. hypoalbuminemia - encourage improved diet. 4. low-normal b12 level - cont b12 1000mcg orally daily. 5. elevated SUNNY level - significance unclear. Pancytopenia has been associated w/ sarcoid. However, at this point, it is looking unlikely this is sarcoid. 6. abnormal LFTs - likely reactive to the underlying process. father and mother both updated await bone marrow bx Emre Daigle MD Continued [facility] stay due to: fever Discharge planning: uncertain
--- NOTE | 2016-11-08 13:51 | Progress Note ---
Subjective Date of Service: Nov 08, 2016. Subjective pt remains with high grade fevers. tolerating doxy. tick borne serologies pending. all cultures negative. multiple infectious serologies negative. bartonella negative today. afb blood culture negative. S/p lymph node biopsy, non diagnostic, had bone marrow biopsy today. remains pancytopenic after g-csf x2 and transfusion. Problem List Medical Problems: (1) Elevated liver enzymes Status: Acute (2) Swelling of lower extremity Status: Acute Objective Vital Signs Date Time Temp Pulse Resp B/P (MAP) Pulse Ox O2 Delivery O2 Flow Rate FiO2 11/08/16 11:41 36.9 11/08/16 08:20 Room Air 11/08/16 08:10 39.1 11/08/16 07:32 39.5 121 18 104/52 (69) 94 Room Air 11/08/16 00:00 99 Room Air 11/08/16 00:00 39.0 106 18 108/58 (75) 96 Room Air 11/07/16 20:00 99 Room Air 11/07/16 17:36 39.1 11/07/16 16:00 99 Room Air 11/07/16 15:06 37.3 104 18 91/58 (69) 99 Room Air 11/07/16 14:05 Room Air Laboratory Results Last 24 Hours Test 11/07/16 17:25 11/07/16 18:40 11/08/16 05:28 11/08/16 12:00 Lactate Dehydrogenase 477 U/L Triglycerides Level 320 mg/dl Fibrinogen 114 mg/dl White Blood Count 1.81 K/uL Red Blood Count 2.68 M/uL Hemoglobin 7.6 g/dL Hematocrit 23.5 % Mean Corpuscular Volume 87.7 fL Mean Corpuscular Hemoglobin 28.4 pg Mean Corpuscular Hemoglobin Concent 32.3 g/dl Platelet Count 100 K/uL Mean Platelet Volume 9.5 fL Neutrophils (%) (Auto) 50.7 % Lymphocytes (%) (Auto) 35.4 % Monocytes (%) (Auto) 12.7 % Eosinophils (%) (Auto) 0.6 % Basophils (%) (Auto) 0.6 % Neutrophils # (Auto) 0.92 K/uL Lymphocytes # (Auto) 0.64 K/uL Monocytes # (Auto) 0.23 K/uL Eosinophils # (Auto) 0.01 K/uL Basophils # (Auto) 0.01 K/uL RDW Standard Deviation 57.9 fL RDW Coefficient of Variation 18.5 % Immature Granulocyte % (Auto) 0.0 % Immature Granulocyte # (Auto) 0.00 K/uL Toxic Granulation 2+ Dohle Bodies 1+ Giant Platelets 1+ Ovalocytes 1+ Erythrocyte Sedimentation Rate 2 mm/hr Prothrombin Time 14.3 SECONDS Prothromb Time International Ratio 1.3 Sodium Level 136 mmol/L Potassium Level 4.2 mmol/L Chloride Level 102 mmol/L Carbon Dioxide Level 26 mmol/L Anion Gap 8.0 mmol/L Blood Urea Nitrogen 14 mg/dl Creatinine 0.88 mg/dl Est Creatinine Clear Calc Drug Dose 119.1 ml/min Estimated GFR () 140.3 Estimated GFR (Non- 121.1 BUN/Creatinine Ratio 15.4 Random Glucose 92 mg/dl Calcium Level 7.0 mg/dl Total Bilirubin 1.2 mg/dl Aspartate Amino Transf (AST/SGOT) 114 U/L Alanine Aminotransferase (ALT/SGPT) 76 U/L Alkaline Phosphatase 150 U/L C-Reactive Protein 1.99 mg/dl Total Protein 5.1 gm/dl Albumin 2.2 gm/dl Globulin 2.9 gm/dl Albumin/Globulin Ratio 0.8 Assessment and Plan (1) Neutropenic fever Assessment & Plan: no clear infectious etiology noted. If tick borne (anaplasma ) would expect rapid resolution of symptoms/pancytopenia with doxy. has had multiple days of doxy with no resolution, in fact counts dropping even with g csf. All infectious workup negative to this point. Additionally, he has had reported wt loss and has a prealbumin of 5 which in unlikely in a 21 year old. Ferritin level markedly elevated and INR mildly elevated at 1.4 which speaks to chronic condition rather than acute viral illness. pt was in [facility], could also consider mosquito borne illness, but this is much less likely as travel was one year ago. [facility]. lymph node aspirate unrevealing and tissue not consistent with lymph node. S/p bone marrow biopsy today, follow results. Suggest either liver biopsy or biospy of splenic lesion if bone marrow biopsy unrevealing as well. will continue on doxy for now but again suspect his symptoms/pancytopenia would resolve by now. Also don't feel acute tick borne illness would cause low prealbumin. (2) Elevated liver enzymes Continued [facility] stay due to: fever Discharge planning: uncertain
--- NOTE | 2016-11-08 15:23 | Medical Student: [facility] ---
Med Student Progress Note Date of Service Nov 08, 2016. Subjective Pt evaluation today including: conversation w/ patient, conversation w/ family This is a 21 y/o male with continuing neutropenic fevers and pancytopenia. At this time, he continues to be febrile. He reports that he had a substantial nose bleed earlier in the day, which required several tissues before resolving. He has not had a repeat event. He otherwise reports feeling well. He tolerated the bone marrow biopsy well. His mother and father are now present in [place], but note that if prolonged hospitalization is required they would prefer to move him to [place]. He denies any other symptoms. He denies n/v/d, headaches, chest pain, SOB, cough, abdominal pain, dysuria. Review of Systems Constitutional: + fever, + chills, No sweats, No weight loss ENT: No sore throat Respiratory: No cough, No sputum, No wheezing Cardiac: No chest pain Abdomen: No pain, No nausea Musculoskeletal: No joint pain Male : No dysuria Heme: + abnormal bleeding/bruising (nosebleed) Skin: No rash Objective Vital Signs Date Time Temp Pulse Resp B/P (MAP) Pulse Ox O2 Delivery O2 Flow Rate FiO2 11/08/16 11:41 36.9 11/08/16 08:20 Room Air 11/08/16 08:10 39.1 11/08/16 07:32 39.5 121 18 104/52 (69) 94 Room Air 11/08/16 00:00 99 Room Air 11/08/16 00:00 39.0 106 18 108/58 (75) 96 Room Air 11/07/16 20:00 99 Room Air 11/07/16 17:36 39.1 11/07/16 16:00 99 Room Air 11/07/16 15:06 37.3 104 18 91/58 (69) 99 Room Air 11/07/16 14:05 Room Air Physical Exam General Appearance: WD/WN, no apparent distress Neck: supple, no adenopathy, thyroid normal, no JVD Respiratory/Chest: chest non-tender, lungs clear, no respiratory distress, no accessory muscle use, + decreased breath sounds (bases bilaterally ) Cardiovascular: regular rate, rhythm, no gallop, no JVD Abdomen: normal bowel sounds, non tender Extremities: non-tender, normal capillary refill, + pedal edema Neurologic/Psychiatric: alert, normal mood/affect, oriented x 3 Skin: normal color Laboratory Results Last 24 Hours Test 11/07/16 17:25 11/07/16 18:40 11/08/16 05:28 11/08/16 12:00 Lactate Dehydrogenase 477 U/L Triglycerides Level 320 mg/dl Fibrinogen 114 mg/dl White Blood Count 1.81 K/uL Red Blood Count 2.68 M/uL Hemoglobin 7.6 g/dL Hematocrit 23.5 % Mean Corpuscular Volume 87.7 fL Mean Corpuscular Hemoglobin 28.4 pg Mean Corpuscular Hemoglobin Concent 32.3 g/dl Platelet Count 100 K/uL Mean Platelet Volume 9.5 fL Neutrophils (%) (Auto) 50.7 % Lymphocytes (%) (Auto) 35.4 % Monocytes (%) (Auto) 12.7 % Eosinophils (%) (Auto) 0.6 % Basophils (%) (Auto) 0.6 % Neutrophils # (Auto) 0.92 K/uL Lymphocytes # (Auto) 0.64 K/uL Monocytes # (Auto) 0.23 K/uL Eosinophils # (Auto) 0.01 K/uL Basophils # (Auto) 0.01 K/uL RDW Standard Deviation 57.9 fL RDW Coefficient of Variation 18.5 % Immature Granulocyte % (Auto) 0.0 % Immature Granulocyte # (Auto) 0.00 K/uL Toxic Granulation 2+ Dohle Bodies 1+ Giant Platelets 1+ Ovalocytes 1+ Erythrocyte Sedimentation Rate 2 mm/hr Prothrombin Time 14.3 SECONDS Prothromb Time International Ratio 1.3 Sodium Level 136 mmol/L Potassium Level 4.2 mmol/L Chloride Level 102 mmol/L Carbon Dioxide Level 26 mmol/L Anion Gap 8.0 mmol/L Blood Urea Nitrogen 14 mg/dl Creatinine 0.88 mg/dl Est Creatinine Clear Calc Drug Dose 119.1 ml/min Estimated GFR () 140.3 Estimated GFR (Non- 121.1 BUN/Creatinine Ratio 15.4 Random Glucose 92 mg/dl Calcium Level 7.0 mg/dl Total Bilirubin 1.2 mg/dl Aspartate Amino Transf (AST/SGOT) 114 U/L Alanine Aminotransferase (ALT/SGPT) 76 U/L Alkaline Phosphatase 150 U/L C-Reactive Protein 1.99 mg/dl Total Protein 5.1 gm/dl Albumin 2.2 gm/dl Globulin 2.9 gm/dl Albumin/Globulin Ratio 0.8 Medications Medications Administered Medications (Trade) Dose Ordered Sig/Ahsan Route Start Time Stop Time Status Last Admin Dose Admin Sodium Chloride 1,000 ml @ 999 mls/hr Q1H1M STAT IV 11/01/16 19:19 11/01/16 20:19 DC 11/01/16 19:19 999 MLS/HR Acetaminophen (Tylenol Tab) 1,000 mg NOW STAT PO 11/01/16 19:19 11/01/16 19:21 DC 11/01/16 19:31 1,000 MG Piperacillin Sod/ Tazobactam Sod (Zosyn Iv) 4.5 gm NOW STAT IV 11/01/16 21:23 11/01/16 21:24 DC 11/01/16 22:06 4.5 GM Acetaminophen (Tylenol Tab) 650 mg Q4H PRN PO 11/01/16 22:00 12/01/16 21:59 11/07/16 17:34 650 MG Piperacillin Sod/ Tazobactam Sod 4.5 gm/Dextrose 120 ml @ 30 mls/hr Q8H IV 11/02/16 02:00 11/02/16 09:10 DC 11/02/16 01:46 30 MLS/HR Levofloxacin 750 mg/Prmx 150 ml @ 100 mls/hr Q24H IV 11/01/16 23:00 11/05/16 13:32 DC 11/04/16 22:48 100 MLS/HR Vancomycin HCl 1600 mg/Sodium Chloride 532 ml @ 200 mls/hr TODAY@0930 ONCE IV 11/02/16 09:30 11/02/16 12:09 DC 11/02/16 09:40 200 MLS/HR Piperacillin Sod/ Tazobactam Sod 3.375 gm/Dextrose 115 ml @ 28.75 mls/ hr Q8@0200,1000,1800 IV 11/02/16 10:00 11/05/16 13:32 DC 11/05/16 09:56 28.75 MLS/HR Vancomycin HCl 1000 mg/Sodium Chloride 270 ml @ 125 mls/hr Q8@0200,1000,1800 IV 11/02/16 18:00 11/05/16 13:32 DC 11/05/16 09:56 125 MLS/HR Doxycycline Hyclate (Vibramycin Cap) 100 mg BID PO 11/02/16 13:00 11/12/16 12:59 11/08/16 08:55 100 MG Acyclovir Sodium 500 mg/Dextrose 110 ml @ 110 mls/hr Q8H IV 11/03/16 11:00 11/03/16 16:08 DC 11/03/16 11:33 110 MLS/HR Filgrastim (Neupogen Sq) 480 mcg TODAY@0800,1200 SC 11/03/16 12:00 11/04/16 09:00 DC 11/04/16 07:48 480 MCG Acyclovir Sodium 700 mg/Dextrose 114 ml @ 110 mls/hr Q8H IV 11/03/16 19:00 11/05/16 13:32 DC 11/05/16 12:15 110 MLS/HR Cyanocobalamin (Vitamin B-12 Tab) 1,000 mcg QAM PO 11/06/16 08:00 12/06/16 07:59 11/08/16 08:55 1,000 MCG Cyanocobalamin (Vitamin B-12 Tab) 1,000 mcg 1210 ONCE PO 11/05/16 12:10 11/05/16 13:02 DC 11/05/16 14:04 1,000 MCG Filgrastim (Neupogen Sq) 300 mcg DAILY@1400 SQ 11/05/16 14:00 12/05/16 13:59 Future Hold 11/05/16 14:06 300 MCG Acetaminophen 650 mg/Empty Bag 65 ml @ 260 mls/hr Q6H PRN IV 11/05/16 19:15 12/05/16 19:14 11/08/16 12:29 260 MLS/HR Ibuprofen (Advil Tab) 400 mg NOW STAT PO 11/06/16 23:13 11/06/16 23:20 DC 11/06/16 23:43 400 MG Potassium Chloride/Sodium Chloride 1,000 ml @ 150 mls/hr Q6H40M ONCE IV 11/07/16 12:00 11/07/16 18:39 DC 11/07/16 12:25 150 MLS/HR Sodium Chloride 1,000 ml @ 250 mls/hr Q4H ONCE IV 11/08/16 08:00 11/08/16 11:59 DC 11/08/16 08:57 250 MLS/HR Assessment and Plan Assessment and Plan: This is a 21 year old male being evaluated for pancytopenia and recurrent neutropenic fevers. He has been symptomatic with epistaxis and fevers, rigors, but continues to report feeling well overall. The differential continues to include but is not limited to infection v. malignancy v. acquired/congenital, it seems that infection is becoming less likely. With elevated SUNNY and disseminated hepatic/splenic lesions, may be worthwhile to consider extrapulmonary sarcoidosis. Other potential, but more rare, illnesses may also be at play, such as Gaucher/lysosomal storage disorders, rheumatologic disorders , etc. A bone marrow biopsy has been performed and will hopefully rule out more serious illnesses. However, if this is non diagnostic, it may be prudent to continue his workup at a tertiary care center. 1. Pancytopenia and Neutropenic Fever -ANC <1, placed on neutropenic precautions. -Antibiotics have been discontinued except for Doxycycline, which will be kept to cover any lyme-borne illnesses such as erlichiosis, anaplasmosis, lymes disease. -ID titers pending (AFB culture, B. henselae pending) -Hepatitis negative; HIV negative; Lyme negative; Monospot negative; influenza negative, EBV negative, CMV negative, Parvovirus negative, Toxoplasma antibody negative. -Rheumatologic eval demonstratres normal ESR, low IgM, IgG wnl. -RF pending. May consider consulting Rheumatology. -Continue to monitor CBC. -Abdominal imaging demonstrates hepatosplenomegaly with innumerable splenic and hepatic lesions. -Right axillary lymph node core biopsy was non diagnostic. FNA demonstrated T lympocytes that were not monoclonal in etiology. -Bone marrow biopsy complete and tolerated well. Results anticipated next week. 2. Elevated LFTs, hypoalbuminemia -Liver U/S demonstrates several lesions - Hepatitis panel negative -AST, ALT, T. Mitesh trending down. -Peripheral smear, LDH, Yohannes to monitor for manifestations of hemolytic anemia. -Continue to monitor liver enzymes 3. Hypoalbuminemia, B12 Deficiency -Continue B12 1000mg -Encourage fluid/food intake Continued [facility] stay due to: fever, other (pancytopenia work-up) Discharge planning: home
[2016-11-09] VITALS (7 sets, daily range): BP systolic 100–127; BP diastolic 64–75; PULSE 99–139; TEMP 36.8–39.5; O2SAT 90–99
--- NOTE | 2016-11-09 00:31 | GASTROENTEROLOGY PROGRESS NOTE ---
DATE: 11/08/2016 Patient is sleeping at the time of this visit, although his parents were present in the room. PHYSICAL EXAMINATION: ABDOMEN: Soft, without rebound or guarding. EXTREMITIES: Showed trace edema bilaterally. He has compression stockings on. There was less pedal edema. The patient did undergo a bone marrow and awaiting the results of this for his fever of unknown origin. The patient continues to leukopenic, anemic and thrombocytopenic and is off Neupogen currently. LABORATORY STUDIES: Today's white count is 1.8, hemoglobin 7.6, platelets 100,000. His BUN and creatinine are 14 and 0.9, potassium 4.2. C-reactive protein remains elevated at 199, LDH is slightly elevated at 477 and his liver function tests are actually beginning to increase in regards to alkaline phosphatase. On admission, alkaline phosphatase was 64 with a total bilirubin of 1.6 and direct 0.8 with an AST of 121, ALT of 110. Although bilirubin had risen, it is now declining and total bilirubin today is 1.2. However, alkaline phosphatase increasing and is currently 150. AST is 114 and ALT is normal at 76. Albumin remains low at 2.2. AMADEO was negative. At the present time, some titers for Bartonella henselae, IgM, IgG and Bartonella anglin were also negative by IgG and IgM. Many other markers are negative. Several other markers are pending. Hepatitis A IgM, hepatitis B core IgM were non-reactive as was hepatitis A and hepatitis B surface antigen. Lyme titers were negative. A bone marrow is pending. Flow cytometry from fine-needle aspirations of lymph nodes in the axilla are pending. MEDICATIONS: Medications were reviewed and he remains on doxycycline, Zofran and B12. IMPRESSION AND PLAN: Source of fever remains unclear, although this seems to cycle, as it is elevated in the morning and again in the evening. We will await the results of bone marrow biopsy. If this is unrevealing as well as flow cytometry from the fine-needle aspiration of the lymph nodes, then a liver biopsy may ultimately be necessary. Additionally, small bowel. All questions answered for the patient's parents. [facility]
[2016-11-09 06:36] LABS: ALT/SGPT 78 U/L (12-78); AST/SGOT 110 U/L (15-37); BLOOD UREA NITROGEN 12 mg/dl (7-18); BUN/CREATININE RATIO 14.7 (10-20); CALCIUM 7.3 mg/dl (8.5-10.1); CARBON DIOXIDE 29 mmol/L (21-32); CHLORIDE 101 mmol/L (98-107); CREATININE 0.79 mg/dl (0.60-1.40); GLUCOSE 85 mg/dl (70-99); POTASSIUM 4.4 mmol/L (3.5-5.1); SODIUM 135 mmol/L (136-145)
[2016-11-09 06:40] LABS: ALB/GLOB RATIO 0.7 (0.9-2); ALKALINE PHOSPHATASE 132 U/L (45-117); RHEUMATOID FACTOR < 10.0 U/mL (0-15)
[2016-11-09 07:01] LABS: HEMATOCRIT 22.8 % (42-52); MEAN CELL VOLUME 89.8 fL (80-100); MEAN CORPUSCULAR HEMOGLOBIN 29.9 pg (25-34); MEAN CORPUSCULAR HGB CONC 33.3 g/dl (32-36); MEAN PLATELET VOLUME 9.9 fL (7.4-10.4); PLATELET COUNT 88 K/uL (130-400); RED BLOOD COUNT 2.54 M/uL (4.7-6.1)
[2016-11-09 07:15] LABS: ANISOCYTOSIS PRESENT; COMPLETE YES; DOHLE BODIES 1+; EOS % 0.6 %; GIANT PLATELETS 1+; LYMPH % 29.4 %; LYMPH ABS # 0.47 K/uL (1.2-3.4); MONO % 10.6 %; NEUT % 59.4 %; TOXIC GRANULATION 1+
[2016-11-09] MEDS: ACETAMINOPHEN IV 650 MG in EMPTY BAG 0 ML IV PRN ×2 (07:36→22:01)
[2016-11-09] MEDS: CYANOCOBALAMIN 500 MCG TAB (VIT B-12) PO SCH (07:36)
[2016-11-09] MEDS: DOXYCYCLINE HYCLATE 100 MG CAP PO SCH ×2 (07:36→21:49)
--- NOTE | 2016-11-09 14:57 | DIAGNOSTIC IMAGING REPORT ---
TWO VIEW CHEST CLINICAL HISTORY: Diminished breath sounds. FINDINGS: PA and lateral chest radiographs are compared to study dated 11/01/2016 and correlated with chest CT dated 11/02/2016. The cardiomediastinal silhouette is unremarkable. There are small pleural effusions, right larger than left with associated consolidation. These were also seen by CT on 11/02/2016. The upper lobes are clear. There is no pneumothorax. The bony thorax appears intact. IMPRESSION: Small pleural effusions, right larger than left with associated consolidation. This likely represents atelectasis. Correlate clinically for evidence of superimposed pneumonia. These are unchanged to slightly increased in size from 11/02/2016. Electronically signed by: Jhonathan Matute M.D. 11/09/2016 2:56 PM Dictated Date/Time: 11/09/2016 2:53 PM
--- NOTE | 2016-11-09 15:26 | Progress Note ---
Subjective Date of Service: Nov 09, 2016. Subjective pt ambulating in [place] with family. Remains with fevers, all cultures negative. all serologies negative to date. s/p bone marrow biopsy yesterday, results pending. gram stain with moderate wbc and no organisms, fungal smear negative. afb smear negative. lymph node biopsy pending. 11/05 cultures pending. remains pancytopenic. wbc 1.6 today. no overnight events. Problem List Medical Problems: (1) Elevated liver enzymes Status: Acute (2) Swelling of lower extremity Status: Acute Objective Vital Signs Date Time Temp Pulse Resp B/P (MAP) Pulse Ox O2 Delivery O2 Flow Rate FiO2 11/09/16 09:30 36.8 11/09/16 08:30 Room Air 11/09/16 07:19 39.5 113 16 109/64 (79) 97 Room Air 11/09/16 00:00 99 Room Air 11/08/16 23:12 37.0 113 20 104/65 (78) 96 Room Air 11/08/16 19:35 39.0 11/08/16 16:15 99 Room Air Laboratory Results Item Value Date Time Gram Stain - Final Resulted 11/08/16 1200 Bone Marrow Acid Fast Stain - Final Resulted 11/08/16 1200 Bone Marrow Fungal Smear - Final Resulted 11/08/16 1200 Bone Marrow Blood Culture - Preliminary Resulted 11/05/16 1934 Blood NO GROWTH TO DATE. Blood Culture - Preliminary Resulted 11/05/16 192 Blood NO GROWTH TO DATE. Acid Fast Stain - Final Resulted 11/02/16 1455 Blood Blood Culture - Final Complete 11/01/16 1945 Blood NO GROWTH Blood Culture - Final Complete 11/01/16 1930 Blood NO GROWTH Last 24 Hours Test 11/09/16 05:11 White Blood Count 1.60 K/uL Red Blood Count 2.54 M/uL Hemoglobin 7.6 g/dL Hematocrit 22.8 % Mean Corpuscular Volume 89.8 fL Mean Corpuscular Hemoglobin 29.9 pg Mean Corpuscular Hemoglobin Concent 33.3 g/dl Platelet Count 88 K/uL Mean Platelet Volume 9.9 fL Neutrophils (%) (Auto) 59.4 % Lymphocytes (%) (Auto) 29.4 % Monocytes (%) (Auto) 10.6 % Eosinophils (%) (Auto) 0.6 % Basophils (%) (Auto) 0.0 % Neutrophils # (Auto) 0.95 K/uL Lymphocytes # (Auto) 0.47 K/uL Monocytes # (Auto) 0.17 K/uL Eosinophils # (Auto) 0.01 K/uL Basophils # (Auto) 0.00 K/uL RDW Standard Deviation 62.3 fL RDW Coefficient of Variation 19.2 % Immature Granulocyte % (Auto) 0.0 % Immature Granulocyte # (Auto) 0.00 K/uL Toxic Granulation 1+ Dohle Bodies 1+ Giant Platelets 1+ Anisocytosis PRESENT Sodium Level 135 mmol/L Potassium Level 4.4 mmol/L Chloride Level 101 mmol/L Carbon Dioxide Level 29 mmol/L Anion Gap 5.0 mmol/L Blood Urea Nitrogen 12 mg/dl Creatinine 0.79 mg/dl Est Creatinine Clear Calc Drug Dose 132.7 ml/min Estimated GFR () 146.7 Estimated GFR (Non- 126.6 BUN/Creatinine Ratio 14.7 Random Glucose 85 mg/dl Calcium Level 7.3 mg/dl Total Bilirubin 1.3 mg/dl Aspartate Amino Transf (AST/SGOT) 110 U/L Alanine Aminotransferase (ALT/SGPT) 78 U/L Alkaline Phosphatase 132 U/L Total Protein 5.2 gm/dl Albumin 2.2 gm/dl Globulin 3.0 gm/dl Albumin/Globulin Ratio 0.7 Rheumatoid Factor < 10.0 U/mL Assessment and Plan (1) Neutropenic fever Assessment & Plan: no clear infectious etiology noted. If tick borne (anaplasma ) would expect rapid resolution of symptoms/pancytopenia with doxy. has had multiple days of doxy with no resolution, in fact counts dropping even with g csf. All infectious workup negative to this point. Additionally, he has had reported wt loss and has a prealbumin of 5 which in unlikely in a 21 year old. Ferritin level markedly elevated and INR mildly elevated at 1.4 which speaks to chronic condition rather than acute viral illness. pt was in [place], could also consider mosquito borne illness, but this is much less likely as travel was one year ago. [facility]ate unrevealing and tissue not consistent with lymph node. S/p bone marrow biopsy today, follow results, so far routine, fungal and afb negative. gram stain with no organisms and fungal and afb smear neagtive. . Suggest either liver biopsy or biospy of splenic lesion if bone marrow biopsy unrevealing as well. will continue on doxy for now but again suspect his symptoms/pancytopenia would resolve by now. Also don't feel acute tick borne illness would cause low prealbumin. (2) Elevated liver enzymes Continued [facility] stay due to: fever, other (pancytopenia work-up) Discharge planning: home
--- NOTE | 2016-11-09 16:48 | Hematology/Oncology Prog Note ---
Hematology/Onc Progress Note Date of Service Nov 09, 2016. Diagnoses Fevers Pancytopenia Medications Medications Administered Medications (Trade) Dose Ordered Sig/Ahsan Route Start Time Stop Time Status Last Admin Dose Admin Sodium Chloride 1,000 ml @ 999 mls/hr Q1H1M STAT IV 11/01/16 19:19 11/01/16 20:19 DC 11/01/16 19:19 999 MLS/HR Acetaminophen (Tylenol Tab) 1,000 mg NOW STAT PO 11/01/16 19:19 11/01/16 19:21 DC 11/01/16 19:31 1,000 MG Piperacillin Sod/ Tazobactam Sod (Zosyn Iv) 4.5 gm NOW STAT IV 11/01/16 21:23 11/01/16 21:24 DC 11/01/16 22:06 4.5 GM Acetaminophen (Tylenol Tab) 650 mg Q4H PRN PO 11/01/16 22:00 12/01/16 21:59 11/07/16 17:34 650 MG Piperacillin Sod/ Tazobactam Sod 4.5 gm/Dextrose 120 ml @ 30 mls/hr Q8H IV 11/02/16 02:00 11/02/16 09:10 DC 11/02/16 01:46 30 MLS/HR Levofloxacin 750 mg/Prmx 150 ml @ 100 mls/hr Q24H IV 11/01/16 23:00 11/05/16 13:32 DC 11/04/16 22:48 100 MLS/HR Vancomycin HCl 1600 mg/Sodium Chloride 532 ml @ 200 mls/hr TODAY@0930 ONCE IV 11/02/16 09:30 11/02/16 12:09 DC 11/02/16 09:40 200 MLS/HR Piperacillin Sod/ Tazobactam Sod 3.375 gm/Dextrose 115 ml @ 28.75 mls/ hr Q8@0200,1000,1800 IV 11/02/16 10:00 11/05/16 13:32 DC 11/05/16 09:56 28.75 MLS/HR Vancomycin HCl 1000 mg/Sodium Chloride 270 ml @ 125 mls/hr Q8@0200,1000,1800 IV 11/02/16 18:00 11/05/16 13:32 DC 11/05/16 09:56 125 MLS/HR Doxycycline Hyclate (Vibramycin Cap) 100 mg BID PO 11/02/16 13:00 11/12/16 12:59 11/09/16 07:36 100 MG Acyclovir Sodium 500 mg/Dextrose 110 ml @ 110 mls/hr Q8H IV 11/03/16 11:00 11/03/16 16:08 DC 11/03/16 11:33 110 MLS/HR Filgrastim (Neupogen Sq) 480 mcg TODAY@0800,1200 SC 11/03/16 12:00 11/04/16 09:00 DC 11/04/16 07:48 480 MCG Acyclovir Sodium 700 mg/Dextrose 114 ml @ 110 mls/hr Q8H IV 11/03/16 19:00 11/05/16 13:32 DC 11/05/16 12:15 110 MLS/HR Cyanocobalamin (Vitamin B-12 Tab) 1,000 mcg QAM PO 11/06/16 08:00 12/06/16 07:59 11/09/16 07:36 1,000 MCG Cyanocobalamin (Vitamin B-12 Tab) 1,000 mcg 1210 ONCE PO 11/05/16 12:10 11/05/16 13:02 DC 11/05/16 14:04 1,000 MCG Filgrastim (Neupogen Sq) 300 mcg DAILY@1400 SQ 11/05/16 14:00 12/05/16 13:59 Future Hold 11/05/16 14:06 300 MCG Acetaminophen 650 mg/Empty Bag 65 ml @ 260 mls/hr Q6H PRN IV 11/05/16 19:15 12/05/16 19:14 11/09/16 07:36 260 MLS/HR Ibuprofen (Advil Tab) 400 mg NOW STAT PO 11/06/16 23:13 11/06/16 23:20 DC 11/06/16 23:43 400 MG Potassium Chloride/Sodium Chloride 1,000 ml @ 150 mls/hr Q6H40M ONCE IV 11/07/16 12:00 11/07/16 18:39 DC 11/07/16 12:25 150 MLS/HR Sodium Chloride 1,000 ml @ 250 mls/hr Q4H ONCE IV 11/08/16 08:00 11/08/16 11:59 DC 11/08/16 08:57 250 MLS/HR Subjective Mr. Mack continues to spike fevers daily. He has no other particular complaints. Review of Systems: Constitutional: + fever Eyes: No worsening of vision ENT: No unusual epistaxis Respiratory: No cough, No shortness of breath Cardiovascular: No chest pain Abdomen: No pain, No nausea, No GI bleeding Musculoskeletal: No joint pain, No muscle pain Male : No dysuria Heme: No abnormal bleeding/bruising Skin: No rash Vital Signs Vital Signs Past 12 Hours Date Time Temp Pulse Resp B/P (MAP) Pulse Ox O2 Delivery O2 Flow Rate FiO2 11/09/16 15:42 37.3 99 18 127/75 (92) 94 Room Air 11/09/16 09:30 36.8 11/09/16 08:30 Room Air 11/09/16 07:19 39.5 113 16 109/64 (79) 97 Room Air Physical Exam Constitutional: General Apperance: heathly-appearing Level of Distress: NAD Psychiatric: Mental Status: active & alert Orientation: oriented except where noted ENMT: pertinent finding (no mucositis, sclerae anicteric) Neck: trachea midline Lungs: Respiratory Effort: no dyspnea Auscuitation: breath sounds normal Cardiovascular: Heart Auscultation: RRR Abdomen: Inspection & Palpation: soft, no tenderness, guarding & rebound, pertinent finding (no organomegaly) Extremities: no edema Laboratory Last 24 Hours Test 11/09/16 05:11 White Blood Count 1.60 K/uL Red Blood Count 2.54 M/uL Hemoglobin 7.6 g/dL Hematocrit 22.8 % Mean Corpuscular Volume 89.8 fL Mean Corpuscular Hemoglobin 29.9 pg Mean Corpuscular Hemoglobin Concent 33.3 g/dl Platelet Count 88 K/uL Mean Platelet Volume 9.9 fL Neutrophils (%) (Auto) 59.4 % Lymphocytes (%) (Auto) 29.4 % Monocytes (%) (Auto) 10.6 % Eosinophils (%) (Auto) 0.6 % Basophils (%) (Auto) 0.0 % Neutrophils # (Auto) 0.95 K/uL Lymphocytes # (Auto) 0.47 K/uL Monocytes # (Auto) 0.17 K/uL Eosinophils # (Auto) 0.01 K/uL Basophils # (Auto) 0.00 K/uL RDW Standard Deviation 62.3 fL RDW Coefficient of Variation 19.2 % Immature Granulocyte % (Auto) 0.0 % Immature Granulocyte # (Auto) 0.00 K/uL Toxic Granulation 1+ Dohle Bodies 1+ Giant Platelets 1+ Anisocytosis PRESENT Sodium Level 135 mmol/L Potassium Level 4.4 mmol/L Chloride Level 101 mmol/L Carbon Dioxide Level 29 mmol/L Anion Gap 5.0 mmol/L Blood Urea Nitrogen 12 mg/dl Creatinine 0.79 mg/dl Est Creatinine Clear Calc Drug Dose 132.7 ml/min Estimated GFR () 146.7 Estimated GFR (Non- 126.6 BUN/Creatinine Ratio 14.7 Random Glucose 85 mg/dl Calcium Level 7.3 mg/dl Total Bilirubin 1.3 mg/dl Aspartate Amino Transf (AST/SGOT) 110 U/L Alanine Aminotransferase (ALT/SGPT) 78 U/L Alkaline Phosphatase 132 U/L Total Protein 5.2 gm/dl Albumin 2.2 gm/dl Globulin 3.0 gm/dl Albumin/Globulin Ratio 0.7 Rheumatoid Factor < 10.0 U/mL Assessment & Plan Mr. Mack continues to be febrile for an unexplained reason. His titers for CMV and HIV are negative. He is positive for EBV IgG and EBNA but negative for IgM, which is generally consistent with a previous infection. He is also negative by serology for parvovirus, toxoplasma, and viral hepatitis. His serologies for zoonotic infections (anaplasma, erlichia, and bartonella) are still pending, but his continued fevers despite doxycycline argue against this diagnosis. His lymph node core biopsy was non-diagnostic and the FNA revealed increased benign-appearing lymphocytes with a T-cell predominance by flow, but not in a malignant pattern (normal CD4:CD8 ratio, arguing against clonality). He underwent bone marrow biopsy yesterday. The official interpretation is still pending, but preliminarily the marrow is hyper-cellular (80-90% cellularity) with increased megakaryocytes but no other clearly abnormal features. At this point, the etiology of his fevers remains unclear. This would be a very unusual presentation for a lymphoproliferative disorder, though it is possible he has a splenic lymphoma and some of his cytopenias are related to hypersplenism. This would be difficult to diagnose, as splenic biopsies are dangerous. He does have questionable liver lesions and this might be the next place to look. I would also consult rheumatology to rule out inflammatory etiologies. His family is also requesting a possible transfer to a hospital closer to home. If he's going to be transferred, I would favor his going to a tertiary care, academic center. Transfer to another [facility] hospital likely won't offer him much that we cannot provide here.
--- NOTE | 2016-11-09 17:15 | Medical Student: [facility] ---
Med Student Progress Note Date of Service Nov 09, 2016. Subjective This is a 21 y/o male who is being worked up for persistent pancytopenia and neutropenic fevers. He continues to be intermittently febrile without focal symptoms. He has noted a cough that typically occurs in the mornings or at night. At this point, the discussion has turned to making a decision on where to potentially transfer him, as workup continues to be unrevealing up to this point. He denies chills, night sweats. He denies headache, vision changes, n/v/d , chest pain, SOB. He denies dysuria. All other systems reviewed and negative. Review of Systems Constitutional: + fever, No chills, No sweats, No weight loss Respiratory: No cough, No sputum, No wheezing Cardiac: No chest pain Abdomen: No pain, No nausea, No vomiting, No diarrhea Musculoskeletal: No joint pain Male : No dysuria Endo: No fatigue Skin: No rash Objective Vital Signs Date Time Temp Pulse Resp B/P (MAP) Pulse Ox O2 Delivery O2 Flow Rate FiO2 11/09/16 15:42 37.3 99 18 127/75 (92) 94 Room Air 11/09/16 09:30 36.8 11/09/16 08:30 Room Air 11/09/16 07:19 39.5 113 16 109/64 (79) 97 Room Air 11/09/16 00:00 99 Room Air 11/08/16 23:12 37.0 113 20 104/65 (78) 96 Room Air 11/08/16 19:35 39.0 Physical Exam General Appearance: WD/WN, no apparent distress ENT: TMs normal Neck: supple, thyroid normal, no JVD Respiratory/Chest: chest non-tender, no respiratory distress, no accessory muscle use, + decreased breath sounds (bases bilaterally diminished breath sounds ) Cardiovascular: regular rate, rhythm, no edema, no gallop Abdomen: normal bowel sounds, non tender, soft Extremities: normal range of motion, non-tender, normal inspection Neurologic/Psychiatric: alert, normal mood/affect, oriented x 3 Skin: normal color, warm/dry, no rash Lymphatic: + pertinent finding (right axillary lymphadenopathy ) Laboratory Results Last 24 Hours Test 11/09/16 05:11 White Blood Count 1.60 K/uL Red Blood Count 2.54 M/uL Hemoglobin 7.6 g/dL Hematocrit 22.8 % Mean Corpuscular Volume 89.8 fL Mean Corpuscular Hemoglobin 29.9 pg Mean Corpuscular Hemoglobin Concent 33.3 g/dl Platelet Count 88 K/uL Mean Platelet Volume 9.9 fL Neutrophils (%) (Auto) 59.4 % Lymphocytes (%) (Auto) 29.4 % Monocytes (%) (Auto) 10.6 % Eosinophils (%) (Auto) 0.6 % Basophils (%) (Auto) 0.0 % Neutrophils # (Auto) 0.95 K/uL Lymphocytes # (Auto) 0.47 K/uL Monocytes # (Auto) 0.17 K/uL Eosinophils # (Auto) 0.01 K/uL Basophils # (Auto) 0.00 K/uL RDW Standard Deviation 62.3 fL RDW Coefficient of Variation 19.2 % Immature Granulocyte % (Auto) 0.0 % Immature Granulocyte # (Auto) 0.00 K/uL Toxic Granulation 1+ Dohle Bodies 1+ Giant Platelets 1+ Anisocytosis PRESENT Sodium Level 135 mmol/L Potassium Level 4.4 mmol/L Chloride Level 101 mmol/L Carbon Dioxide Level 29 mmol/L Anion Gap 5.0 mmol/L Blood Urea Nitrogen 12 mg/dl Creatinine 0.79 mg/dl Est Creatinine Clear Calc Drug Dose 132.7 ml/min Estimated GFR () 146.7 Estimated GFR (Non- 126.6 BUN/Creatinine Ratio 14.7 Random Glucose 85 mg/dl Calcium Level 7.3 mg/dl Total Bilirubin 1.3 mg/dl Aspartate Amino Transf (AST/SGOT) 110 U/L Alanine Aminotransferase (ALT/SGPT) 78 U/L Alkaline Phosphatase 132 U/L Total Protein 5.2 gm/dl Albumin 2.2 gm/dl Globulin 3.0 gm/dl Albumin/Globulin Ratio 0.7 Rheumatoid Factor < 10.0 U/mL Medications Medications Administered Medications (Trade) Dose Ordered Sig/Ahsan Route Start Time Stop Time Status Last Admin Dose Admin Sodium Chloride 1,000 ml @ 999 mls/hr Q1H1M STAT IV 11/01/16 19:19 11/01/16 20:19 DC 11/01/16 19:19 999 MLS/HR Acetaminophen (Tylenol Tab) 1,000 mg NOW STAT PO 11/01/16 19:19 11/01/16 19:21 DC 11/01/16 19:31 1,000 MG Piperacillin Sod/ Tazobactam Sod (Zosyn Iv) 4.5 gm NOW STAT IV 11/01/16 21:23 11/01/16 21:24 DC 11/01/16 22:06 4.5 GM Acetaminophen (Tylenol Tab) 650 mg Q4H PRN PO 11/01/16 22:00 12/01/16 21:59 11/07/16 17:34 650 MG Piperacillin Sod/ Tazobactam Sod 4.5 gm/Dextrose 120 ml @ 30 mls/hr Q8H IV 11/02/16 02:00 11/02/16 09:10 DC 11/02/16 01:46 30 MLS/HR Levofloxacin 750 mg/Prmx 150 ml @ 100 mls/hr Q24H IV 11/01/16 23:00 11/05/16 13:32 DC 11/04/16 22:48 100 MLS/HR Vancomycin HCl 1600 mg/Sodium Chloride 532 ml @ 200 mls/hr TODAY@0930 ONCE IV 11/02/16 09:30 11/02/16 12:09 DC 11/02/16 09:40 200 MLS/HR Piperacillin Sod/ Tazobactam Sod 3.375 gm/Dextrose 115 ml @ 28.75 mls/ hr Q8@0200,1000,1800 IV 11/02/16 10:00 11/05/16 13:32 DC 11/05/16 09:56 28.75 MLS/HR Vancomycin HCl 1000 mg/Sodium Chloride 270 ml @ 125 mls/hr Q8@0200,1000,1800 IV 11/02/16 18:00 11/05/16 13:32 DC 11/05/16 09:56 125 MLS/HR Doxycycline Hyclate (Vibramycin Cap) 100 mg BID PO 11/02/16 13:00 11/12/16 12:59 11/09/16 07:36 100 MG Acyclovir Sodium 500 mg/Dextrose 110 ml @ 110 mls/hr Q8H IV 11/03/16 11:00 11/03/16 16:08 DC 11/03/16 11:33 110 MLS/HR Filgrastim (Neupogen Sq) 480 mcg TODAY@0800,1200 SC 11/03/16 12:00 11/04/16 09:00 DC 11/04/16 07:48 480 MCG Acyclovir Sodium 700 mg/Dextrose 114 ml @ 110 mls/hr Q8H IV 11/03/16 19:00 11/05/16 13:32 DC 11/05/16 12:15 110 MLS/HR Cyanocobalamin (Vitamin B-12 Tab) 1,000 mcg QAM PO 11/06/16 08:00 12/06/16 07:59 11/09/16 07:36 1,000 MCG Cyanocobalamin (Vitamin B-12 Tab) 1,000 mcg 1210 ONCE PO 11/05/16 12:10 11/05/16 13:02 DC 11/05/16 14:04 1,000 MCG Filgrastim (Neupogen Sq) 300 mcg DAILY@1400 SQ 11/05/16 14:00 12/05/16 13:59 Future Hold 11/05/16 14:06 300 MCG Acetaminophen 650 mg/Empty Bag 65 ml @ 260 mls/hr Q6H PRN IV 11/05/16 19:15 12/05/16 19:14 11/09/16 07:36 260 MLS/HR Ibuprofen (Advil Tab) 400 mg NOW STAT PO 11/06/16 23:13 11/06/16 23:20 DC 11/06/16 23:43 400 MG Potassium Chloride/Sodium Chloride 1,000 ml @ 150 mls/hr Q6H40M ONCE IV 11/07/16 12:00 11/07/16 18:39 DC 11/07/16 12:25 150 MLS/HR Sodium Chloride 1,000 ml @ 250 mls/hr Q4H ONCE IV 11/08/16 08:00 11/08/16 11:59 DC 11/08/16 08:57 250 MLS/HR Assessment and Plan Assessment and Plan: This is a 21 year old male being evaluated for pancytopenia and recurrent neutropenic fevers. He has been symptomatic with epistaxis and fevers, rigors, but continues to report feeling well overall. The differential continues to include but is not limited to infection v. malignancy v. acquired/congenital, it seems that infection is becoming less likely. With elevated SUNNY and disseminated hepatic/splenic lesions, may be worthwhile to consider extrapulmonary sarcoidosis. Other potential, but more rare, illnesses may also be at play, such as Gaucher/lysosomal storage disorders, rheumatologic disorders , etc. A bone marrow biopsy has been performed and will hopefully rule out more serious illnesses. However, if this is non diagnostic, it may be prudent to continue his workup at a tertiary care center. 1. Pancytopenia and Neutropenic Fever -ANC <1, placed on neutropenic precautions. -Antibiotics have been discontinued except for Doxycycline, which will be kept to cover any lyme-borne illnesses such as erlichiosis, anaplasmosis, lymes disease. -ID titers pending (AFB culture, B. henselae pending) -Hepatitis negative; HIV negative; Lyme negative; Monospot negative; influenza negative, EBV negative, CMV negative, Parvovirus negative, Toxoplasma antibody negative. -Rheumatologic eval demonstratres normal ESR, low IgM, IgG wnl. -RF pending. Rheumatology consult pending. -Continue to monitor CBC. -Abdominal imaging demonstrates hepatosplenomegaly with innumerable splenic and hepatic lesions. -Right axillary lymph node core biopsy was non diagnostic. FNA demonstrated T lympocytes that were not monoclonal in etiology. -Bone marrow biopsy complete and tolerated well. Prelim results demonstrate hypercellularity without abnormal morphology. No granulomas observed. Flow cytometry pending. 2. Diminished breath sounds -xray demonstrates b/l pleural effusion r>l with associated consolidation. -May be consistent with pneumonia. -Can consider adding abx to cover for HCAP- Vanc, Zosyn -Continue to encourage spirometry and ambulation 3. Elevated LFTs, hypoalbuminemia -Liver U/S demonstrates several lesions - Hepatitis panel negative -AST, ALT, T. Mitesh trending down. -Peripheral smear, LDH, Yohannes to monitor for manifestations of hemolytic anemia. -Continue to monitor liver enzymes 3. Hypoalbuminemia, B12 Deficiency -Continue B12 1000mg -Encourage fluid/food intake Continued [facility] stay due to: fever, other (pancytopenia work-up) Discharge planning: home Continued [facility] stay due to: fever, other (pancytopenia work-up) Discharge planning: home
[2016-11-09 17:35] LABS: ANAPLASMA PHAGOCYTOPHIL IGG <1:64 (<1:64); ANAPLASMA PHAGOCYTOPHIL IGM <1:20 (<1:20); EHRLICHIA CHAFF IGG AB <1:64 (<1:64); EHRLICHIA CHAFF IGM AB <1:20 (<1:20)
--- NOTE | 2016-11-09 18:33 | Family Medicine Progress Note ---
Progress Note Date of Service Nov 09, 2016. Subjective Pt evaluation today including: conversation w/ patient, physical exam, chart review, lab review Pain: None Voiding: no voiding problems, no incontinence No complaints at this time Did have fevers in the past 24 hours Site of BM biopsy site is slightly sore but doing well overall Parents at bedside; wondering about disposition at this stage Additional Comments: A 10 point review of systems was negative unless stated above. Medications Current Inpatient Medications Medications (Trade) Dose Ordered Sig/Ahsan Route Start Time Stop Time Status Last Admin Dose Admin Acetaminophen (Tylenol Tab) 650 mg Q4H PRN PO 11/01/16 22:00 12/01/16 21:59 11/07/16 17:34 650 MG Al Hydrox/Mg Hydrox/Simethicone (Maalox Max Susp) 15 ml Q4H PRN PO 11/01/16 22:00 12/01/16 21:59 Magnesium Hydroxide (Milk Of Magnesia Susp) 30 ml Q6H PRN PO 11/01/16 22:00 12/01/16 21:59 Ondansetron HCl (Zofran Inj) 4 mg Q6H PRN IV 11/01/16 22:00 12/01/16 21:59 Doxycycline Hyclate (Vibramycin Cap) 100 mg BID PO 11/02/16 13:00 11/12/16 12:59 11/09/16 07:36 100 MG Cyanocobalamin (Vitamin B-12 Tab) 1,000 mcg QAM PO 11/06/16 08:00 12/06/16 07:59 11/09/16 07:36 1,000 MCG Filgrastim (Neupogen Sq) 300 mcg DAILY@1400 SQ 11/05/16 14:00 12/05/16 13:59 Future Hold 11/05/16 14:06 300 MCG Acetaminophen 650 mg/Empty Bag 65 ml @ 260 mls/hr Q6H PRN IV 11/05/16 19:15 12/05/16 19:14 11/09/16 07:36 260 MLS/HR Objective Vital Signs Date Time Temp Pulse Resp B/P (MAP) Pulse Ox O2 Delivery O2 Flow Rate FiO2 11/09/16 15:42 37.3 99 18 127/75 (92) 94 Room Air 11/09/16 09:30 36.8 11/09/16 08:30 Room Air 11/09/16 07:19 39.5 113 16 109/64 (79) 97 Room Air 11/09/16 00:00 99 Room Air 11/08/16 23:12 37.0 113 20 104/65 (78) 96 Room Air 11/08/16 19:35 39.0 Physical Exam General Appearance: WD/WN, no apparent distress, + thin Eyes: normal inspection, EOMI ENT: hearing grossly normal, pharynx normal Neck: supple, no adenopathy, no JVD Respiratory/Chest: + pertinent finding (diminished breath sounds at the bases; R > L) Cardiovascular: no gallop, no murmur, + tachycardia Abdomen: normal bowel sounds, non tender, soft Extremities: non-tender, + pedal edema (trace at ankle joint bilaterally) Neurologic/Psychiatric: alert, normal mood/affect, oriented x 3 Skin: normal color, warm/dry, no rash Lymphatic: no adenopathy Laboratory Results Last 24 Hours Test 11/09/16 05:11 White Blood Count 1.60 K/uL Red Blood Count 2.54 M/uL Hemoglobin 7.6 g/dL Hematocrit 22.8 % Mean Corpuscular Volume 89.8 fL Mean Corpuscular Hemoglobin 29.9 pg Mean Corpuscular Hemoglobin Concent 33.3 g/dl Platelet Count 88 K/uL Mean Platelet Volume 9.9 fL Neutrophils (%) (Auto) 59.4 % Lymphocytes (%) (Auto) 29.4 % Monocytes (%) (Auto) 10.6 % Eosinophils (%) (Auto) 0.6 % Basophils (%) (Auto) 0.0 % Neutrophils # (Auto) 0.95 K/uL Lymphocytes # (Auto) 0.47 K/uL Monocytes # (Auto) 0.17 K/uL Eosinophils # (Auto) 0.01 K/uL Basophils # (Auto) 0.00 K/uL RDW Standard Deviation 62.3 fL RDW Coefficient of Variation 19.2 % Immature Granulocyte % (Auto) 0.0 % Immature Granulocyte # (Auto) 0.00 K/uL Toxic Granulation 1+ Dohle Bodies 1+ Giant Platelets 1+ Anisocytosis PRESENT Sodium Level 135 mmol/L Potassium Level 4.4 mmol/L Chloride Level 101 mmol/L Carbon Dioxide Level 29 mmol/L Anion Gap 5.0 mmol/L Blood Urea Nitrogen 12 mg/dl Creatinine 0.79 mg/dl Est Creatinine Clear Calc Drug Dose 132.7 ml/min Estimated GFR () 146.7 Estimated GFR (Non- 126.6 BUN/Creatinine Ratio 14.7 Random Glucose 85 mg/dl Calcium Level 7.3 mg/dl Total Bilirubin 1.3 mg/dl Aspartate Amino Transf (AST/SGOT) 110 U/L Alanine Aminotransferase (ALT/SGPT) 78 U/L Alkaline Phosphatase 132 U/L Total Protein 5.2 gm/dl Albumin 2.2 gm/dl Globulin 3.0 gm/dl Albumin/Globulin Ratio 0.7 Rheumatoid Factor < 10.0 U/mL Assessment and Plan 21 year old male being worked-up for new onset lower extremity edema bilaterally and pancytopenic at presentation. Our plan for him is as follows: Pancytopenia - DDx: Lymphoproliferative disorder vs viral suppression vs inflammatory/ autoimmune etiologies currently being considered - Abnormal CT with innumerable ill define splenic and hepatic lesions - WBC improved slightly to 1.6 but ANC stable at 0.95; patient back on contact precautions - Hb stable at 7.6 today; transfuse if < 6.5 or if symptoms of anemia; no indication to transfuse at this time - Hematological evaluation Multiple evaluations without conclusive evidence for etiology. Smear, Retic Count Bone marrow biopsy done today, results pending - Infection Panel evaluation Negative studies include: CMV, Parvovirus, EBV Quantiferon, HIV, Lyme, Bartonella AFB culture pending; Toxoplasma negative B. henselae, Anaplasmosis, Ehrlichiosis all negative - Rheumatological evaluation AMADEO negative; ESR negative x 2 IgM low, IgG WNL Rh Factor negative SUNNY level elevated at 80 without clear significant to presentation - Nutritional Evaluation Iron studies: Ferritin elevation may reflect acute phase reactant Normal B12 and Folate - Endocrine Normal TSH - Toxic: negative lead level Neutropenic Fever - Tylenol/Motrin for fever - No indication for IV antibiotics - Continue Doxycycline coverage for possible tick-borne illness - Continue to have fevers Likely having increased insensible losses; remains slightly tachycardic Will give 1 L NSS bolus today; re-assess tomorrow Diminished breath sounds - Bilateral but R > L - CXR shows stable effusions and likely atelectasis - has been stable since 11/02; do not suspect pneumonia at this time; no antibiotics at this time Hepatic Dysfunction - As noted by Transaminitis; hypoalbuminemia and Hypercoagulability - Infection vs Infiltration (per lesions on CT) - INR 1.3 today - Daily CMP Bilateral pedal edema - Stable, markedly improved since admission - Link to pancytopenia unclear at this time juncture; possibly 2/2 hepatic dysfunction DVT Prophylaxis - SCD - Physiologically anticoagulated at this time; no pharmacological prophylaxis Disposition In discussion with hematology, we would recommend proceeding with transferring patient to tertiary care facility. I had an hourlong discussion with both Felipe and parents to determine preferences. Parents want Felipe to be transferred to [place] as it is close to their home and here they are paying for accommodations. I have expressed my concern to transfer long distance. Insurance would not cover transfer. I would be reluctant to discharge patient and have him/family arrange their own transport to [place] due to infection risk. Father very concerned about finances of remaining in [place]. I have proposed the possibility of having him sent to [facility] and having parents go back to [place] if paying for accommodations here is becoming increasingly difficulty. Mother states that she would be amenable to [facility] if they can make arrangements to provide accommodations. Case management was gone for the day when I went to inquire. Have told family it may be after the weekend that we get him transferred to another facility. Reassured that medically, there is no emergent indication to transfer. Family in agreement with plan. Resident Physician Supervision Note: I was present with PGY2 Dr. Caden Cates during the history and exam. I discussed the case with the resident and agree with the findings and plan as documented in the note. Any exceptions or clarifications are listed here: none. No new complaints today. Continues with fevers. He states "I feel ok." VSS except ongoing fever and tachycardia gen - NAD mouth - no mucositis heart - tachy, s1, s2 lungs - CTA b/l abd - hepatosplenomegaly (mild), no ascites ext - trace to 1+ edema b/l skin - no rash musculo - no synovitis of any joint labs - ongoing pancytopenia - ANC largely unchanged Cr normal LFTs mildly high but unchanged Ehrlichiosis titer neg; anaplasmosis titer neg; CMV/EBV/parvo neg prelim bone marrow bx results WITHOUT signs of malignancy A/P: 1. pancytopenia with neutropenia - ongoing; extensive w/u to date. 2. fever - ongoing. 3. hypoalbuminemia - ongoing. 4. low-normal b12 level 5. elevated SUNNY level - significance unclear. Pancytopenia has been associated w/ sarcoid. However, at this point, it is looking unlikely this is sarcoid. 6. abnormal LFTs - likely reactive to the underlying process. Late this afternoon Felipe was seen by Dr. Drew from [facility] rheumatology. Dr. Cates and I had a lengthy discussion with Dr. Drew after she evaluated Felipe. 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 His constellation of symptoms, signs, labs, etc do in fact support such a dx. She recommended the implementation of 1mg/kg daily of solumedrol. This was ordered starting tonight. Chest x-ray reviewed - mild right-sided effusion; doubt pneumonia. Defer on antibiotics. Can likely d/c the doxy since all tick-borne labs have returned negative and he remains febrile despite 7+ days of doxy. Mother/father/patient EXTENSIVELY updated by Dr. Cates today. Total time today including MULTIPLE Visits, Numerous discussions with GI/heme/ onc/ID/rheum, multiple discussions with pt/family - nearly 120 minutes. Emre Daigle MD Continued [facility] stay due to: fever, abnormal vital signs Discharge planning: uncertain
--- NOTE | 2016-11-09 19:35 | Rheumatology Consultation ---
Rheumatology Consultation Date of Consultation: Nov 09, 2016. Reason for Consultation: Fever of unknown origin History of Present Illness 22 year old [employer] student admitted on 11/01/16 after presenting with 4 days of lower extremity edema and was found to be febrile. History obtained from the patient, his mother, and review of his records. He first noted foot swelling the Saturday prior to admission. He went to [facility] for further evaluation and was noted to be febrile thus was advised to present to the ED for further evaluation. In addition to fevers, his labs were notable for pancytopenia. Imaging showed pleural effusion and multiple lesions in his liver and spleen. He was also noted to have axillary lymphadenopathy. He denies prior illness, sick contacts, or travel before presenting to the ED. He has been seen by GI, Oncology/Hematology, and Infectious disease. Workup for acute infection has been negative. Lymph node biopsy was unrevealing as was his bone marrow biopsy. He was treated with antibiotics without improvement of his symptoms. Today, he notes that he feels well. He now does get warm when his fever occurs. He has not noticed any rashes. He denies prior episodes of fever. He has not had any joint pain, joint swelling, ,eye inflammation, oral/nasal ulcers , photosensitivity, GI or symptoms prior to his admission. During his stay here, he had brief episode of nose bleeding and one episode of nonbilious, nonbloody vomiting. He does not take any medications routinely. Social History Smoking Status: Never Smoker History of Alcohol Use: Yes (occasional.) Drug Use: none Marital Status: single Occupation Status: [employer] student Review of Systems Constitutional: + fever, + chills, No sweats, No weight loss, No weakness, No fatigue Eyes: No worsening of vision, No eye pain, No redness ENT: + unusual epistaxis, No hearing loss, No nasal symptoms, No sore throat, No tinnitus Respiratory: No cough, No sputum, No wheezing, No shortness of breath, No dyspnea on exertion Cardiac: + edema, No chest pain, No orthopnea, No palpitations Abdomen: + vomiting, No pain, No diarrhea, No constipation Musculoskeletal: No joint pain, No muscle pain, No swelling Male : No dysuria, No urinary frequency Neurologic: No memory loss Psychiatric: No depression symptoms Heme: No abnormal bleeding/bruising Endo: No fatigue Skin: No rash Allergies Coded Allergies: No Known Allergies (Unverified , 11/01/16) Medications Current Inpatient Medications Medications (Trade) Dose Ordered Sig/Ahsan Route Start Time Stop Time Status Last Admin Dose Admin Acetaminophen (Tylenol Tab) 650 mg Q4H PRN PO 11/01/16 22:00 12/01/16 21:59 11/07/16 17:34 650 MG Al Hydrox/Mg Hydrox/Simethicone (Maalox Max Susp) 15 ml Q4H PRN PO 11/01/16 22:00 12/01/16 21:59 Magnesium Hydroxide (Milk Of Magnesia Susp) 30 ml Q6H PRN PO 11/01/16 22:00 12/01/16 21:59 Ondansetron HCl (Zofran Inj) 4 mg Q6H PRN IV 11/01/16 22:00 12/01/16 21:59 Doxycycline Hyclate (Vibramycin Cap) 100 mg BID PO 11/02/16 13:00 11/12/16 12:59 11/09/16 07:36 100 MG Cyanocobalamin (Vitamin B-12 Tab) 1,000 mcg QAM PO 11/06/16 08:00 12/06/16 07:59 11/09/16 07:36 1,000 MCG Filgrastim (Neupogen Sq) 300 mcg DAILY@1400 SQ 11/05/16 14:00 12/05/16 13:59 Future Hold 11/05/16 14:06 300 MCG Acetaminophen 650 mg/Empty Bag 65 ml @ 260 mls/hr Q6H PRN IV 11/05/16 19:15 12/05/16 19:14 11/09/16 07:36 260 MLS/HR Physical Exam Date Time Temp Pulse Resp B/P (MAP) Pulse Ox O2 Delivery O2 Flow Rate FiO2 11/09/16 15:42 37.3 99 18 127/75 (92) 94 Room Air 11/09/16 09:30 36.8 11/09/16 08:30 Room Air 11/09/16 07:19 39.5 113 16 109/64 (79) 97 Room Air 11/09/16 00:00 99 Room Air 11/08/16 23:12 37.0 113 20 104/65 (78) 96 Room Air 11/08/16 19:35 39.0 Eyes: bilateral eyes normal inspection, bilateral eyes EOMI ENT: normal ENT inspection, hearing grossly normal Neck: supple, no adenopathy, thyroid normal Respiratory: chest non-tender, lungs clear, normal breath sounds, + decreased breath sounds (at the bases) Cardiovascular: + tachycardia Abdomen: normal bowel sounds, non tender Neurologic/Psychiatric: no motor/sensory deficits, alert, normal mood/affect, oriented x 3 Skin: normal color, warm/dry, no rash Laboratory Results Last 24 Hours Test 11/09/16 05:11 White Blood Count 1.60 K/uL Red Blood Count 2.54 M/uL Hemoglobin 7.6 g/dL Hematocrit 22.8 % Mean Corpuscular Volume 89.8 fL Mean Corpuscular Hemoglobin 29.9 pg Mean Corpuscular Hemoglobin Concent 33.3 g/dl Platelet Count 88 K/uL Mean Platelet Volume 9.9 fL Neutrophils (%) (Auto) 59.4 % Lymphocytes (%) (Auto) 29.4 % Monocytes (%) (Auto) 10.6 % Eosinophils (%) (Auto) 0.6 % Basophils (%) (Auto) 0.0 % Neutrophils # (Auto) 0.95 K/uL Lymphocytes # (Auto) 0.47 K/uL Monocytes # (Auto) 0.17 K/uL Eosinophils # (Auto) 0.01 K/uL Basophils # (Auto) 0.00 K/uL RDW Standard Deviation 62.3 fL RDW Coefficient of Variation 19.2 % Immature Granulocyte % (Auto) 0.0 % Immature Granulocyte # (Auto) 0.00 K/uL Toxic Granulation 1+ Dohle Bodies 1+ Giant Platelets 1+ Anisocytosis PRESENT Sodium Level 135 mmol/L Potassium Level 4.4 mmol/L Chloride Level 101 mmol/L Carbon Dioxide Level 29 mmol/L Anion Gap 5.0 mmol/L Blood Urea Nitrogen 12 mg/dl Creatinine 0.79 mg/dl Est Creatinine Clear Calc Drug Dose 132.7 ml/min Estimated GFR () 146.7 Estimated GFR (Non- 126.6 BUN/Creatinine Ratio 14.7 Random Glucose 85 mg/dl Calcium Level 7.3 mg/dl Total Bilirubin 1.3 mg/dl Aspartate Amino Transf (AST/SGOT) 110 U/L Alanine Aminotransferase (ALT/SGPT) 78 U/L Alkaline Phosphatase 132 U/L Total Protein 5.2 gm/dl Albumin 2.2 gm/dl Globulin 3.0 gm/dl Albumin/Globulin Ratio 0.7 Rheumatoid Factor < 10.0 U/mL Assessment & Plan Assessment & Plan: 22 year old male with recurrent fevers, pancytopenia with neutropenia, transamintis, high ferritin, and lymphadenopathy and splenomegaly. Infectious workup has been unrevealing and search for malignancy has not yielded positive results. 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 I question a component of macrophage activating syndrome given his pancytopenia. He did not respond to antibiotics. It would be reasonable at this time to try a course of steroids. Recommendations 1. Would start IV Solu-medrol at 60 mg daily with first dose now, then given every morning. 2. Monitor fevers and continue neutropenic precautions. 3. Monitor CBC and LFTs; follow up any pending tests 4. If he remains afebrile for 24 hours, can then transition to oral prednisone at 60 mg daily with breakfast with plan to taper as an outpatient. I discussed the above with his primary team and will continue to follow closely.
[2016-11-09] MEDS ORDERED: PANTOprazole SOD 40 MG TAB PO ONE (20:01)
[2016-11-09] MEDS ORDERED: METHYLPREDNISOLONE IV 60 MG in SYRINGE 0 ML IV ONE (20:30)
[2016-11-10] VITALS (7 sets, daily range): BP systolic 93–101; BP diastolic 58–67; PULSE 72–95; TEMP 36–36.8; O2SAT 95–100
[2016-11-10 06:22] LABS: BUN/CREATININE RATIO 15.9 (10-20); CALCIUM 7.2 mg/dl (8.5-10.1); CREATININE 0.77 mg/dl (0.60-1.40); POTASSIUM 4.2 mmol/L (3.5-5.1)
[2016-11-10 06:24] LABS: ALB/GLOB RATIO 0.7 (0.9-2)
[2016-11-10 06:26] LABS: HEMATOCRIT 23.6 % (42-52); MEAN CELL VOLUME 90.1 fL (80-100); MEAN CORPUSCULAR HEMOGLOBIN 29.4 pg (25-34); MEAN CORPUSCULAR HGB CONC 32.6 g/dl (32-36); MEAN PLATELET VOLUME 10.3 fL (7.4-10.4); PLATELET COUNT 75 K/uL (130-400); RED BLOOD COUNT 2.62 M/uL (4.7-6.1); WHITE BLOOD COUNT 0.89 K/uL (4.8-10.8)
[2016-11-10 06:27] LABS: ANISOCYTOSIS PRESENT; COMPLETE YES; DOHLE BODIES OCCASIONAL; IG% 1.1 %; LARGE PLATELETS 1+; LYMPH % 24.7 %; LYMPH ABS # 0.22 K/uL (1.2-3.4); MONO % 2.2 %; OVALOCYTES 1+; POLYCHROMASIA 1+; TEAR DROP CELLS 1+; TOXIC GRANULATION OCCASIONAL
[2016-11-10] MEDS: DOXYCYCLINE HYCLATE 100 MG CAP PO SCH ×2 (08:50→19:49)
[2016-11-10] MEDS: METHYLPREDNISOLONE IV 60 MG in SYRINGE 0 ML IV SCH (08:50)
[2016-11-10] MEDS: CYANOCOBALAMIN 500 MCG TAB (VIT B-12) PO SCH (08:50)
[2016-11-10] MEDS: PANTOprazole SOD 40 MG TAB PO SCH (08:50)
--- NOTE | 2016-11-10 11:59 | Hematology/Oncology Prog Note ---
Hematology/Onc Progress Note Date of Service Nov 10, 2016. Diagnoses Fevers Pancytopenia Medications Medications Administered Medications (Trade) Dose Ordered Sig/Ahsan Route Start Time Stop Time Status Last Admin Dose Admin Sodium Chloride 1,000 ml @ 999 mls/hr Q1H1M STAT IV 11/01/16 19:19 11/01/16 20:19 DC 11/01/16 19:19 999 MLS/HR Acetaminophen (Tylenol Tab) 1,000 mg NOW STAT PO 11/01/16 19:19 11/01/16 19:21 DC 11/01/16 19:31 1,000 MG Piperacillin Sod/ Tazobactam Sod (Zosyn Iv) 4.5 gm NOW STAT IV 11/01/16 21:23 11/01/16 21:24 DC 11/01/16 22:06 4.5 GM Acetaminophen (Tylenol Tab) 650 mg Q4H PRN PO 11/01/16 22:00 12/01/16 21:59 11/07/16 17:34 650 MG Piperacillin Sod/ Tazobactam Sod 4.5 gm/Dextrose 120 ml @ 30 mls/hr Q8H IV 11/02/16 02:00 11/02/16 09:10 DC 11/02/16 01:46 30 MLS/HR Levofloxacin 750 mg/Prmx 150 ml @ 100 mls/hr Q24H IV 11/01/16 23:00 11/05/16 13:32 DC 11/04/16 22:48 100 MLS/HR Vancomycin HCl 1600 mg/Sodium Chloride 532 ml @ 200 mls/hr TODAY@0930 ONCE IV 11/02/16 09:30 11/02/16 12:09 DC 11/02/16 09:40 200 MLS/HR Piperacillin Sod/ Tazobactam Sod 3.375 gm/Dextrose 115 ml @ 28.75 mls/ hr Q8@0200,1000,1800 IV 11/02/16 10:00 11/05/16 13:32 DC 11/05/16 09:56 28.75 MLS/HR Vancomycin HCl 1000 mg/Sodium Chloride 270 ml @ 125 mls/hr Q8@0200,1000,1800 IV 11/02/16 18:00 11/05/16 13:32 DC 11/05/16 09:56 125 MLS/HR Doxycycline Hyclate (Vibramycin Cap) 100 mg BID PO 11/02/16 13:00 11/12/16 12:59 11/10/16 08:50 100 MG Acyclovir Sodium 500 mg/Dextrose 110 ml @ 110 mls/hr Q8H IV 11/03/16 11:00 11/03/16 16:08 DC 11/03/16 11:33 110 MLS/HR Filgrastim (Neupogen Sq) 480 mcg TODAY@0800,1200 SC 11/03/16 12:00 11/04/16 09:00 DC 11/04/16 07:48 480 MCG Acyclovir Sodium 700 mg/Dextrose 114 ml @ 110 mls/hr Q8H IV 11/03/16 19:00 11/05/16 13:32 DC 11/05/16 12:15 110 MLS/HR Cyanocobalamin (Vitamin B-12 Tab) 1,000 mcg QAM PO 11/06/16 08:00 12/06/16 07:59 11/10/16 08:50 1,000 MCG Cyanocobalamin (Vitamin B-12 Tab) 1,000 mcg 1210 ONCE PO 11/05/16 12:10 11/05/16 13:02 DC 11/05/16 14:04 1,000 MCG Filgrastim (Neupogen Sq) 300 mcg DAILY@1400 SQ 11/05/16 14:00 12/05/16 13:59 Future Hold 11/05/16 14:06 300 MCG Acetaminophen 650 mg/Empty Bag 65 ml @ 260 mls/hr Q6H PRN IV 11/05/16 19:15 12/05/16 19:14 11/09/16 22:01 260 MLS/HR Ibuprofen (Advil Tab) 400 mg NOW STAT PO 11/06/16 23:13 11/06/16 23:20 DC 11/06/16 23:43 400 MG Potassium Chloride/Sodium Chloride 1,000 ml @ 150 mls/hr Q6H40M ONCE IV 11/07/16 12:00 11/07/16 18:39 DC 11/07/16 12:25 150 MLS/HR Sodium Chloride 1,000 ml @ 250 mls/hr Q4H ONCE IV 11/08/16 08:00 11/08/16 11:59 DC 11/08/16 08:57 250 MLS/HR Methylprednisolone Sodium Succinate 60 mg/Syringe 0.96 ml @ 1.5 mls/min DAILY IV 11/10/16 08:00 12/10/16 07:59 11/10/16 08:50 1.5 MLS/MIN Methylprednisolone Sodium Succinate 60 mg/Syringe 0.96 ml @ 1.5 mls/min 2030 ONCE IV 11/09/16 20:30 11/09/16 20:31 DC 11/09/16 21:48 1.5 MLS/MIN Pantoprazole Sodium (Protonix Tab) 40 mg QAM PO 11/10/16 08:00 12/10/16 07:59 11/10/16 08:50 40 MG Pantoprazole Sodium (Protonix Tab) 40 mg 2001 ONCE PO 11/09/16 20:01 11/09/16 20:04 DC 11/09/16 21:48 40 MG Subjective Mr. Mack continues to spike fevers daily. His counts are down somewhat as well. He has no new symptoms to report and his energy is good overall. Review of Systems: Constitutional: + fever, No fatigue Respiratory: No cough, No shortness of breath Cardiovascular: No chest pain Abdomen: No pain, No nausea, No diarrhea Musculoskeletal: No joint pain, No muscle pain Male : No dysuria Neurologic: No paralysis, No weakness Heme: No abnormal bleeding/bruising Skin: No rash Vital Signs Vital Signs Past 12 Hours Date Time Temp Pulse Resp B/P (MAP) Pulse Ox O2 Delivery O2 Flow Rate FiO2 11/10/16 09:00 36.6 11/10/16 08:00 99 Room Air 11/10/16 07:24 36.0 72 18 93/58 (70) 99 11/10/16 00:35 36.8 95 20 95 Room Air 11/10/16 00:00 Room Air Physical Exam Constitutional: General Apperance: heathly-appearing Level of Distress: NAD Psychiatric: Mental Status: active & alert Orientation: oriented except where noted ENMT: pertinent finding (no mucositis, sclerae anicteric) Neck: trachea midline Lungs: Respiratory Effort: no dyspnea Auscuitation: breath sounds normal Cardiovascular: Heart Auscultation: RRR Abdomen: Inspection & Palpation: soft, no tenderness, guarding & rebound, pertinent finding (no organomegaly) Extremities: no edema Laboratory Last 24 Hours Test 11/10/16 05:21 White Blood Count 0.89 K/uL Red Blood Count 2.62 M/uL Hemoglobin 7.7 g/dL Hematocrit 23.6 % Mean Corpuscular Volume 90.1 fL Mean Corpuscular Hemoglobin 29.4 pg Mean Corpuscular Hemoglobin Concent 32.6 g/dl Platelet Count 75 K/uL Mean Platelet Volume 10.3 fL Neutrophils (%) (Auto) 72.0 % Lymphocytes (%) (Auto) 24.7 % Monocytes (%) (Auto) 2.2 % Eosinophils (%) (Auto) 0.0 % Basophils (%) (Auto) 0.0 % Neutrophils # (Auto) 0.64 K/uL Lymphocytes # (Auto) 0.22 K/uL Monocytes # (Auto) 0.02 K/uL Eosinophils # (Auto) 0.00 K/uL Basophils # (Auto) 0.00 K/uL RDW Standard Deviation 63.3 fL RDW Coefficient of Variation 19.3 % Immature Granulocyte % (Auto) 1.1 % Immature Granulocyte # (Auto) 0.01 K/uL Toxic Granulation OCCASIONAL Dohle Bodies OCCASIONAL Large Platelets 1+ Polychromasia 1+ Anisocytosis PRESENT Tear Drop Cells 1+ Ovalocytes 1+ Sodium Level 140 mmol/L Potassium Level 4.2 mmol/L Chloride Level 104 mmol/L Carbon Dioxide Level 29 mmol/L Anion Gap 7.0 mmol/L Blood Urea Nitrogen 12 mg/dl Creatinine 0.77 mg/dl Est Creatinine Clear Calc Drug Dose 136.1 ml/min Estimated GFR () 148.2 Estimated GFR (Non- 127.9 BUN/Creatinine Ratio 15.9 Random Glucose 141 mg/dl Calcium Level 7.2 mg/dl Total Bilirubin 1.3 mg/dl Aspartate Amino Transf (AST/SGOT) 86 U/L Alanine Aminotransferase (ALT/SGPT) 71 U/L Alkaline Phosphatase 143 U/L Total Protein 5.3 gm/dl Albumin 2.2 gm/dl Globulin 3.1 gm/dl Albumin/Globulin Ratio 0.7 HIV (1&2) Ab and P24 Ag, 4th Gener NEG Assessment & Plan Mr. Mack continues to be febrile for an unexplained reason. His titers for CMV and HIV are negative. He is positive for EBV IgG and EBNA but negative for IgM, which is generally consistent with a previous infection. He is also negative by serology for parvovirus, toxoplasma, and viral hepatitis. His serologies for zoonotic infections (anaplasma, erlichia, and bartonella) are still pending, but his continued fevers despite doxycycline argue against this diagnosis. His lymph node core biopsy was non-diagnostic and the FNA revealed increased benign-appearing lymphocytes with a T-cell predominance by flow, but not in a malignant pattern (normal CD4:CD8 ratio, arguing against clonality). He underwent bone marrow biopsy yesterday. The official interpretation is still pending, but preliminarily the marrow is hyper-cellular (80-90% cellularity) with increased megakaryocytes but no other clearly abnormal features. His bone marrow biopsy confirms the absence of a marrow failure state. Thus, his cytopenias are secondary to peripheral destruction, likely in his spleen. He has no symptoms suggestive of a malignancy. Rheumatology saw him and raised the possibility of hyperinflammatory states like Still's disease, macrophage activation syndrome, and HLH. He has no hemophagocytosis in his marrow and his clinical picture is not really consistent with this diagnosis. He also has no rash or arthralgias to go along with Still's. Also, his rheumatoid factor was negative. However, I think the possiblity of MAS makes sense, possibly triggered by an acute viral illness. Rheum suggested starting steroids, which I think is appropriate. If he responds, his counts should start to recover over the coming days to a week or so.
--- NOTE | 2016-11-10 20:51 | Progress Note ---
Subjective Date of Service: Nov 10, 2016. Subjective Pt evaluation today including: conversation w/ patient, conversation w/ family (mother, father), physical exam, chart review, lab review, conversation w/ applications sales consultant (heme/onc), review of inpatient medication list Pain: denies PO Intake: improved - eating nearly 100% of meals Voiding: no voiding problems c/o LE edema, worse as the day went on fevers overnight, but none during the daytime yet today he has more energy - he asks to "go to the gym" today no new symptoms/complaints Problem List Medical Problems: (1) Elevated liver enzymes Status: Acute (2) Swelling of lower extremity Status: Acute Review of Systems Constitutional: + fever, No chills, No sweats Respiratory: + cough (scant), No shortness of breath Cardiac: + edema, No chest pain, No orthopnea Abdomen: No pain, No nausea, No vomiting Musculoskeletal: No joint pain Male : No dysuria Skin: No rash Objective Vital Signs Date Time Temp Pulse Resp B/P (MAP) Pulse Ox O2 Delivery O2 Flow Rate FiO2 11/10/16 19:25 36.3 11/10/16 16:01 36.3 82 20 98/60 (73) 100 11/10/16 16:00 Room Air 11/10/16 09:00 36.6 11/10/16 08:00 99 Room Air 11/10/16 07:24 36.0 72 18 93/58 (70) 99 11/10/16 00:35 36.8 95 20 95 Room Air 11/10/16 00:00 Room Air 11/09/16 23:19 39.4 139 20 100/64 (76) 90 Room Air 11/09/16 22:30 39.5 Physical Exam General Appearance: no apparent distress, + pertinent finding (looks good today ) ENT: pharynx normal (no mucositis ) Neck: no JVD Respiratory/Chest: lungs clear, no respiratory distress, no accessory muscle use, + decreased breath sounds (right base) Cardiovascular: regular rate, rhythm, no gallop, no murmur Abdomen: normal bowel sounds, non tender, soft Extremities: + pedal edema (1-2+ b/l ) Neurologic/Psychiatric: alert, oriented x 3 Skin: no rash Lymphatic: no adenopathy Laboratory Results Last 24 Hours Test 11/10/16 05:21 White Blood Count 0.89 K/uL Red Blood Count 2.62 M/uL Hemoglobin 7.7 g/dL Hematocrit 23.6 % Mean Corpuscular Volume 90.1 fL Mean Corpuscular Hemoglobin 29.4 pg Mean Corpuscular Hemoglobin Concent 32.6 g/dl Platelet Count 75 K/uL Mean Platelet Volume 10.3 fL Neutrophils (%) (Auto) 72.0 % Lymphocytes (%) (Auto) 24.7 % Monocytes (%) (Auto) 2.2 % Eosinophils (%) (Auto) 0.0 % Basophils (%) (Auto) 0.0 % Neutrophils # (Auto) 0.64 K/uL Lymphocytes # (Auto) 0.22 K/uL Monocytes # (Auto) 0.02 K/uL Eosinophils # (Auto) 0.00 K/uL Basophils # (Auto) 0.00 K/uL RDW Standard Deviation 63.3 fL RDW Coefficient of Variation 19.3 % Immature Granulocyte % (Auto) 1.1 % Immature Granulocyte # (Auto) 0.01 K/uL Toxic Granulation OCCASIONAL Dohle Bodies OCCASIONAL Large Platelets 1+ Polychromasia 1+ Anisocytosis PRESENT Tear Drop Cells 1+ Ovalocytes 1+ Sodium Level 140 mmol/L Potassium Level 4.2 mmol/L Chloride Level 104 mmol/L Carbon Dioxide Level 29 mmol/L Anion Gap 7.0 mmol/L Blood Urea Nitrogen 12 mg/dl Creatinine 0.77 mg/dl Est Creatinine Clear Calc Drug Dose 136.1 ml/min Estimated GFR () 148.2 Estimated GFR (Non- 127.9 BUN/Creatinine Ratio 15.9 Random Glucose 141 mg/dl Calcium Level 7.2 mg/dl Total Bilirubin 1.3 mg/dl Aspartate Amino Transf (AST/SGOT) 86 U/L Alanine Aminotransferase (ALT/SGPT) 71 U/L Alkaline Phosphatase 143 U/L Total Protein 5.3 gm/dl Albumin 2.2 gm/dl Globulin 3.1 gm/dl Albumin/Globulin Ratio 0.7 HIV (1&2) Ab and P24 Ag, 4th Gener NEG Assessment and Plan 21yo male with: 1. pancytopenia with neutropenia - ongoing, with slight worsening of neutropenia today. EXTENSIVE w/u to date negative including numerous viral studies, tickborne studies, imaging (CT chest/abd/pelvis), axillary lymph node bx, bone marrow bx, etc. Despite worsening neutropenia he actually looks much better today. Appreciate ID, heme/onc, and rheum consultations. Bone marrow bx negative for malignancy. No obvious granulomas seen on bone marrow bx. Seen by Dr. 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 Steroids started 1mg/kg, day #2 today. Cont to monitor. 2. fever - ongoing but seemingly better. 3. hypoalbuminemia - ongoing but diet improving. 4. low-normal b12 level - replace. 5. elevated SUNNY level - significance unclear. Pancytopenia has been associated w/ sarcoid. However, at this point, it is looking unlikely this is sarcoid. 6. abnormal LFTs - likely reactive to the underlying process. No change today. 7. DVT proph - SCDs due to low platelets. 8. edema - likely due to low albumin, dependency, steroids, etc. To be complete will check dopplers r/o DVT. 9. elevated ferritin - possibly due to Stills disease. mother/father both updated Continued [facility] stay due to: abnormal vital signs, multiple IV medications needed, other (fever) Discharge planning: uncertain
[2016-11-10 22:45] LABS: URINE APPEARANCE CLOUDY (CLEAR); URINE BILIRUBIN NEG (NEG); URINE COLOR YELLOW; URINE NITRITE NEG (NEG); UROBILINOGEN NEG (NEG)
[2016-11-10 22:54] LABS: MANUAL MICROSCOPIC REQUIRED? NO; REVIEW REQ? NO
[2016-11-11 06:03] LABS: HEMATOCRIT 22.8 % (42-52); MEAN CELL VOLUME 91.2 fL (80-100); MEAN CORPUSCULAR HEMOGLOBIN 30.4 pg (25-34); MEAN CORPUSCULAR HGB CONC 33.3 g/dl (32-36); WHITE BLOOD COUNT 2.29 K/uL (4.8-10.8)
[2016-11-11 06:11] LABS: MEAN PLATELET VOLUME 10.3 fL (7.4-10.4); PLATELET COUNT 89 K/uL (130-400)
[2016-11-11 06:18] LABS: INR 1.3 (0.9-1.1); PROTHROMBIN TIME (PATIENT) 13.8 SECONDS (9.0-12.0)
[2016-11-11 06:31] LABS: ANISOCYTOSIS PRESENT; COMPLETE YES; IG% 0.4 %; LYMPH ABS # 0.23 K/uL (1.2-3.4); MONO % 7.4 %; NEUT % 82.2 %; POLYCHROMASIA 1+
[2016-11-11 06:35] LABS: ALT/SGPT 58 U/L (12-78); AST/SGOT 52 U/L (15-37); BLOOD UREA NITROGEN 11 mg/dl (7-18); BUN/CREATININE RATIO 17.6 (10-20); CALCIUM 7.7 mg/dl (8.5-10.1); CARBON DIOXIDE 27 mmol/L (21-32); CHLORIDE 107 mmol/L (98-107); CREATININE 0.61 mg/dl (0.60-1.40); GLUCOSE 107 mg/dl (70-99); POTASSIUM 4.3 mmol/L (3.5-5.1); SODIUM 143 mmol/L (136-145)
[2016-11-11 06:38] LABS: ALB/GLOB RATIO 0.7 (0.9-2); ALKALINE PHOSPHATASE 123 U/L (45-117)
[2016-11-11 07:13] VITALS: BP 98/59; PULSE 86; TEMP 36.5; O2SAT 100
[2016-11-11] MEDS: PANTOprazole SOD 40 MG TAB PO SCH (07:58)
[2016-11-11] MEDS: METHYLPREDNISOLONE IV 60 MG in SYRINGE 0 ML IV SCH (07:58)
[2016-11-11] MEDS: DOXYCYCLINE HYCLATE 100 MG CAP PO SCH ×2 (07:58→20:04)
[2016-11-11] MEDS: CYANOCOBALAMIN 500 MCG TAB (VIT B-12) PO SCH (07:58)
--- NOTE | 2016-11-11 08:47 | DIAGNOSTIC IMAGING REPORT ---
ULTRASOUND VENOUS DOPPLER LWR EXT BILA CLINICAL HISTORY: Bilateral leg edema COMPARISON STUDY: No previous studies for comparison. FINDINGS: Real-time and color flow Doppler imaging were performed. Flow was seen within the femoral, popliteal and calf veins with no intraluminal thrombus demonstrated. The saphenous vein is patent. IMPRESSION: No evidence of lower extremity DVT. Electronically signed by: Srikanth Hester M.D. 11/11/2016 8:45 AM Dictated Date/Time: 11/11/2016 8:45 AM
[2016-11-11] MEDS ORDERED: POTASSIUM CHLORIDE 10 MEQ TABCR PO STA (11:27)
--- NOTE | 2016-11-11 11:36 | Hematology/Oncology Prog Note ---
Hematology/Onc Progress Note Date of Service Nov 11, 2016. Diagnoses Fevers Pancytopenia Medications Medications Administered Medications (Trade) Dose Ordered Sig/Ahsan Route Start Time Stop Time Status Last Admin Dose Admin Sodium Chloride 1,000 ml @ 999 mls/hr Q1H1M STAT IV 11/01/16 19:19 11/01/16 20:19 DC 11/01/16 19:19 999 MLS/HR Acetaminophen (Tylenol Tab) 1,000 mg NOW STAT PO 11/01/16 19:19 11/01/16 19:21 DC 11/01/16 19:31 1,000 MG Piperacillin Sod/ Tazobactam Sod (Zosyn Iv) 4.5 gm NOW STAT IV 11/01/16 21:23 11/01/16 21:24 DC 11/01/16 22:06 4.5 GM Acetaminophen (Tylenol Tab) 650 mg Q4H PRN PO 11/01/16 22:00 12/01/16 21:59 11/07/16 17:34 650 MG Piperacillin Sod/ Tazobactam Sod 4.5 gm/Dextrose 120 ml @ 30 mls/hr Q8H IV 11/02/16 02:00 11/02/16 09:10 DC 11/02/16 01:46 30 MLS/HR Levofloxacin 750 mg/Prmx 150 ml @ 100 mls/hr Q24H IV 11/01/16 23:00 11/05/16 13:32 DC 11/04/16 22:48 100 MLS/HR Vancomycin HCl 1600 mg/Sodium Chloride 532 ml @ 200 mls/hr TODAY@0930 ONCE IV 11/02/16 09:30 11/02/16 12:09 DC 11/02/16 09:40 200 MLS/HR Piperacillin Sod/ Tazobactam Sod 3.375 gm/Dextrose 115 ml @ 28.75 mls/ hr Q8@0200,1000,1800 IV 11/02/16 10:00 11/05/16 13:32 DC 11/05/16 09:56 28.75 MLS/HR Vancomycin HCl 1000 mg/Sodium Chloride 270 ml @ 125 mls/hr Q8@0200,1000,1800 IV 11/02/16 18:00 11/05/16 13:32 DC 11/05/16 09:56 125 MLS/HR Doxycycline Hyclate (Vibramycin Cap) 100 mg BID PO 11/02/16 13:00 11/12/16 12:59 11/11/16 07:58 100 MG Acyclovir Sodium 500 mg/Dextrose 110 ml @ 110 mls/hr Q8H IV 11/03/16 11:00 11/03/16 16:08 DC 11/03/16 11:33 110 MLS/HR Filgrastim (Neupogen Sq) 480 mcg TODAY@0800,1200 SC 11/03/16 12:00 11/04/16 09:00 DC 11/04/16 07:48 480 MCG Acyclovir Sodium 700 mg/Dextrose 114 ml @ 110 mls/hr Q8H IV 11/03/16 19:00 11/05/16 13:32 DC 11/05/16 12:15 110 MLS/HR Cyanocobalamin (Vitamin B-12 Tab) 1,000 mcg QAM PO 11/06/16 08:00 12/06/16 07:59 11/11/16 07:58 1,000 MCG Cyanocobalamin (Vitamin B-12 Tab) 1,000 mcg 1210 ONCE PO 11/05/16 12:10 11/05/16 13:02 DC 11/05/16 14:04 1,000 MCG Filgrastim (Neupogen Sq) 300 mcg DAILY@1400 SQ 11/05/16 14:00 12/05/16 13:59 Future Hold 11/05/16 14:06 300 MCG Acetaminophen 650 mg/Empty Bag 65 ml @ 260 mls/hr Q6H PRN IV 11/05/16 19:15 12/05/16 19:14 11/09/16 22:01 260 MLS/HR Ibuprofen (Advil Tab) 400 mg NOW STAT PO 11/06/16 23:13 11/06/16 23:20 DC 11/06/16 23:43 400 MG Potassium Chloride/Sodium Chloride 1,000 ml @ 150 mls/hr Q6H40M ONCE IV 11/07/16 12:00 11/07/16 18:39 DC 11/07/16 12:25 150 MLS/HR Sodium Chloride 1,000 ml @ 250 mls/hr Q4H ONCE IV 11/08/16 08:00 11/08/16 11:59 DC 11/08/16 08:57 250 MLS/HR Methylprednisolone Sodium Succinate 60 mg/Syringe 0.96 ml @ 1.5 mls/min DAILY IV 11/10/16 08:00 12/10/16 07:59 11/11/16 07:58 1.5 MLS/MIN Methylprednisolone Sodium Succinate 60 mg/Syringe 0.96 ml @ 1.5 mls/min 2030 ONCE IV 11/09/16 20:30 11/09/16 20:31 DC 11/09/16 21:48 1.5 MLS/MIN Pantoprazole Sodium (Protonix Tab) 40 mg QAM PO 11/10/16 08:00 12/10/16 07:59 11/11/16 07:58 40 MG Pantoprazole Sodium (Protonix Tab) 40 mg 2001 ONCE PO 11/09/16 20:01 11/09/16 20:04 DC 11/09/16 21:48 40 MG Subjective Mr. Mack has finally been afebrile for 24 hours. His counts are also up a bit today. His energy is improved. He was up and out of bed a bit yesterday and had some pedal edema. A LE doppler was negative. Review of Systems: Constitutional: + fatigue (improved), No fever, No chills Respiratory: No cough, No shortness of breath Cardiovascular: + edema, No chest pain Abdomen: No pain, No nausea, No diarrhea Musculoskeletal: No joint pain, No muscle pain, No calf pain Heme: No abnormal bleeding/bruising, No swollen lymph nodes Skin: No rash Vital Signs Vital Signs Past 12 Hours Date Time Temp Pulse Resp B/P (MAP) Pulse Ox O2 Delivery O2 Flow Rate FiO2 11/11/16 08:15 Room Air 11/11/16 07:13 36.5 86 16 98/59 (72) 100 Room Air 11/11/16 00:00 Room Air 11/10/16 23:36 36.3 82 20 101/67 (78) 99 Room Air Physical Exam Constitutional: General Apperance: heathly-appearing Level of Distress: NAD Psychiatric: Mental Status: active & alert Orientation: oriented except where noted ENMT: pertinent finding (no mucositis, sclerae anicteric) Neck: trachea midline Lungs: Respiratory Effort: no dyspnea Auscuitation: breath sounds normal Cardiovascular: Heart Auscultation: RRR Abdomen: Inspection & Palpation: soft, no tenderness, guarding & rebound, pertinent finding (no organomegaly) Extremities: edema (1+ pitting edema bilaterally to ankles) Laboratory Last 24 Hours Test 11/10/16 22:20 11/11/16 05:00 11/11/16 05:12 Urine Color YELLOW Urine Appearance CLOUDY Urine pH 7.0 Urine Specific [place] 1.020 Urine Protein NEG Urine Glucose (UA) 2+ Urine Ketones NEG Urine Occult Blood NEG Urine Nitrite NEG Urine Bilirubin NEG Urine Urobilinogen NEG Urine Leukocyte Esterase NEG Urine WBC (Auto) 1-5 /hpf Urine RBC (Auto) 0-4 /hpf Urine Hyaline Casts (Auto) 0 /lpf Urine Epithelial Cells (Auto) 5-10 /lpf Urine Bacteria (Auto) NEG White Blood Count 2.29 K/uL Red Blood Count 2.50 M/uL Hemoglobin 7.6 g/dL Hematocrit 22.8 % Mean Corpuscular Volume 91.2 fL Mean Corpuscular Hemoglobin 30.4 pg Mean Corpuscular Hemoglobin Concent 33.3 g/dl Platelet Count 89 K/uL Mean Platelet Volume 10.3 fL Neutrophils (%) (Auto) 82.2 % Lymphocytes (%) (Auto) 10.0 % Monocytes (%) (Auto) 7.4 % Eosinophils (%) (Auto) 0.0 % Basophils (%) (Auto) 0.0 % Neutrophils # (Auto) 1.88 K/uL Lymphocytes # (Auto) 0.23 K/uL Monocytes # (Auto) 0.17 K/uL Eosinophils # (Auto) 0.00 K/uL Basophils # (Auto) 0.00 K/uL RDW Standard Deviation 64.6 fL RDW Coefficient of Variation 19.4 % Immature Granulocyte % (Auto) 0.4 % Immature Granulocyte # (Auto) 0.01 K/uL Polychromasia 1+ Anisocytosis PRESENT Sodium Level 143 mmol/L Potassium Level 4.3 mmol/L Chloride Level 107 mmol/L Carbon Dioxide Level 27 mmol/L Anion Gap 9.0 mmol/L Blood Urea Nitrogen 11 mg/dl Creatinine 0.61 mg/dl Est Creatinine Clear Calc Drug Dose 171.8 ml/min Estimated GFR () > 150.0 Estimated GFR (Non- 140.8 BUN/Creatinine Ratio 17.6 Random Glucose 107 mg/dl Calcium Level 7.7 mg/dl Total Bilirubin 1.3 mg/dl Aspartate Amino Transf (AST/SGOT) 52 U/L Alanine Aminotransferase (ALT/SGPT) 58 U/L Alkaline Phosphatase 123 U/L Total Protein 5.3 gm/dl Albumin 2.2 gm/dl Globulin 3.1 gm/dl Albumin/Globulin Ratio 0.7 Prothrombin Time 13.8 SECONDS Prothromb Time International Ratio 1.3 Assessment & Plan Mr. Mack continues to be febrile for an unexplained reason. His titers for CMV and HIV are negative. He is positive for EBV IgG and EBNA but negative for IgM, which is generally consistent with a previous infection. He is also negative by serology for parvovirus, toxoplasma, and viral hepatitis. His serologies for zoonotic infections (anaplasma, erlichia, and bartonella) are still pending, but his continued fevers despite doxycycline argue against this diagnosis. His lymph node core biopsy was non-diagnostic and the FNA revealed increased benign-appearing lymphocytes with a T-cell predominance by flow, but not in a malignant pattern (normal CD4:CD8 ratio, arguing against clonality). He underwent bone marrow biopsy yesterday. The official interpretation is still pending, but preliminarily the marrow is hyper-cellular (80-90% cellularity) with increased megakaryocytes but no other clearly abnormal features. His bone marrow biopsy confirms the absence of a marrow failure state. Thus, his cytopenias are secondary to peripheral destruction, likely in his spleen. He has no symptoms suggestive of a malignancy. Rheumatology saw him and raised the possibility of hyperinflammatory states like Still's disease or macrophage activation syndrome and recommended starting steroids. He began treatment yesterday and is afebrile for the first time in more than a week. In addition, his counts jumped and his ANC is over 1000. The two possibilities are that he does have an inflammatory condition that is responding to steroids OR whatever undocumented viral infection that brought him here has resolved. I would favor the former interpretation. Of note, the flow cytometry on his bone marrow revealed a slightly increased number of myeloblasts (1.7%). While I suspect this is related to the overall increased activity in his marrow, we should monitor his counts for a few more days to make sure they continue to improve and that he doesn't suddenly develop peripheral blasts. I think this outcome is highly unlikely, however.
[2016-11-11] MEDS ORDERED: MAGNESIUM OXIDE 400 MG TAB PO ONE (12:00)
[2016-11-11] MEDS ORDERED: FUROSEMIDE 20 MG TAB PO ONE (12:30)
--- NOTE | 2016-11-11 15:09 | Rheumatology Progress Note ---
Subjective Date of Service Nov 11, 2016. Subjective Pt evaluation today including: conversation w/ patient, conversation w/ family , chart review, lab review, review of inpatient medication list I met the patient and his mother walking the halls for exercise. He reports that he feels quite well and has not had a fever since Saturday. He did notice a return of swelling in his feet which has improved with elevation and use of Lasix. He has not experienced any adverse effects to Solu Medrol. Review of Systems Constitutional: No fever, No chills, No fatigue Respiratory: No cough, No shortness of breath, No dyspnea on exertion Cardiac: + edema (leg swelling), No chest pain Abdomen: No pain, No nausea, No vomiting, No diarrhea Musculoskeletal: No joint pain, No muscle pain Endo: No fatigue Skin: No rash Objective Vital Signs Date Time Temp Pulse Resp B/P (MAP) Pulse Ox O2 Delivery O2 Flow Rate FiO2 11/11/16 08:15 Room Air 11/11/16 07:13 36.5 86 16 98/59 (72) 100 Room Air 11/11/16 00:00 Room Air 11/10/16 23:36 36.3 82 20 101/67 (78) 99 Room Air 11/10/16 19:25 36.3 11/10/16 16:01 36.3 82 20 98/60 (73) 100 11/10/16 16:00 Room Air Physical Exam General Appearance: WD/WN, no apparent distress Eyes: normal inspection, EOMI Respiratory/Chest: chest non-tender, lungs clear, normal breath sounds, no respiratory distress, no accessory muscle use Cardiovascular: regular rate, rhythm Abdomen: normal bowel sounds Extremities: normal range of motion, non-tender, normal inspection, + pedal edema Neurologic/Psychiatric: no motor/sensory deficits Skin: warm/dry, no rash Laboratory Results Last 24 Hours Test 11/10/16 22:20 11/11/16 05:00 11/11/16 05:12 Urine Color YELLOW Urine Appearance CLOUDY Urine pH 7.0 Urine Specific [place] 1.020 Urine Protein NEG Urine Glucose (UA) 2+ Urine Ketones NEG Urine Occult Blood NEG Urine Nitrite NEG Urine Bilirubin NEG Urine Urobilinogen NEG Urine Leukocyte Esterase NEG Urine WBC (Auto) 1-5 /hpf Urine RBC (Auto) 0-4 /hpf Urine Hyaline Casts (Auto) 0 /lpf Urine Epithelial Cells (Auto) 5-10 /lpf Urine Bacteria (Auto) NEG White Blood Count 2.29 K/uL Red Blood Count 2.50 M/uL Hemoglobin 7.6 g/dL Hematocrit 22.8 % Mean Corpuscular Volume 91.2 fL Mean Corpuscular Hemoglobin 30.4 pg Mean Corpuscular Hemoglobin Concent 33.3 g/dl Platelet Count 89 K/uL Mean Platelet Volume 10.3 fL Neutrophils (%) (Auto) 82.2 % Lymphocytes (%) (Auto) 10.0 % Monocytes (%) (Auto) 7.4 % Eosinophils (%) (Auto) 0.0 % Basophils (%) (Auto) 0.0 % Neutrophils # (Auto) 1.88 K/uL Lymphocytes # (Auto) 0.23 K/uL Monocytes # (Auto) 0.17 K/uL Eosinophils # (Auto) 0.00 K/uL Basophils # (Auto) 0.00 K/uL RDW Standard Deviation 64.6 fL RDW Coefficient of Variation 19.4 % Immature Granulocyte % (Auto) 0.4 % Immature Granulocyte # (Auto) 0.01 K/uL Polychromasia 1+ Anisocytosis PRESENT Sodium Level 143 mmol/L Potassium Level 4.3 mmol/L Chloride Level 107 mmol/L Carbon Dioxide Level 27 mmol/L Anion Gap 9.0 mmol/L Blood Urea Nitrogen 11 mg/dl Creatinine 0.61 mg/dl Est Creatinine Clear Calc Drug Dose 171.8 ml/min Estimated GFR () > 150.0 Estimated GFR (Non- 140.8 BUN/Creatinine Ratio 17.6 Random Glucose 107 mg/dl Calcium Level 7.7 mg/dl Total Bilirubin 1.3 mg/dl Aspartate Amino Transf (AST/SGOT) 52 U/L Alanine Aminotransferase (ALT/SGPT) 58 U/L Alkaline Phosphatase 123 U/L Total Protein 5.3 gm/dl Albumin 2.2 gm/dl Globulin 3.1 gm/dl Albumin/Globulin Ratio 0.7 Prothrombin Time 13.8 SECONDS Prothromb Time International Ratio 1.3 Assessment and Plan 22 year old man admitted for persistent fevers and pancytopenia. Workup for infection and malignancy have yielded no obvious cause. He was started on corticosteroids and has been afebrile for >24 hours. His complete blood count is improving and his liver enzymes are trending down. Overall presentation suggestive of an autoimmune process such as Still disease. His mother informed me today that they plan to take him home to [place] once discharged and do not plan to have him return to school here. I advised them that he will need to follow with a community aide as soon as possible for ongoing management. He will likely need a steroid sparing agent and close monitoring. Recommendations 1. Transition to oral prednisone tomorrow 11/12/16 and give 60 mg. 2. Can discharge on prednisone 60 mg (daily with breakfast) and advise patient to taper by 10 mg every week until he is at 20 mg daily. After 20 mg daily x 1 week, then 15 mg daily x 2 weeks, 10 mg daily x 2 weeks then taper by 2.5 mg every 2 weeks. Provide side effect profile of prednisone such as weight gain, insomnia, increase risk of infection, diabetes, and hypertension 3. Provide Bactrim DS 1 tablet on // for PCP prophylaxis while prednisone is above 20 mg daily. 4. Advise patient that he will need lab monitoring at least once every 1-2 weeks. 5. Defer to outside community aide about which DMARD to use. 6. Consider repeat CT scan of the abdomen and pelvis as an outpatient for reevaluation of the abnormalities noted If he remains in the area, I am more than happy to see the patient within 1-2 weeks after discharge. Case discussed with Dr. Cedeno. Thank you for allowing rheumatology to participate in the care of this patient. Continued [facility] stay due to: abnormal vital signs, multiple IV medications needed, other (fever) Discharge planning: uncertain
[2016-11-11 15:54] VITALS: BP 103/64; PULSE 80; TEMP 36.6; O2SAT 98
[2016-11-11 23:31] VITALS: BP 110/72; PULSE 88; TEMP 36.6; O2SAT 98
--- NOTE | 2016-11-12 00:02 | Progress Note ---
Subjective Date of Service: Nov 11, 2016. Subjective Pt evaluation today including: conversation w/ patient, conversation w/ family (mother, father), physical exam, chart review, lab review, conversation w/ retail consultant (rheumatology, heme/onc), review of inpatient medication list Pain: denies PO Intake: excellent Voiding: no voiding problems feels "great" no fever overnight no new complaints excited that he is finally on the mend! Problem List Medical Problems: (1) Elevated liver enzymes Status: Acute (2) Swelling of lower extremity Status: Acute Review of Systems Constitutional: No fever, No chills Respiratory: No cough, No sputum, No wheezing, No shortness of breath, No dyspnea on exertion Cardiac: + edema, No chest pain, No orthopnea Abdomen: No pain, No vomiting, No diarrhea Objective Vital Signs Date Time Temp Pulse Resp B/P (MAP) Pulse Ox O2 Delivery O2 Flow Rate FiO2 11/11/16 23:31 36.6 88 20 110/72 (85) 98 Room Air 11/11/16 16:00 Room Air 11/11/16 15:54 36.6 80 16 103/64 (77) 98 Room Air 11/11/16 08:15 Room Air 11/11/16 07:13 36.5 86 16 98/59 (72) 100 Room Air 11/11/16 00:00 Room Air Physical Exam General Appearance: no apparent distress ENT: pharynx normal, + pertinent finding (no mucositis) Neck: no JVD Respiratory/Chest: lungs clear, no respiratory distress, no accessory muscle use Cardiovascular: regular rate, rhythm, no gallop, no murmur Abdomen: normal bowel sounds, non tender, soft, + splenomegaly Extremities: + pedal edema (1+ b/l ) Neurologic/Psychiatric: alert, oriented x 3 Skin: no rash Laboratory Results Last 24 Hours Test 11/11/16 05:00 11/11/16 05:12 White Blood Count 2.29 K/uL Red Blood Count 2.50 M/uL Hemoglobin 7.6 g/dL Hematocrit 22.8 % Mean Corpuscular Volume 91.2 fL Mean Corpuscular Hemoglobin 30.4 pg Mean Corpuscular Hemoglobin Concent 33.3 g/dl Platelet Count 89 K/uL Mean Platelet Volume 10.3 fL Neutrophils (%) (Auto) 82.2 % Lymphocytes (%) (Auto) 10.0 % Monocytes (%) (Auto) 7.4 % Eosinophils (%) (Auto) 0.0 % Basophils (%) (Auto) 0.0 % Neutrophils # (Auto) 1.88 K/uL Lymphocytes # (Auto) 0.23 K/uL Monocytes # (Auto) 0.17 K/uL Eosinophils # (Auto) 0.00 K/uL Basophils # (Auto) 0.00 K/uL RDW Standard Deviation 64.6 fL RDW Coefficient of Variation 19.4 % Immature Granulocyte % (Auto) 0.4 % Immature Granulocyte # (Auto) 0.01 K/uL Polychromasia 1+ Anisocytosis PRESENT Sodium Level 143 mmol/L Potassium Level 4.3 mmol/L Chloride Level 107 mmol/L Carbon Dioxide Level 27 mmol/L Anion Gap 9.0 mmol/L Blood Urea Nitrogen 11 mg/dl Creatinine 0.61 mg/dl Est Creatinine Clear Calc Drug Dose 171.8 ml/min Estimated GFR () > 150.0 Estimated GFR (Non- 140.8 BUN/Creatinine Ratio 17.6 Random Glucose 107 mg/dl Calcium Level 7.7 mg/dl Total Bilirubin 1.3 mg/dl Aspartate Amino Transf (AST/SGOT) 52 U/L Alanine Aminotransferase (ALT/SGPT) 58 U/L Alkaline Phosphatase 123 U/L Total Protein 5.3 gm/dl Albumin 2.2 gm/dl Globulin 3.1 gm/dl Albumin/Globulin Ratio 0.7 Prothrombin Time 13.8 SECONDS Prothromb Time International Ratio 1.3 Assessment and Plan 21yo male with: 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 He was seen by Dr. Drew this past Saturday and placed on solumedrol IV daily. Within 24 hours he had significant clinical improvement and resolution of fever. At this time Dr. Drew is recommending transitioning from IV steroids to po prednisone 60mg and tapering slowly. Spoke with Dr. Mcdaniel today - bone marrow bx largely normal; flow cytometry showed some immature white cells but otherwise was normal. Will continue steroids, GI prophy with PPI, etc. Repeat cbc in AM. 2. fever - resolved; see above. 3. hypoalbuminemia - combination of poor oral intake earlier this stay (mild protein calorie malnutrition) as well as abnormal LFTs. Follow every few days with other LFTs. 4. low-normal b12 level - replacing 1000mcg b12 daily. 5. elevated SUNNY level - significance has been unclear but unlikely to have sarcoid given lack of granulomas on his lymph node bx and bone marrow bx. Pancytopenia has been associated w/ sarcoid but again his pancytopenia is felt to be due to Stills Disease. 1,25-OH vit D was sent (high levels associated with sarcoid). 6. abnormal LFTs - likely reactive to the underlying process (Stills). LFTs slowly improving. 7. DVT proph - SCDs due to low platelets. 8. edema - likely due to low albumin, dependency, steroids, etc. No DVT on dopplers. Lasix with K/Mag today. 9. elevated ferritin - thought 2nd to Stills disease. 10. GI prophy - PPI. mother/father both updated progressing nicely this weekend! Continued [facility] stay due to: other (abnormal labs) Discharge planning: home
[2016-11-12 06:00] LABS: HEMATOCRIT 23.8 % (42-52); IG% 1.3 %; LYMPH ABS # 0.31 K/uL (1.2-3.4); MEAN CELL VOLUME 90.5 fL (80-100); MEAN CORPUSCULAR HEMOGLOBIN 28.1 pg (25-34); MEAN CORPUSCULAR HGB CONC 31.1 g/dl (32-36); MEAN PLATELET VOLUME 9.8 fL (7.4-10.4); MONO % 7.1 %; NEUT % 78.6 %; PLATELET COUNT 114 K/uL (130-400); RED BLOOD COUNT 2.63 M/uL (4.7-6.1); WHITE BLOOD COUNT 2.38 K/uL (4.8-10.8)
[2016-11-12 06:30] LABS: ANISOCYTOSIS PRESENT; COMPLETE YES; OVALOCYTES 1+; POLYCHROMASIA 1+; TEAR DROP CELLS 1+
[2016-11-12 06:34] LABS: BUN/CREATININE RATIO 17.8 (10-20); CALCIUM 7.7 mg/dl (8.5-10.1); CREATININE 0.78 mg/dl (0.60-1.40); MAGNESIUM 2.7 mg/dl (1.8-2.4); POTASSIUM 4.4 mmol/L (3.5-5.1)
[2016-11-12 07:25] VITALS: BP 117/63; PULSE 103; TEMP 37.3; O2SAT 97
[2016-11-12] MEDS: CYANOCOBALAMIN 500 MCG TAB (VIT B-12) PO SCH (09:18)
[2016-11-12] MEDS: PANTOprazole SOD 40 MG TAB PO SCH (09:18)
--- NOTE | 2016-11-12 09:20 | HEME/ONC PROGRESS NOTE ---
DATE: 11/12/2016 DIAGNOSES: 1. Pancytopenia. 2. Hyperferritinemia. 3. Elevated liver transaminases. 4. Bilateral lower extremity edema. 5. Lymphadenopathy. HOSPITAL COURSE: Carson is a pleasant 21-year-old gentleman, who is now on the hospital day 11 with subacute onset bilateral lower extremity weakness and pancytopenia. He has been pancultured for both bacteria and virus. Most of viral titers are back and turned out to be negative. The running diagnosis is presently possible autoimmune disease. He was recently started on steroids, seems to be tolerating it well. His appetite is vigorous and fevers have subsided. Bone marrow biopsy and aspiration was performed, which did reveal a mild blast count which is currently being observed. The patient offers no complaints otherwise. PHYSICAL EXAMINATION: GENERAL: Carson is in no acute distress. VITAL SIGNS: Temperature 37.3, pulse 103, respiratory rate 18, blood pressure 117/63. SKIN: Without rash or lesion. HEENT: Oral mucosa without erythema or ulceration. NECK: Supple. HEART: Regular rate and rhythm. No clicks, rubs, murmurs or gallops. LUNGS: Clear to auscultation bilaterally. ABDOMEN: Soft, nontender, nondistended. EXTREMITIES: No clubbing, cyanosis or edema. NEUROLOGIC: Grossly intact. LABORATORY DATA: WBC count 2380, hemoglobin 7.4, platelet count 114,000, absolute neutrophil count is 1870. Sodium 141, potassium 4.4, chloride 105, carbon dioxide 30, creatinine 0.78, BUN 14, magnesium elevated at 2.7. Transaminases and bilirubin are retreating towards normal. IMPRESSION: 1. 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 2. Pancytopenia. 3. Elevated liver transaminases. 4. Lower extremity edema. 5. Neutropenic fever. PLAN: Carson is again on his 11th hospital day. He is making slow, but steady progress. He was started on corticosteroids over the weekend and his counts indeed are improving. Bone marrow biopsy results have not been finalized as of yet. I seriously doubt he suffers from an underlying hematologic malignancy and would bank on autoimmune disease versus subacute onset infection, (most likely viral). He continues to tolerate is his cytopenias reasonably well. I would hold off on transfusional support at this point. Hopefully, over the next day or two can make arrangements to get him out of hospital and continue appropriate therapy. We will continue to follow Carson during his hospital stay. Thank you again for assisting us on the care of this very pleasant and interesting young man.
--- NOTE | 2016-11-12 10:51 | Family Medicine Progress Note ---
Progress Note Date of Service Nov 12, 2016. Subjective Pt evaluation today including: conversation w/ patient, conversation w/ family , physical exam Voiding: no voiding problems Feels well today. Denied any pain. [place] his swelling in legs has improved apart from mild ankle edema. Discussed steroids thoroughly and risks of thrush, GERD, elevated BSG, change in mood, weight gain. He will be going to [place] and not returning to this area. Parents present as well. They will be driving him down to [place]. Constitutional: + weakness, + fatigue, No fever, No chills, No sweats, No weight loss Eyes: No worsening of vision Respiratory: No cough, No wheezing, No shortness of breath, No dyspnea on exertion Cardiovascular: No chest pain Abdomen: No pain, No nausea, No vomiting, No diarrhea, No constipation Musculoskeletal: No joint pain Male : No dysuria Neurologic: No memory loss Psychiatric: No depression symptoms, No anhedonism Heme: No abnormal bleeding/bruising Endo: No fatigue Skin: No rash Medications Current Inpatient Medications Medications (Trade) Dose Ordered Sig/Ahsan Route Start Time Stop Time Status Last Admin Dose Admin Acetaminophen (Tylenol Tab) 650 mg Q4H PRN PO 11/01/16 22:00 12/01/16 21:59 11/07/16 17:34 650 MG Al Hydrox/Mg Hydrox/Simethicone (Maalox Max Susp) 15 ml Q4H PRN PO 11/01/16 22:00 12/01/16 21:59 Magnesium Hydroxide (Milk Of Magnesia Susp) 30 ml Q6H PRN PO 11/01/16 22:00 12/01/16 21:59 Ondansetron HCl (Zofran Inj) 4 mg Q6H PRN IV 11/01/16 22:00 12/01/16 21:59 Cyanocobalamin (Vitamin B-12 Tab) 1,000 mcg QAM PO 11/06/16 08:00 12/06/16 07:59 11/12/16 09:18 1,000 MCG Filgrastim (Neupogen Sq) 300 mcg DAILY@1400 SQ 11/05/16 14:00 12/05/16 13:59 Future Hold 11/05/16 14:06 300 MCG Pantoprazole Sodium (Protonix Tab) 40 mg QAM PO 11/10/16 08:00 12/10/16 07:59 11/12/16 09:18 40 MG Prednisone (PredniSONE TAB) 60 mg QAM PO 11/12/16 08:00 12/12/16 07:59 11/12/16 09:18 60 MG Objective Vital Signs Date Time Temp Pulse Resp B/P (MAP) Pulse Ox O2 Delivery O2 Flow Rate FiO2 11/12/16 09:00 Room Air 11/12/16 07:25 37.3 103 18 117/63 (81) 97 Room Air 11/12/16 00:00 Room Air 11/11/16 23:31 36.6 88 20 110/72 (85) 98 Room Air 11/11/16 16:00 Room Air 11/11/16 15:54 36.6 80 16 103/64 (77) 98 Room Air Physical Exam General Appearance: WD/WN, no apparent distress, + thin Eyes: normal inspection, PERRL ENT: hearing grossly normal Neck: supple, no JVD Respiratory/Chest: lungs clear, no respiratory distress Cardiovascular: regular rate, rhythm, no murmur Abdomen: normal bowel sounds, non tender, soft Extremities: non-tender, no pedal edema Neurologic/Psychiatric: alert, normal mood/affect, oriented x 3 Skin: no rash Laboratory Results Last 24 Hours Test 11/12/16 05:15 White Blood Count 2.38 K/uL Red Blood Count 2.63 M/uL Hemoglobin 7.4 g/dL Hematocrit 23.8 % Mean Corpuscular Volume 90.5 fL Mean Corpuscular Hemoglobin 28.1 pg Mean Corpuscular Hemoglobin Concent 31.1 g/dl Platelet Count 114 K/uL Mean Platelet Volume 9.8 fL Neutrophils (%) (Auto) 78.6 % Lymphocytes (%) (Auto) 13.0 % Monocytes (%) (Auto) 7.1 % Eosinophils (%) (Auto) 0.0 % Basophils (%) (Auto) 0.0 % Neutrophils # (Auto) 1.87 K/uL Lymphocytes # (Auto) 0.31 K/uL Monocytes # (Auto) 0.17 K/uL Eosinophils # (Auto) 0.00 K/uL Basophils # (Auto) 0.00 K/uL RDW Standard Deviation 64.4 fL RDW Coefficient of Variation 19.7 % Immature Granulocyte % (Auto) 1.3 % Immature Granulocyte # (Auto) 0.03 K/uL Polychromasia 1+ Anisocytosis PRESENT Tear Drop Cells 1+ Ovalocytes 1+ Sodium Level 141 mmol/L Potassium Level 4.4 mmol/L Chloride Level 105 mmol/L Carbon Dioxide Level 30 mmol/L Anion Gap 6.0 mmol/L Blood Urea Nitrogen 14 mg/dl Creatinine 0.78 mg/dl Est Creatinine Clear Calc Drug Dose 134.4 ml/min Estimated GFR () 147.5 Estimated GFR (Non- 127.2 BUN/Creatinine Ratio 17.8 Random Glucose 90 mg/dl Calcium Level 7.7 mg/dl Magnesium Level 2.7 mg/dl Assessment and Plan 21 yo M, day 11 of admission, who initially presented with bilateral lower leg edema and fever of unknown origin, who underwent extensive malignancy rule out - top differential is adult onset Still's disease, now improved with steroids. 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 - Will give pt a schedule to ensure compliance. Will include Bactrim DS //Sat for PCP Prophylaxis while >20mg. - Will need labwork as an outpatient, as well as a Aquarist in [place] as well. Steroid schedule: 11/12/16 to 11/18/16: 60mg daily , Bactrim DS Sat/Sat/11/19 to 11/25: 50mg daily, Bactrim DS Sat/Sat/11/26 to 12/02: 40mg daily, Bactrim DS Sat/Sat/12/03 to 12/09: 30mg daily, Bactrim DS Sat/Sat/12/10 to 12/16: 20mg daily 12/17 to 12/23: 15mg daily 12/24 to 12/30: 15mg daily 12/31 to 01/06: 10mg daily 01/07 to 01/13: 10mg daily 01/14 to 01/20: 7.5mg daily 01/21 to 01/27: 7.5mg daily 02/04 to 02/10: 5mg daily 02/11 to 02/17: 5mg daily 02/18 to 02/24: 2.5mg daily 02/25 to 03/03: 2.5mg daily 03/04: STOP Pancytopenia Improving, will repeat CBC tomorrow before discharge Hyperferritinemia To be repeated as outpatient in 2-3 weeks Likely part of disease process Bilateral lower extremity edema Continue to wear SCDs, elevate legs Will likely improve as disease process improves Elevated LFTs Will repeat tomorrow VTE: SCD's due to low platelets CODE STATUS: FULL DISPO: Med/Surg. Anticipate discharge tomorrow AM. Resident Physician Supervision Note: I interviewed and examined the patient. Discussed with Dr. Turk and agree with findings and plan as documented in the note. Any exceptions or clarifications are listed here: None Documented By: Lukas Puri feeling better leg swelling improving no new complaints otherwise improving ROS otherwise negative except for as above vitals noted nad breathing unlabored no pallor or icterus adult onset still's disease / fevers / pancytopenia -improving clinically - prednisone and rheumatology f/u as above -anticipate home in AM Resident Tracking Resident Involvement: Resident Care Provided Care Provided: Adult Hospital Medicine
[2016-11-12 14:44] LABS: NEO FLOW LYMPH/LEUK STND SEE NEO MISC
[2016-11-12 14:49] VITALS: BP 96/53; PULSE 108; TEMP 37.4; O2SAT 94
[2016-11-13 00:07] VITALS: BP 108/65; PULSE 92; TEMP 36.6; O2SAT 97
[2016-11-13 08:03] VITALS: BP 118/74; PULSE 105; TEMP 36.7; O2SAT 98
[2016-11-13] MEDS: CYANOCOBALAMIN 500 MCG TAB (VIT B-12) PO SCH (08:24)
[2016-11-13] MEDS: PANTOprazole SOD 40 MG TAB PO SCH (08:24)
--- NOTE | 2016-11-13 08:31 | Discharge Instructions ---
Discharge Instructions Date of Service Nov 13, 2016. 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 Instructions / Follow-Up Instructions / Follow-Up Make sure to establish with a Diesel Technician Mechanic within 1-2 weeks, and see your PRIMARY CARE DR within 1 week. You will need blood tests every 1-2 weeks. The steroid schedule, as given to you, is as below: Steroid schedule: 11/12/16 to 11/18/16: 60mg daily , Bactrim DS Sat/Sat/11/19 to 11/25: 50mg daily, Bactrim DS Sat/Sat/11/26 to 12/02: 40mg daily, Bactrim DS Sat/Sat/12/03 to 12/09: 30mg daily, Bactrim DS Sat/Sat/12/10 to 12/16: 20mg daily 12/17 to 12/23: 15mg daily 12/24 to 12/30: 15mg daily 12/31 to 01/06: 10mg daily 01/07 to 01/13: 10mg daily 01/14 to 01/20: 7.5mg daily 01/21 to 01/27: 7.5mg daily 01/28 to 02/03: 5mg daily 02/04 to 02/10: 5mg daily 02/11 to 02/17: 2.5mg daily 02/18 to 02/24: 2.5mg daily 02/25/2017: STOP Remember the side effects of steroids - Mood changes, insomnia, bone changes ( so get adequate sun exposure), thrush in the mouth (white discharge, talk to your Dr if this occurs), weight gain, hair changes, diabetes (you may need to check your blood sugar) and increased risk of infection. Wash your hands frequently! Current Hospital Diet Patient's current hospital diet: Regular Diet Discharge Diet Recommended Diet: Regular Diet Procedures Procedures Performed: Bone Marrow Biopsy Pending Studies Studies pending at discharge: no Laboratory Results Last 24 Hours Test 11/13/16 08:42 White Blood Count 2.02 K/uL Red Blood Count 2.83 M/uL Hemoglobin 8.0 g/dL Hematocrit 26.0 % Mean Corpuscular Volume 91.9 fL Mean Corpuscular Hemoglobin 28.3 pg Mean Corpuscular Hemoglobin Concent 30.8 g/dl Platelet Count 108 K/uL Mean Platelet Volume 9.1 fL Basophils # (Auto) 0.01 K/uL RDW Standard Deviation 65.3 fL RDW Coefficient of Variation 19.9 % Immature Granulocyte % (Auto) 0.5 % Immature Granulocyte # (Auto) 0.01 K/uL Polychromasia 1+ Anisocytosis PRESENT Sodium Level 141 mmol/L Chloride Level 104 mmol/L Carbon Dioxide Level 29 mmol/L Anion Gap 8.0 mmol/L Blood Urea Nitrogen 11 mg/dl Creatinine 0.82 mg/dl Est Creatinine Clear Calc Drug Dose 127.8 ml/min Estimated GFR () 144.5 Estimated GFR (Non- 124.6 BUN/Creatinine Ratio 13.7 Random Glucose 129 mg/dl Calcium Level 7.8 mg/dl Total Bilirubin 1.2 mg/dl Aspartate Amino Transf (AST/SGOT) 65 U/L Alanine Aminotransferase (ALT/SGPT) 66 U/L Alkaline Phosphatase 102 U/L Total Protein 5.4 gm/dl Albumin 2.3 gm/dl Globulin 3.1 gm/dl Albumin/Globulin Ratio 0.7 Medical Emergencies . Who to Call and When: Medical Emergencies: If at any time you feel your situation is an emergency, please call 911 immediately. . Non-Emergent Contact Non-Emergency issues call your: Primary Care Provider . . "Provider Documentation" section prepared by Elissa Turk. . VTE Core Measure Inpt VTE Proph given/why not?: SCD's
[2016-11-13] MEDS ORDERED: SULF800T23 PO (08:36)
[2016-11-13] MEDS ORDERED: PRED10TA PO (08:36)
[2016-11-13 08:49] LABS: BASO % 0.5 %; BASO ABS # 0.01 K/uL (0-0.2); IG% 0.5 %; LYMPH % 11.4 %; LYMPH ABS # 0.23 K/uL (1.2-3.4); MEAN CELL VOLUME 91.9 fL (80-100); MEAN CORPUSCULAR HEMOGLOBIN 28.3 pg (25-34); MEAN CORPUSCULAR HGB CONC 30.8 g/dl (32-36); MEAN PLATELET VOLUME 9.1 fL (7.4-10.4); MONO % 5.4 %; NEUT % 82.2 %; PLATELET COUNT 108 K/uL (130-400); RED BLOOD COUNT 2.83 M/uL (4.7-6.1); WHITE BLOOD COUNT 2.02 K/uL (4.8-10.8)
[2016-11-13 09:15] LABS: ANISOCYTOSIS PRESENT; COMPLETE YES; POLYCHROMASIA 1+
[2016-11-13 09:17] LABS: ALB/GLOB RATIO 0.7 (0.9-2); BUN/CREATININE RATIO 13.7 (10-20); CALCIUM 7.8 mg/dl (8.5-10.1); CREATININE 0.82 mg/dl (0.60-1.40)
--- NOTE | 2016-11-13 10:04 | Discharge Summary ---
Discharge Summary Date of Service Nov 13, 2016. (Elissa Turk MD) Discharge Summary Admission Date: Nov 01, 2016 at 22:00 Discharge Date: Nov 13, 2016 Discharge Disposition: Home Principal Diagnosis: Adult onset Still's Disease Procedures: Bone marrow biopsy - Final results still pending Consultations: Hem-Onc Rheumatology (Elissa Truk MD) Medication Reconciliation New Medications: Prednisone (Prednisone) 10 Mg Tab 10 MG PO DAILY for 30 Days, #100 TAB Follow steroid schedule, given to pt 11/12/16 to 11/18/16: 60mg daily 11/19 to 11/25: 50mg daily 11/26 to 12/02: 40mg daily 12/03 to 12/09: 30mg daily 12/10 to 12/16: 20mg daily 12/17 to 12/23: 15mg daily Sulfamethoxazole-Trimethoprim (Bactrim Ds 800MG/160MG) 1 Tab Tab 1 TAB PO UD for 11 Days, #11 TAB Take Sat/Sat/Sat while on prednisone greater than 20mg daily. Continued Medications: Kpfhizmmkzttsosd-Pesewfrqwn-Fi (Vicks Nyquil Cold & Flu) 1 Liq Liq 1 DOSE PO HS PRN for COLD SYMPTOMS Discharge Exam Review of Systems: Constitutional: No fever, No chills, No sweats, No weight loss, No weakness , No fatigue Eyes: No eye pain ENT: No hearing loss, No unusual epistaxis Respiratory: No cough, No sputum, No wheezing Cardiovascular: No chest pain, No orthopnea Abdomen: No pain, No nausea, No vomiting Musculoskeletal: No joint pain Genitourinary - Male: No hematuria, No dysuria, No urinary frequency, No urinary urgency Neurologic: No paralysis, No weakness Psychiatric: No depression symptoms, No anxiety Endocrine: No fatigue Hematologic / Lymphatic: No abnormal bleeding/bruising Integumentary: No rash Physical Exam: General Appearance: WD/WN, no apparent distress Eyes: normal inspection, PERRL ENT: hearing grossly normal Neck: supple, no adenopathy, no JVD Respiratory/Chest: lungs clear, normal breath sounds, no respiratory distress Cardiovascular: regular rate, rhythm, no murmur, normal peripheral pulses Abdomen / GI: normal bowel sounds, non tender, soft Extremities: no calf tenderness, no pedal edema Neurologic/Psychiatric: alert, normal mood/affect, normal reflexes, oriented x 3 Skin: no rash (Elissa Turk MD) Hospital Course HPI: This is a 21 yo m with a [place] background that it presenting to us with bilat LE edema. He states that on Saturday he started to notice this lower extremity edema. Initially it would improve however more recently it has sustained and it concerned him so he came to the ED for evaluation. While here he was found to be febrile, pancytopenic and with +4 bilat LE edema. He was unaware of the fever. He denies chest pain, SOB, presyncope, headache, tinnitus, myalgias, change in urine or bowel habits. he has no sick contacts, has not travelled recently, works in the [employer] and is a [employer] major. He is originally from [place]. No recent changes at home except he recently ended a relationship. He does not know of any blood disorders in the family and denies any medical problems. Very occasional alcohol use and denies using any supplements or drugs. Per Dr Mcdaniel: Mr. Mack continues was febrile, up to 107F, initially for an unexplained reason. His titers for CMV and HIV are negative. He is positive for EBV IgG and EBNA but negative for IgM, which is generally consistent with a previous infection. He is also negative by serology for parvovirus, toxoplasma, and viral hepatitis. His serologies for zoonotic infections (anaplasma, ehrlichia, and bartonella) are still pending, but his continued fevers despite doxycycline argue against this diagnosis. His lymph node core biopsy was non- diagnostic and the FNA revealed increased benign-appearing lymphocytes with a T- cell predominance by flow, but not in a malignant pattern (normal CD4:CD8 ratio , arguing against clonality). He underwent bone marrow biopsy yesterday. The official interpretation is still pending, but preliminarily the marrow is hyper- cellular (80-90% cellularity) with increased megakaryocytes but no other clearly abnormal features. His bone marrow biopsy confirms the absence of a marrow failure state. Thus, his cytopenias are secondary to peripheral destruction, likely in his spleen. He has no symptoms suggestive of a malignancy. Rheumatology saw him and raised the possibility of hyperinflammatory states like Still's disease or macrophage activation syndrome and recommended starting steroids. HOSPITAL COURSE: He was found to be pancytopenic, underwent extensive oncology workup, ruled out malignancy. Rheumatology was consulted and this was found to be Still's Disease. He had great improvement with steroids. 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 Will include Bactrim DS //Sat for PCP Prophylaxis while >20mg. - Will need labwork as an outpatient, as well as a [facility] [place] as well. Steroid schedule: 11/12/16 to 11/18/16: 60mg daily , Bactrim DS Sat/Sat/11/19 to 11/25: 50mg daily, Bactrim DS Sat/Sat/11/26 to 12/02: 40mg daily, Bactrim DS Sat/Sat/12/03 to 12/09: 30mg daily, Bactrim DS Sat/Sat/12/10 to 12/16: 20mg daily 12/17 to 12/23: 15mg daily 12/24 to 12/30: 15mg daily 12/31 to 01/06: 10mg daily 01/07 to 01/13: 10mg daily 01/14 to 01/20: 7.5mg daily 01/21 to 01/27: 7.5mg daily 01/28 to 02/03: 5mg daily 02/04 to 02/10: 5mg daily 02/11 to 02/17: 2.5mg daily 02/18 to 02/24: 2.5mg daily 02/25/2017: STOP Pancytopenia Improved overall Hb 8.0 on day of discharge Advised to continue taking a Multivitamin with B12 Hyperferritinemia To be repeated as outpatient in 2-3 weeks Likely part of disease process Bilateral lower extremity edema Continue to wear SCDs, elevate legs Will likely improve as disease process improves Elevated LFTs Improved throughout admission, now normal on discharge VTE: SCD's due to low platelets CODE STATUS: FULL DISPO: Discharge home on 11/13/16, will be driving down to [place] tomorrow, so no follow up was booked locally (though this was offered to them) Discharge instructions explained thoroughly with patient, copies of schedule provided to his parents as well Total Time Spent: Greater than 30 minutes This includes examination of the patient, discharge planning, medication reconciliation, and communication with other providers. (Elissa Turk MD) Resident Physician Supervision Note: I interviewed and examined the patient. Discussed with Dr. Turk and agree with findings and plan as documented in the note. Any exceptions or clarifications are listed here: None Documented By: Lukas Puri feeling OK. discussed plan going home once again, expressed understanding, answered all questions to the best of my ability. no other new complaints. ROS otherwise negative except for as above vitals noted nad breathing unlabored no pallor or icterus adult still's disease - steroid taper as outlined by rheumatology, outpt rheum follow up, stable for home. to walk frequently on drive home to protect against VTE; otherwise as above (Lukas Puri, D.O.) Discharge Instructions Please refer to the electronic Patient Visit Report (Discharge Instructions) for additional information. (Elissa Turk MD) Follow-Up With [facility] in 1-2 weeks With PCP in 1 week (Elissa Turk MD) Resident Tracking Resident Involvement: Resident Care Provided Care Provided: Adult [facility] (Elissa Turk MD)
[2016-11-13 10:42] LABS: POTASSIUM 3.7 mmol/L (3.5-5.1)
[2016-11-13 10:47] VITALS: BP 118/74; PULSE 105; TEMP 36.7; O2SAT 98
--- NOTE | 2017-02-28 07:43 | EMERGENCY ROOM VISIT NOTE ---
History Report prepared by Tommy: Roselyn Huffman Under the Supervision of: Dr. Jose Malloy D.O. First contact with patient: 19:04 Chief Complaint: FEVER Stated Complaint: SWOLLEN FEET History of Present Illness The patient is a 21 year old male who presents to the Emergency Room with complaints of waxing and waning lower extremity swelling beginning 3 days ago. The patient states that he noticed his feet swelling 3 days ago and since then it has moved up to his mid calves. He complains of a fever and calf swelling. He denies any trauma, redness, recent travel, urinary symptoms, cough, runny nose, sore throat, headache. The patient notes that no one at home is sick and he reports no known medical history. He notes that in the morning his feet slightly reduce swelling. The patient notes that he was sexually active 3 weeks ago and only had one partner. Source of History: patient Onset: 3 days ago Position: leg (bilateral), foot (bilateral) Quality: other (swelling) Timing: constant Associated Symptoms: + fevers, No headache, No sorethroat, No cough, No urinary symptoms Note: He denies any trauma, redness, recent travel, runny nose. Review of Systems See HPI for pertinent positives & negatives. A total of 10 systems reviewed and were otherwise negative. Past Medical & Surgical Medical Problems: (1) Hypoalbuminemia (2) Immunosuppressed status (3) Neutropenic fever (4) No Known Active Medical Problems (5) Still's disease of adult Family History No pertinent family history stated. Social History Smoking Status: Never Smoker Alcohol Use: none Drug Use: none Marital Status: single Housing Status: lives with roommate Occupation Status: employed, student Current/Historical Medications Scheduled PRN Pfhsdtcbnvgnggac-Rrcbfzhofy-Ua (Vicks Nyquil Cold & Flu), 1 DOSE PO HS PRN for COLD SYMPTOMS Allergies Coded Allergies: No Known Allergies (Unverified , 11/01/16) Physical Exam Vital Signs Physical Exam CONSTITUTIONAL/VITAL SIGNS: Reviewed / noted above. GENERAL: Non-toxic in appearance. INTEGUMENTARY: Warm, dry, and [place]. HEAD: Normocephalic. EYES: without scleral icterus or trauma. ENT/OROPHARYNX: clear and moist. LYMPHADENOPATHY/NECK: Is supple without lymphadenopathy or meningismus. RESPIRATORY: Lungs clear and equal. CARDIOVASCULAR: Regular rate and rhythm. GI/ABDOMEN: Soft and nontender. No organomegaly or pulsatile mass. No rebound or guarding. Normal bowel sounds. EXTREMITIES: Lower extremity edema bilaterally. BACK: No CVA tenderness. NEUROLOGICAL: Intact without focal deficits. PSYCHIATRIC: normal affect. MUSCULOSKELETAL: Normally developed with good muscle tone. Medical Decision & Procedures ER Provider Diagnostic Interpretation: Radiology results as stated below per my review and radiologist interpretation: CHEST ONE VIEW PORTABLE FINDINGS: The lungs are clear. Cardiac silhouette is normal in size. No pleural effusions. No pneumothorax. IMPRESSION: No acute process. Electronically signed by: Nasir Laboy M.D. 11/01/2016 8:00 PM Dictated Date/Time: 11/01/2016 7:58 PM Laboratory Results Test 11/01/16 19:30 11/01/16 19:35 Nucleated RBC Absolute Count (auto) 0.02 K/uL (0-0) Nucleated Red Blood Cells % 1.3 % Absolute Reticulocyte Count 0.08 10^6/uL (0.02-0.10) Percent Reticulocyte Count 3.0 % (0.5-2.0) Phosphorus Level 2.6 mg/dl (2.5-4.9) Direct Bilirubin 0.8 mg/dl (0-0.2) Total Creatine Kinase 66 U/L (39-308) Creatine Kinase MB < 0.5 ng/ml (0.5-3.6) Creatine Kinase MB Ratio (0-3.0) Troponin I < 0.015 ng/ml (0-0.045) Lipase 126 U/L (73-393) Lyme Disease IgG Antibody NEG (NEG) Lyme Disease IgM Antibody NEG (NEG) Hepatitis A IgM Antibody NON-REACTIVE (NON-REACTIVE) Hepatitis B Surface Antigen NEG (NEG) Hepatitis B Core IgM Antibody NON-REACTIVE (NON-REACTIVE) Hepatitis C Antibody NEG (NEG) Influenza Type A Antigen Neg for Influ A (NEG) Influenza Type B Antigen Neg for Influ B (NEG) Laboratory results as stated above per my review. Medications Administered Medications (Trade) Dose Ordered Sig/Ahsan Route Start Time Stop Time Status Last Admin Dose Admin Sodium Chloride 1,000 ml @ 999 mls/hr Q1H1M STAT IV 11/01/16 19:19 11/01/16 20:19 DC 11/01/16 19:19 999 MLS/HR Acetaminophen (Tylenol Tab) 1,000 mg NOW STAT PO 11/01/16 19:19 11/01/16 19:21 DC 11/01/16 19:31 1,000 MG Piperacillin Sod/ Tazobactam Sod (Zosyn Iv) 4.5 gm NOW STAT IV 11/01/16 21:23 11/01/16 21:24 DC 11/01/16 22:06 4.5 GM Acetaminophen (Tylenol Tab) 650 mg Q4H PRN PO 11/01/16 22:00 11/13/16 13:19 DC 11/07/16 17:34 650 MG ECG Indication: other (edema) Rate (beats per minute): 104 Rhythm: sinus tachycardia Findings: no ectopy, other (no inury) ED Course 1903: Previous medical records were reviewed. The patient was evaluated in room B4. A complete history and physical examination was performed. 1918: Tylenol Tab 1000mg PO, Sodium Chloride 1000 ml @ 999 mls/hr IV. 2118: Zosyn IV 3.375gm IV. 2122: Zosyn IV 4.5gm IV. 2134: I spoke to Dr. Gibbs. 2199: Discussed the patient's case with Dr. Gibbs. The patient will be evaluated for further treatment and disposition. 2203: On reevaluation, the patient is doing well. I discussed the results and findings with the patient. He verbalized agreement of the treatment plan. I spoke with Dr. Gibbs of the [facility] Hospitalist Service. The patient will be evaluated for further management and care. Medical Decision Differential diagnosis: Etiologies such as viral syndrome, otitis, pharyngitis, pneumonia, influenza, meningitis, urinary tract infection, sepsis, bacteremia, as well as others were entertained. Consults Time Called: 2130 Consulting Physician: Dr. Bernie Mendieta [facility] Returned Call: 2[address] The president spoke to Dr. Gibbs. Additional Consults: Time Called: 2156 Consulted Physician: Dr. Bernie Mendieta [facility] Returned Call: 2199 Additional Comments: Discussed the patient's case with Dr. Gibbs. The patient will be evaluated for further treatment and disposition. Impression Primary Impression: Fever Additional Impressions: Neutropenia Anemia Transaminitis Scribe Attestation The scribe's documentation has been prepared under my direction and personally reviewed by me in its entirety. I confirm that the note above accurately reflects all work, treatment, procedures, and medical decision making performed by me. Departure Information Dispostion Being Evaluated By Hospitalist Referrals No Doctor, Assigned (PCP) Patient Instructions My [facility] Problem Qualifiers
== END 2016-11-13 13:19 | disposition home or self-care (01) | DRG 545 ==
LOC: C.EDB 18:51 → C.4E 22:00 → ENRESERV 22:12
PROVIDERS: ADMIT Hospitalist; ATTEND Family Medicine
DX: M06.1 Adult-onset Still's disease (principal); D65 Disseminated intravascular coagulation [defibrination syndrome]; D61.818 Other pancytopenia; E88.09 Other disorders of plasma-protein metabolism, not elsewhere classified; R59.1 Generalized enlarged lymph nodes; Z79.899 Other long term (current) drug therapy